=== PATIENT | female | born 1960 | race Two or more races ===

== ENCOUNTER 2025-01-03 17:07 | Emergency (ER) | payer MEDICAID, SELFPAY ==
[2025-01-03 17:07] VITALS: BMI 34.7
[2025-01-03 17:14] VITALS: BP 86/52; BP 89/56; PULSE 82; RESP 20; TEMP 37; O2SAT 99
--- NOTE | 2025-01-03 17:22 | EKG_ITS ---
[facility] Test Date: 2025-01-03 Pat Name: CIARAN VILLEGAS Department: Room: - Gender: Female Health Assistant: : 1960 Requested By: Francis Rae (LUCILA) Order Number: [id number] Reading MD: Francis Rae (SPORTS WRITER) Measurements Intervals [place] Rate: 65 P: 51 AK: 197 QRS: 249 QRSD: 166 T: 18 QT: 402 QTc: 420 Interpretive Statements SINUS RHYTHM RIGHT AXIS DEVIATION [QRS AXIS > 100] RIGHT BUNDLE BRANCH BLOCK [120+ ms QRS DURATION, UPRIGHT V1, 40+ ms S IN I/aVL/V4/V5/V6] Compared to ECG 01/09/2024 12:42:57 No significant changes /store/S0/[id number].pdf
--- NOTE | 2025-01-03 17:24 | XR_ITS ---
Examination: CT abdomen with intravenous contrast CT pelvis with intravenous contrast 2-D coronal reconstructions 2-D sagittal reconstructions Date and time of exam:1957 hours INDICATIONS: Generalized abdominal pain, history cholecystectomy 2 weeks ago. CTDI: vol (mGy) 12 DLP: (mGycm) 805 Technique: Multiple axial sections of the abdomen and pelvis have been obtained. 64 slice high-resolution scanner used. 3 mm axial sections have been obtained, post intravenous injection 60 cc Isovue 370 2-D sagittal, coronal reconstructions obtained. Low dose protocols were performed. One or more of the following dose reduction techniques were used; automated exposure control, adjustment of the mA and/or KV according to patient size, use of iterative reconstruction technique. Findings: No focal liver lesions Absent gallbladder Spleen not enlarged No pancreatic or adrenal mass No extrahepatic biliary tract dilatation No renal or ureteral calculi, no hydronephrosis Aortic calcification or aneurysmal dilatation Normal appendix Colonic diverticulosis No diverticulitis Urinary bladder and Moderate osteopenia IMPRESSION: No renal or ureteral calculi, no hydronephrosis Normal appendix Colonic diverticulosis, no diverticulitis
--- NOTE | 2025-01-03 17:24 | XR_ITS ---
Examination: AP chest single view TECHNIQUE: AP portable semiupright chest single view Date and time: 5:30, 2024, 1734 hours INDICATIONS: Chest pain and shortness of breath today. FINDINGS: Normal heart size. No pneumonia or pulmonary edema. Moderate osteopenia IMPRESSION: No pneumonia or pulmonary edema
[2025-01-03] MEDS: SODIUM CHLORIDE 0.9% 1000 ML 1,000 ML 999 ML IV (17:43)
[2025-01-03 17:45] VITALS: PULSE 65
[2025-01-03 17:53] LABS: Basophils % (Auto) 0 % (0-2.5); Eosinophils # (Auto) 0.1 Thou/mm3 (0.0-0.5); Eosinophils % (Auto) 1 % (0-10); Hemoglobin 11.2 g/dL (12.0-16.0); Immature Granulocytes % (Auto) 0 % (0-0); Immature Granulocytes Auto 0.03 Thou/mm3 (0.00-0.00); Lymphocytes # (Auto) 3.3 Thou/mm3 (1.0-4.8); Lymphocytes % (Auto) 32 % (10-50); Mean Corpuscular HGB Conc 33.9 g/dl (31.0-37.0); Mean Corpuscular Hemoglobin 28.2 pg (25.0-35.0); Mean Corpuscular Volume 83 fL (80-100); Monocytes # (Auto) 0.9 Thou/mm3 (0.0-0.8); Monocytes % (Auto) 9 % (0-12); Neutrophils # (Auto) 6.1 Thou/mm3 (1.8-7.7); Neutrophils % (Auto) 58 % (37-80); Nucleated Red Blood Cell % 0 /100 WBC (0); Platelet Count 337 Thou/mm3 (140-440); Red Blood Count 3.97 Miln/mm3 (4.00-5.20); White Blood Count 10.5 Thou/mm3 (3.6-11.0)
--- NOTE | 2025-01-03 17:54 | XR_ITS ---
Examination: CT chest with intravenous contrast 2-D sagittal and coronal reconstructions Exam date and time: January 03, 2025 1958 hours INDICATION: Shortness of breath chest pain today CTDI:vol (mGy) 14 DLP: (mGycm) 410 Technique: Multiple axial sections of the thorax have been obtained. Sections have been obtained, 3 mm slice thickness. Mediastinal and lung density settings have been obtained. Intravenous contrast administered, 60 cc Isovue-370. 2-D sagittal, coronal images obtained. Low dose protocols were performed. One or more of the following dose reduction techniques were used; automated exposure control, adjustment of the mA and/or KV according to patient size, use of iterative reconstruction technique. Findings: Mild enlargement cardiac contour No thoracic aortic aneurysm dilatation No pulmonary artery emboli on this non-CTA study No pneumonia or pulmonary edema Atelectasis in the lingular segment IMPRESSION: No mediastinal lymphadenopathy. No pneumonia or pulmonary edema Minor atelectasis in the lingular segment
--- NOTE | 2025-01-03 17:55 | XR_ITS ---
Examination: Abdomen sonogram, Limited Date and time of exam: January 03, 2025 1814 hours TECHNIQUE: Siddiqui scale sonographic images abdomen January 03, 2025 1814 hours INDICATION: Epigastric pain beginning 2 months ago FINDINGS: Absent gallbladder Common bile duct 0.3 cm Pancreatic head 1.8 cm Liver 17.8 cm fatty infiltration lobular contour Normal hepatopedal portal venous flow Patent IVC IMPRESSION: Normal common bile duct Mild hepatomegaly primary hepatocellular disease fatty infiltration
--- NOTE | 2025-01-03 18:15 | EDNOTE_ITS ---
ED Abdominal Pain RME/HPI General Chief Complaint: Abdominal Pain Stated complaint: DIZZINESS ABD/BACK PAIN X15D Time seen by provider: 01/03/25 17:53 Arrival date/time: 01/03/25 17:07 RME / HPI RME / HPI narrative: This section includes all my notes and documentations, including HPI, PE, and ED course. Chalo Weaver MD HPI: 64 y/o female presents to ED c/o severe upper abdominal pain and vomiting x several days. Patient had gall bladder removed several months ago. No other complaints. ROS: All negative except as documented in HPI. Physical Exam: General: Alert and oriented. In obvious pain. Eyes: Conjunctivae and lids clear. ENT: No nasal congestion. Neck: Supple. Heart: RRR. Lungs: No respiratory distress. Good air movement. No rhonchi, wheezing, rales. Abdomen: Soft, epigastric abdominal tenderness. Normal bowel sounds. No distension. No rebound or guarding. Back: No CVA tenderness. Skin: Warm and dry. Neuro: Alert and oriented X 3. I reviewed all diagnostic test results. My interpretation of the EKG is sinus rhythm with no acute ST?T changes. My interpretation of the chest x-ray is NAD. My review of the Abdomen/Pelvis CT report is NAD. My review of the Chest CT report is NAD. My review of the Gall Bladder US report is NAD. Blood tests unremarkable. At this point, diagnoses include Stomach Ulcer. Treatment here included Morphine, Zofran, IV fluid, famotidine, and Protonix. Significant improvement noted. Recommended more outpatient care. Based on my best medical judgment, made decision no further evaluation or treatment indicated at this time. Patient understands and agrees to the discharge instructions customized and printed, see below. Discharge instructions from Dr. Weaver: ?After evaluation, your symptoms are due to stomach ulcer (see attached handout).? ?To help heal the ulcer, take Omeprazole 40 mg every morning and Famotidine 40 mg at bedtime for a week then as needed. Tylenol with codeine for severe pain. ?Zofran for nausea/vomiting.? Clear liquid diet for 24 hours.? Then slowly advance diet as tolerated. ?Avoid food and beverages that can trigger and worsen ulcers.? See attached handout. ?See a private doctor on 01/06/25 for recheck. To make sure there is no serious intra-abdominal condition, ask for help with more investigation not available here in the ER.? Such as EGD or scoping the stomach, colonoscopy or scoping the colon, and referral to see motion picture actor. Ask to review all test results and official radiology reports, to make sure you receive all necessary follow-ups and monitoring. ?Seek immediate medical care with worsening or with any concerns. Chalo Weaver MD Related Data Previous Rx's ?Medication ?Instructions ?Recorded ciprofloxacin HCl 500 mg tablet 500 mg PO BID #14 tabs 01/09/24 (Cipro) acetaminophen 300 mg-codeine 30 mg 2 tab PO Q8H PRN pa in #20 tabs 01/03/25 tablet famotidine 40 mg tablet 40 mg PO .bedtime #30 tabs 0 01/03/25 omeprazole 40 mg capsule,delayed 40 mg PO QDAY #30 cap s 01/03/25 release ondansetron 4 mg disintegrating 4 mg PO TID PRN nausea and 01/03/25 tablet vomiting 30 days #10 tabs Allergies Allergy/AdvReac Type Severity Reaction Status Date / Time No Known Allergies Allergy Verified 01/03/25 17:09 Review of Systems Review of Systems Systems Reviewed: All systems reviewed, normal except as documented Past Medical History Surgical History SURGICAL: Positive Abdominal Surgery ED Exam Narrative Physical exam: Refer to HPI above Course Course Course Narrative: CXR is ordered for determining the etiology of shortness of breath. Quality Measures none Orders Category Date Time Status CT Screening NOW Care 01/03/25 17:[address] Screening NOW Care 01/03/25 17:54 Completed Deburring And Tooling Machine Operator NOW Care 01/03/25 17:24 Completed EKG (ED ONLY) *Do not use* NOW Care 01/03/25 17:23 Completed Insert IV NOW Care 01/03/25 17:23 Completed Saline [Insert IV] NOW Care 01/03/25 17:54 Completed Straight [In and Out Catheter] X1 Care 01/03/25 17:[address] abdomen pelvis w con Stat Exams 01/03/25 17:[address] chest w con Stat Exams 01/03/25 17:54 Completed EKG (ED Only) Stat Exams 01/03/25 17:22 Draft US gall bladder Stat Exams 01/03/25 17:55 Completed XR chest 1V portable Stat Exams 01/03/25 17:24 Completed Amylase Stat Lab 01/03/25 17:39 Completed CBC Stat Lab 01/03/25 17:39 Completed Comprehensive Metabolic Panel Stat Lab 01/03/25 17:39 Completed Iron Panel Stat Lab 01/03/25 17:39 Completed Lipase Stat Lab 01/03/25 17:39 Completed Magnesium Stat Lab 01/03/25 17:39 Completed Partial Thromboplastin Time Stat Lab 01/03/25 17:39 Completed Prothrombin Time with INR Stat Lab 01/03/25 17:39 Completed Troponin I Stat Lab 01/03/25 17:39 Completed Type and Screen Stat Lab 01/03/25 18:30 Completed Famotidine Inj [Pepcid Inj] Med 01/03/25 21:08 Discontinued 20 mg IVP X1 ONE Morphine Inj Med 01/03/25 17:54 Discontinued 6 mg IVP X1 ONE Ondansetron Inj [Zofran Inj] Med 01/03/25 17:54 Discontinued 4 mg IVP X1 ONE Pantoprazole Inj [Protonix Inj] Med 01/03/25 21:08 Discontinued 40 mg IVP X1 ONE Sodium Chloride 0.9% 1000 ml [Ns] 1,000 ml Med 01/03/25 17:23 Discontinued IV 999 mls/hr cloNIDine HCL [Catapres] Med 01/03/25 22:13 Discontinued 0.2 mg PO X1 ONE Vital Signs Vital signs: Vital Signs Temperature 98.6 F 01/03/25 17:14 Pulse Rate 82 01/03/25 17:14 Respiratory Rate 20 01/03/25 17:14 Blood Pressure 86/52 L 01/03/25 17:14 Pulse Oximetry (%) 99 01/03/25 17:14 Oxygen Delivery Method Room Air 01/03/25 17:14 Abdominal Pain MDM MDM Narrative MDM Narrative:: Scribe Attestation: I, Yola Yen am scribing for and in the presence of Dr. Weaver. Provider Notation: Although this document has been carefully reviewed, there may still be some phonetic and other typographical errors.? These errors are purely grammatical due to imperfections in the software program and should not be construed in any way to? compromise the substance of the patient's medical care during this visit. 64 y/o female presents to ED c/o severe upper abdominal pain and vomiting x several days. Patient had gall bladder removed several months ago. No other complaints. Patient data External records reviewed:: [facility] previous records (Reviewed prior ED records from 01/09/24. Patient was seen for UTI (urinary tract infection).) Clinical information provided by:: patient Social determinants that could affect healthcare access:: none Patient has the following chronic illnesses:: None reported How is presenting disease/condition affected by chronic disease/condition?: no chronic disease Evaluation data The following diagnostics were reviewed and interpreted by me:: lab results, radiology exam(s) and EKG tracing(s) Lab and/or radiology exams considered but not ordered:: None Interpretation Summary: I reviewed all diagnostic test results. My interpretation of the EKG is sinus rhythm with no acute ST?T changes. My interpretation of the chest x-ray is NAD. My review of the Abdomen/Pelvis CT report is NAD. My review of the Chest CT report is NAD. My review of the Gall Bladder US report is NAD. Blood tests unremarkable. Medications / Prescriptions Medications or Prescriptions considered but not ordered:: None Medication administrations:: Medication Administration History Discontinued Medications Clonidine (Clonidine Hcl 0.1 Mg Tablet) 0.2 mg PO X1 ONE Stop: 01/03/25 22:14 Last Admin: 01/03/25 23:18 Dose: Not Given Documented By: SE Non-Admin Reason: Cancelled by Provider Famotidine (Famotidine Inj 10 Mg/Ml Vial 2 Ml) 20 mg IVP X1 ONE Stop: 01/03/25 21:09 Last Admin: 01/03/25 23:19 Dose: 20 mg Documented By: AVERY Sodium Chloride (Ns) 1,000 mls @ 999 mls/hr IV .Q1H1M ONE Stop: 01/03/25 18:23 Last Infusion: 01/03/25 19:00 Dose: Infused Documented By: Admin: 01/03/25 17:43 Dose: 999 mls/hr Documented By: NAHOMI Morphine Sulfate (Morphine Sulf Inj 10 Mg/Ml Vial) 6 mg IVP X1 ONE Stop: 01/03/25 17:55 Last Admin: 01/03/25 18:40 Dose: 6 mg Documented By: DAQUAN Comments: HR 71 BP 195/73 SPO2 100RA Ondansetron HCl (Ondansetron Inj 2 Mg/Ml Inj 2 Ml) 4 mg IVP X1 ONE; Protocol Stop: 01/03/25 17:55 Last Admin: 01/03/25 18:40 Dose: 4 mg Documented By: TM Pantoprazole Sodium (Pantoprazole Inj 40 Mg Vial) 40 mg IVP X1 ONE Stop: 01/03/25 21:09 Last Admin: 01/03/25 23:19 Dose: 40 mg Documented By: CG Zofran, Morphine, IV fluid, Lasix, Protonix, famotidine. Consultations Consultation(s) initiated? (list below): No Diagnosis Differential diagnosis abdominal pain: abdominal pain, acute appendicitis, calculus of kidney, constipation, diverticulitis, gastroenteritis, pancreatitis, small bowel obstruction and other (GERD) Most likely diagnosis given after review of the tests above:: Stomach Ulcer Admission Indicated Admission indicated?: not indicated Explain why admission is indicated or not indicated:: With significant improvement, there was no indication for admission.? Admission Request Was there a request for admission?: No Disposition Plan Disposition Plan: Discharge Discharge Attestation Discharge Attestation: The patient and all family members were given an opportunity to ask questions and understood the discharge instructions. Discharge instructions specifically effects, indications for sooner follow up or return to the emergency department, and the expected course of current diagnosis. Patient condition: Stable Discharge Plan Plan Patient Disposition: HOME (Self Care) Prescriptions/Referrals Prescriptions/Med Rec: New famotidine 40 mg tablet 40 mg PO .bedtime Qty: 30 0RF acetaminophen-codeine 300-30 mg tablet 2 tab PO Q8H MDD 6 PRN (Reason: pain) Qty: 20 0RF omeprazole 40 mg capsule,delayed release(DR/EC) 40 mg PO QDAY Qty: 30 0RF ondansetron 4 mg tablet,disintegrating 4 mg PO TID PRN (Reason: nausea and vomiting) 30 Days Qty: 10 0RF No Action ciprofloxacin HCl [Cipro] 500 mg tablet 500 mg PO BID Qty: 14 0RF Referrals: No Primary/Family,Physician [Primary Care Provider] - In 1 week Problem List Clinical Impression: Stomach ulcer Patient/Caregiver Discharge Instructions Discharge Activity: activity as tolerated Education Materials: ED PEPTIC ULCER vs GASTRITIS Additional Instructions: Discharge instructions from Dr. Weaver: ?After evaluation, your symptoms are due to stomach ulcer (see attached handout).? ?To help heal the ulcer, take Omeprazole 40 mg every morning and Famotidine 40 mg at bedtime for a week then as needed. Tylenol with codeine for severe pain. ?Zofran for nausea/vomiting.? Clear liquid diet for 24 hours.? Then slowly advance diet as tolerated. ?Avoid food and beverages that can trigger and worsen ulcers.? See attached handout. ?See a private doctor on 01/06/25 for recheck. To make sure there is no serious intra-abdominal condition, ask for help with more investigation not available here in the ER.? Such as EGD or scoping the stomach, colonoscopy or scoping the colon, and referral to see motion picture actor. Ask to review all test results and official radiology reports, to make sure you receive all necessary follow-ups and monitoring. ?Seek immediate medical care with worsening or with any concerns. Instrucciones de elmo del Dr. Weaver: ?Despu?s de la evaluaci?n, florin s?ntomas se deben a luci ?lcera estomacal (kaitlin folleto adjunto). ?Para ayudar a cicatrizar la ?lcera, tome omeprazol 40 mg todas las ma?anas y famotidina 40 mg antes de acostarse afshin luci semana y, posteriormente, seg?n sea necesario. Tylenol con code?na para el dolor intenso. ?Zofran para las n?useas y los v?mitos. Dieta l?quida afshin 24 horas. Despu?s, aumente gradualmente la dieta seg?n la tolerancia. ?Evite alimentos y bebidas que puedan desencadenar y empeorar las ?lceras. Kaitlin folleto adjunto. ?Consulte con un m?dico particular el 01/06/25 para luci nueva revisi?n. Para asegurarse de que no haya luci afecci?n intraabdominal grave, solicite ayuda con otras pruebas que no est?n disponibles en urgencias, magali luci endoscopia estomacal (EGD) o luci endoscopia g?strica, luci colonoscopia o luci endoscopia de colon, y la derivaci?n a un gastroenter?logo. Solicite la revisi?n de todos los resultados de las pruebas y los informes radiol?gicos oficiales para asegurarse de recibir todo el seguimiento y la monitorizaci?n necesarios. ?Busque atenci?n m?dica inmediata si presenta empeoramiento o cualquier inquietud. Print Language: Angolan Stand Alone Forms: Kerry Award Info., Patient Portal Info Letter
[2025-01-03 18:20] LABS: Alanine Aminotransferase 11 U/L (10-49); Albumin, Serum 4.5 gm/dL (3.4-4.8); Albumin/Globulin Ratio 1.7 (1.2-2.2); Alkaline Phosphatase 123 U/L (46-116); Anion Gap 11 (7-16); Aspartate Amino Transferase 14 U/L (0-34); BUN/Creatinine Ratio 13 Ratio (12-20); Bilirubin,Total 0.2 mg/dL (0.3-1.2); Blood Urea Nitrogen 15 mg/dL (9-23); Calcium 9.7 mg/dL (8.3-10.6); Calcium (Corrected) 9.7 mg/dL (8.5-10.1); Carbon Dioxide 23.7 mMol/L (20.0-31.0); Chloride 100 mMol/L (98-107); Creatinine (Component) 1.2 mg/dL (0.6-1.3); Estimated Creatinine Clearance 45.8 mL/min (>60); Globulin 2.7 gm/dL (2.3-3.5); Glucose 178 mg/dL (74-106); Lipase 37 U/L (12-53); Osmolality,Calculated 274 (275-295); Potassium 4.1 mMol/L (3.4-5.1); Sodium 135 mMol/L (136-145); Total Protein 7.2 gm/dL (5.7-8.2); Troponin I < 0.020 ng/mL (0.0-0.045); eGFR 50 See Note
[2025-01-03 18:21] LABS: INR 0.9 (0.9-1.3); Partial Thromboplastin Time 27.1 Seconds (22.0-36.0); Prothrombin Time 10.1 Seconds (9.0-12.2)
[2025-01-03 18:38] VITALS: BP 165/77; PULSE 73; RESP 18; TEMP 36.8; O2SAT 99
[2025-01-03] MEDS: MORPHINE SULF INJ 10 MG/ML VIAL 6 MG IVP (18:40)
[2025-01-03] MEDS: ONDANSETRON INJ 2 MG/ML INJ 2 ML 4 MG IVP (18:40)
[2025-01-03 18:54] LABS: Amylase 41 U/L (30-118); Magnesium 1.8 mg/dL (1.6-2.6)
[2025-01-03 19:17] VITALS: BP 165/77; PULSE 74; RESP 17; TEMP 36.7; O2SAT 98
--- NOTE | 2025-01-03 19:27 | PC.NURSE ---
Jewelry Technician assumes care of patient at this time, pt is A/O x 3 with no c/o pain at this time. Bed in low position and locked with side rails up x 2 with call light in reach of patient
[2025-01-03 20:24] LABS: Iron 35 mcg/dL (50-170); Percent Iron Saturation 9 % (20-55); Total Iron Binding Capacity 360 mcg/dL (250-425); Unsaturated Iron Binding 325 (225-295)
--- NOTE | 2025-01-03 21:30 | PC.NURSE ---
Pt remains A/O x 3 with no reports of pain or acute distress. Pt bed remains in low position and locked with side rails up x 2, call light in reach
--- NOTE | 2025-01-03 23:05 | PC.NURSE ---
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
[2025-01-03 23:12] VITALS: BP 113/73; PULSE 94; RESP 19; TEMP 36.8; O2SAT 98
[2025-01-03] MEDS: PANTOPRAZOLE INJ 40 MG VIAL IVP (23:19)
[2025-01-03] MEDS: FAMOTIDINE INJ 10 MG/ML VIAL 2 ML 20 MG IVP (23:19)
== END 2025-01-03 23:48 | disposition home or self-care (01) ==
PROVIDERS: Nurse Practitioner Primary Care; Emergency Provider Emergency Medicine
DX: K25.9 Gastric ulcer, unspecified as acute or chronic, without hemorrhage or perforation (principal); R06.02 Shortness of breath; R07.9 Chest pain, unspecified; R10.13 Epigastric pain; I45.10 Unspecified right bundle-branch block
CPT/HCPCS: 36415; 71045; 71260; 74177; 76705; 80053; 81001; 82150; 83540; 83550; 83690; 83735; 84484; 85025; 85610; 85730; 86850; 86900; 86901; 93005; 96361; 96374; 96375; 99285; A4649; J2270; J2405; J2470; J3490; J7030; Q9967

== ENCOUNTER 2025-01-13 12:28 | Emergency (ER) | payer MEDICAID, SELFPAY ==
[2025-01-13 12:29] VITALS: BMI 30.9
[2025-01-13 12:43] VITALS: BP 78/50; BP 78/52; PULSE 89; RESP 18; TEMP 36.7; O2SAT 98
--- NOTE | 2025-01-13 12:48 | EDRME_ITS ---
Rapid Medical Screening Exam [facility] Arrival date/time: 01/13/25 12:28 64-year-old female with no known medical history presents to the emergency room with a chief complaint of dizziness, lightheadedness and black tarry stools. Patient states she was told she has a gastric ulcer, but has not had her appointment with her fire prevention forester yet Patient was discharged and educated to follow-up with primary care provider in the next 24 to 48 hours and return to the emergency room for any evidence of worsening signs or symptoms Chief Complaint: Abdominal Pain Time Seen by Provider: 01/13/25 12:32 Vital signs: Vital Signs Temperature 98.0 F 01/13/25 12:43 Pulse Rate 89 01/13/25 12:43 Respiratory Rate 18 01/13/25 12:43 Blood Pressure 78/52 L 01/13/25 12:43 Pulse Oximetry (%) 98 01/13/25 12:43 Oxygen Delivery Method Room Air 01/13/25 12:43 Vital signs reviewed by provider: Yes
[2025-01-13] MEDS: SODIUM CHLORIDE 0.9% 1000 ML 1,000 ML 999 ML IV (13:09)
[2025-01-13 13:28] LABS: Basophils % (Auto) 0 % (0-2.5); Eosinophils # (Auto) 0.1 Thou/mm3 (0.0-0.5); Eosinophils % (Auto) 1 % (0-10); Hematocrit 32.2 % (36.0-46.0); Hemoglobin 11.3 g/dL (12.0-16.0); Immature Granulocytes % (Auto) 1 % (0-0); Immature Granulocytes Auto 0.05 Thou/mm3 (0.00-0.00); Lymphocytes # (Auto) 1.7 Thou/mm3 (1.0-4.8); Lymphocytes % (Auto) 23 % (10-50); Mean Corpuscular HGB Conc 35.1 g/dl (31.0-37.0); Mean Corpuscular Hemoglobin 27.6 pg (25.0-35.0); Mean Corpuscular Volume 79 fL (80-100); Monocytes # (Auto) 0.8 Thou/mm3 (0.0-0.8); Monocytes % (Auto) 11 % (0-12); Neutrophils # (Auto) 4.7 Thou/mm3 (1.8-7.7); Neutrophils % (Auto) 64 % (37-80); Nucleated Red Blood Cell % 0 /100 WBC (0); Platelet Count 258 Thou/mm3 (140-440); RDW Standard Deviation 38.2 fL (36.4-46.3); Red Blood Count 4.09 Miln/mm3 (4.00-5.20); White Blood Count 7.4 Thou/mm3 (3.6-11.0)
--- NOTE | 2025-01-13 13:37 | EDNOTE_ITS ---
ED Abdominal Pain RME/HPI General Chief Complaint: Abdominal Pain Stated complaint: DIZZY, ABD PAIN Time seen by provider: 01/13/25 12:32 Arrival date/time: 01/13/25 12:28 Limitations: no limitations RME / HPI RME / HPI narrative: 01/13/25 12:28 64-year-old female with no known medical history presents to the emergency room with a chief complaint of dizziness, lightheadedness and black tarry stools. 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 was sent home on famotidine and Carafate which does not help. on the way here received a call from GI doctor in [place] has her endoscopy scheduled for tomorrow. Patient has a history complicated by surgery for lap shelly over a month ago at [facility], but was lost to follow up. ended up back at [place] when they found choledocholithiasis. Reports she is diabetic and did not know if this was from dehydration, her diabetes, or her ulcer. Related Data Previous Rx's ?Medication ?Instructions ?Recorded ciprofloxacin HCl 500 mg tablet 500 mg PO BID #14 tabs 01/09/24 (Cipro) acetaminophen 300 mg-codeine 30 mg 2 tab PO Q8H PRN pa in #20 tabs 01/03/25 tablet famotidine 40 mg tablet 40 mg PO .bedtime #30 tabs 0 01/03/25 omeprazole 40 mg capsule,delayed 40 mg PO QDAY #30 cap s 01/03/25 release ondansetron 4 mg disintegrating 4 mg PO TID PRN nausea and 01/03/25 tablet vomiting 30 days #10 tabs dicyclomine 10 mg capsule 10 mg PO TID #30 caps pantoprazole 40 mg tablet,delayed 40 mg PO QDAY #30 ta bs 01/13/25 release (Protonix) Allergies Allergy/AdvReac Type Severity Reaction Status Date / Time No Known Allergies Allergy Verified 01/03/25 17:09 Review of Systems Review of Systems Systems Reviewed: All systems reviewed, normal except as documented Constitutional Constitutional: Denies fever(s) Gastrointestinal Gastrointestinal: Reports as per HPI Genitourinary Genitourinary: Denies hematuria ED Exam General Limitations: Present no limitations General appearance: Present alert and in no apparent distress Head Head exam: Present atraumatic Eye Eye exam: Present normal appearance, PERRL and EOMI ENT ENT exam: Present normal exam, normal oropharynx and mucous membranes moist Neck Neck exam: Present normal inspection, full ROM and trachea midline Chest Chest inspection: Present normal inspection and symmetric chest wall rise Respiratory Respiratory exam: Present normal lung sounds bilaterally Cardiovascular Cardiovascular exam: Present regular rate, normal rhythm and normal heart sounds Abdominal Exam Abdominal exam: Present soft, tenderness (Epigastric, surgical scars noted, no rebound, refused rectal exam) and normal bowel sounds Extremities Exam Extremities exam: Present normal inspection and full ROM Back Exam Back exam: Present normal inspection and full ROM Psychiatric Psychiatric exam: Present normal affect and normal mood Skin Skin exam: Present warm, dry, intact and normal color Course Quality Measures none Orders Category Date Time Status Insert IV STAT Care 01/13/25 12:47 Completed CBC Stat Lab 01/13/25 13:00 Completed CMP [Comprehensive Metabolic Panel] Stat Lab 01/13/25 13:00 Completed Lipase Stat Lab 01/13/25 13:00 Completed PT [Prothrombin Time with INR] Stat Lab 01/13/25 13:00 Completed PTT [Partial Thromboplastin Time] Stat Lab 01/13/25 13:00 Completed Type and Screen Stat Lab 01/13/25 13:00 Completed UA [Urinalysis] Stat Lab 01/13/25 15:32 Completed Urine Culture Stat Lab 01/13/25 15:32 Received Morphine Inj Med 01/13/25 15:10 Discontinued 4 mg IVP X1 ONE Pantoprazole Inj [Protonix Inj] Med 01/13/25 15:10 Discontinued 40 mg IVP X1 ONE Sodium Chloride 0.9% 1000 ml [Ns] 1,000 ml Med 01/13/25 12:47 Discontinued IV 999 mls/hr Reevaluation(s) Reevaluation #1: 1636 pt is ready to go home, bp is normal, no longer in pain, and dizziness has resolved Vital Signs Vital signs: Vital Signs Temperature 98.0 F 01/13/25 12:43 Pulse Rate 89 01/13/25 12:43 Respiratory Rate 18 01/13/25 12:43 Blood Pressure 78/52 L 01/13/25 12:43 Pulse Oximetry (%) 98 01/13/25 12:43 Oxygen Delivery Method Room Air 01/13/25 12:43 Abdominal Pain MDM MDM Narrative MDM Narrative:: 64-year-old female with epigastric pain which is chronic. Was lightheaded and with low blood pressure which resolved with fluids and medications,also history of GI bleed. Today's H&H was stable and does not require further intervention. Has endoscopy appointment tomorrow and was advised to start new medications which are pantoprazole and dicyclomine and keep appointment for endoscopy. Return to ER symptoms worsen Patient data External records reviewed:: [facility] previous records Clinical information provided by:: patient Social determinants that could affect healthcare access:: other (specify) (Difficulty making appointment with PCP) Patient has the following chronic illnesses:: Recent gallbladder surgery, known GI ulcer How is presenting disease/condition affected by chronic disease/condition?: caused by Evaluation data The following diagnostics were reviewed and interpreted by me:: lab results Lab and/or radiology exams considered but not ordered:: CT scan of abdomen was considered again however unlikely to have no evolution of symptoms. Interpretation Summary: Normal CBC with stable H&H CMP showed hyponatremia however once corrected for glucose is normal. No signs of DKA. Medications / Prescriptions Medications or Prescriptions considered but not ordered:: Narcotics considered for home however given symptoms of dizziness did not want to exacerbate Medication administrations:: Medication Administration History Discontinued Medications Sodium Chloride (Ns) 1,000 mls @ 999 mls/hr IV .Q1H1M ONE Stop: 01/13/25 13:47 Last Infusion: 01/13/25 15:34 Dose: Infused Documented By: Admin: 01/13/25 13:09 Dose: 999 mls/hr Documented By: SERGIO Morphine Sulfate (Morphine Sulf Inj 10 Mg/Ml Vial) 4 mg IVP X1 ONE Stop: 01/13/25 15:11 Last Admin: 01/13/25 15:29 Dose: 4 mg Documented By: SERGIO Pantoprazole Sodium (Pantoprazole Inj 40 Mg Vial) 40 mg IVP X1 ONE Stop: 01/13/25 15:11 Last Admin: 01/13/25 15:29 Dose: 40 mg Documented By: SERGIO Change medications for home gave dose here Consultations Consultation(s) initiated? (list below): No Diagnosis Differential diagnosis abdominal pain: abdominal pain, gastroenteritis, pancreatitis and other (Hemorrhage from GI bleed) Most likely diagnosis given after review of the tests above:: Upper GI bleed stable Gastritis Admission Indicated Admission indicated?: not indicated Admission Request Was there a request for admission?: No Disposition Plan Disposition Plan: Discharge Discharge Attestation Discharge Attestation: The patient and all family members were given an opportunity to ask questions and understood the discharge instructions. Discharge instructions specifically effects, indications for sooner follow up or return to the emergency department, and the expected course of current diagnosis. Patient condition: Stable Discharge Plan Plan Patient Disposition: HOME (Self Care) Discharge Disposition comment: Follow-up with PCP in 2 to 3 days Prescriptions/Referrals Prescriptions/Med Rec: New pantoprazole [Protonix] 40 mg tablet,delayed release (DR/EC) 40 mg PO QDAY Qty: 30 0RF dicyclomine 10 mg capsule 10 mg PO TID Qty: 30 0RF No Action ciprofloxacin HCl [Cipro] 500 mg tablet 500 mg PO BID Qty: 14 0RF famotidine 40 mg tablet 40 mg PO .bedtime Qty: 30 0RF acetaminophen-codeine 300-30 mg tablet 2 tab PO Q8H MDD 6 PRN (Reason: pain) Qty: 20 0RF omeprazole 40 mg capsule,delayed release(DR/EC) 40 mg PO QDAY Qty: 30 0RF ondansetron 4 mg tablet,disintegrating 4 mg PO TID PRN (Reason: nausea and vomiting) 30 Days Qty: 10 0RF Referrals: Carol Wheeler MD [Primary Care Provider] - In 1 week Problem List Clinical Impression: Abdominal pain, Acute dehydration, Acute hypotension Patient/Caregiver Discharge Instructions Education Materials: Abdominal Pain, ED Low Blood Pressure, All Causes Print Language: Hungarian Stand Alone Forms: Kerry Award Info., Patient Portal Info Letter PA/MAINTENANCE OF WAY SUPERINTENDENT Supervising Physician PA/MAINTENANCE OF WAY SUPERINTENDENT Supervising Physician: Dr. gonzalez
[2025-01-13 13:39] LABS: INR 0.9 (0.9-1.3); Partial Thromboplastin Time 21.7 Seconds (22.0-36.0); Prothrombin Time 10.4 Seconds (9.0-12.2)
[2025-01-13 13:42] LABS: Alanine Aminotransferase 22 U/L (10-49); Albumin, Serum 4.3 gm/dL (3.4-4.8); Albumin/Globulin Ratio 1.8 (1.2-2.2); Alkaline Phosphatase 146 U/L (46-116); Anion Gap 13 (7-16); BUN/Creatinine Ratio 23 Ratio (12-20); Bilirubin,Total 0.3 mg/dL (0.3-1.2); Blood Urea Nitrogen 30 mg/dL (9-23); Calcium 9.4 mg/dL (8.3-10.6); Calcium (Corrected) 9.4 mg/dL (8.5-10.1); Carbon Dioxide 25.7 mMol/L (20.0-31.0); Chloride 96 mMol/L (98-107); Creatinine (Component) 1.3 mg/dL (0.6-1.3); Estimated Creatinine Clearance 44.6 mL/min (>60); Globulin 2.4 gm/dL (2.3-3.5); Glucose 244 mg/dL (74-106); Lipase 35 U/L (12-53); Osmolality,Calculated 284 (275-295); Potassium 4.8 mMol/L (3.4-5.1); Sodium 135 mMol/L (136-145); Total Protein 6.7 gm/dL (5.7-8.2); eGFR 46 See Note
[2025-01-13 15:23] VITALS: BP 134/78; PULSE 83; TEMP 36.7; O2SAT 99
[2025-01-13] MEDS: MORPHINE SULF INJ 10 MG/ML VIAL 4 MG IVP (15:29)
[2025-01-13] MEDS: PANTOPRAZOLE INJ 40 MG VIAL IVP (15:29)
[2025-01-13 15:36] LABS: Collection Type, Urine Clean Catch
[2025-01-13 15:49] LABS: Bilirubin,Urine Negative (Negative); Blood,Urine Negative (Negative); Clarity,Urine Clear (Clear/Hazy); Color,Urine Lt-Yellow (Lt Yel-Yel); Glucose, Urine Negative (Negative); Hyaline Casts,Urine < 1 /hpf (0-1); Ketones,Urine Negative (Negative); Leukocyte Esterase,Urine Positive (Negative); Nitrite,Urine Negative (Negative); Protein,Urine Negative (Neg - Trace); RBC,Urine 2 /hpf (0-3); Specific Gravity,Urine 1.009 (1.001-1.035); Squamous Epithelial Cell,Urine 1 /hpf (0-5); Urobilinogen,Urine Negative mg/dL (0.0-1.0); WBC,Urine 3 /hpf (0-5)
[2025-01-13 16:23] VITALS: BP 133/85; PULSE 75; RESP 14; TEMP 36.7; O2SAT 95
== END 2025-01-13 17:29 | disposition home or self-care (01) ==
PROVIDERS: Nurse Practitioner Family; Emergency Provider Family Medicine; PCP Family Medicine
DX: E86.0 Dehydration (principal); I95.9 Hypotension, unspecified; R10.9 Unspecified abdominal pain
CPT/HCPCS: 36415; 80053; 81001; 83690; 85025; 85610; 85730; 86850; 86900; 86901; 87086; 96361; 96374; 96375; 99284; J2270; J2470; J7030

== ENCOUNTER 2025-01-24 20:14 | Emergency (ER) | payer MEDICAID, SELFPAY ==
[2025-01-24 20:17] VITALS: BP 92/57; PULSE 90; RESP 17; TEMP 36.6; O2SAT 99; BMI 25.7
[2025-01-24 21:04] LABS: Collection Type, Urine Clean Catch
--- NOTE | 2025-01-24 21:05 | EDNOTE_ITS ---
ED Abdominal Pain RME/HPI General Chief Complaint: Abdominal Pain Stated complaint: abd pain dizziness and nausea Time seen by provider: 01/24/25 20:48 Arrival date/time: 01/24/25 20:14 64F with history of DM presents to ED with several months of intermittent ab pain, dizziness, and non-bloody N/V. Patient had an EGD 10 days ago in [place], but she doesn't know the results. Patient currently only has ab pain for the past week after the EGD. Limitations: no limitations Related Data Previous Rx's ?Medication ?Instructions ?Recorded ciprofloxacin HCl 500 mg tablet 500 mg PO BID #14 tabs 01/09/24 (Cipro) acetaminophen 300 mg-codeine 30 mg 2 tab PO Q8H PRN pa in #20 tabs 01/03/25 tablet famotidine 40 mg tablet 40 mg PO .bedtime #30 tabs 0 01/03/25 omeprazole 40 mg capsule,delayed 40 mg PO QDAY #30 cap s 01/03/25 release ondansetron 4 mg disintegrating 4 mg PO TID PRN nausea and 01/03/25 tablet vomiting 30 days #10 tabs dicyclomine 10 mg capsule 10 mg PO TID #30 caps pantoprazole 40 mg tablet,delayed 40 mg PO QDAY #30 ta bs 01/13/25 release (Protonix) Allergies Allergy/AdvReac Type Severity Reaction Status Date / Time No Known Allergies Allergy Verified 01/24/25 20:26 Review of Systems Review of Systems Systems Reviewed: All systems reviewed, normal except as documented Constitutional Constitutional: Reports system reviewed and no additional complaints, except as documented, Denies fever(s) and Denies headache(s) ENT Ears, Nose, Mouth, and Throat: Reports as per HPI, Denies disequilibrium, Denies headache(s) and Reports vertigo Cardiovascular Cardiovascular: Reports system reviewed and no additional complaints, except as documented, Denies chest pain and Denies dyspnea Respiratory Respiratory: Reports system reviewed and no additional complaints, except as documented, Denies cough and Denies dyspnea Gastrointestinal Gastrointestinal: Reports system reviewed and no additional complaints, except as documented, Reports as per HPI, Reports abdominal pain, Reports nausea and Reports vomiting Neurologic Neurologic: Reports system reviewed and no additional complaints, except as documented, Denies confusion, Denies disequilibrium, Denies headache(s) and Reports vertigo Psychiatric Psychiatric: Denies confusion Past Medical History Past Medical History CARDIAC: Positive Cardiac Disorders; Negative Congestive Heart Failure RESPIRATORY: Negative Chronic Obstructive Pulmonary Disease (COPD) or Asthma GENITOURINARY: Positive Renal Disease ENDOCRINE: Positive Diabetes Mellitus Type 2; Negative Diabetes Mellitus Type 1 HEMATOLOGIC: Negative Sickle Cell Disease Surgical History SURGICAL: Positive Abdominal Surgery Social History SMOKING STATUS: Never smoker ED Exam General Limitations: Present no limitations General appearance: Present alert and in no apparent distress Head Head exam: Present atraumatic Eye Eye exam: Present normal appearance, PERRL and EOMI ENT ENT exam: Present normal exam, normal oropharynx and mucous membranes moist Neck Neck exam: Present normal inspection, full ROM and trachea midline Chest Chest inspection: Present normal inspection and symmetric chest wall rise Respiratory Respiratory exam: Present normal lung sounds bilaterally Cardiovascular Cardiovascular exam: Present regular rate, normal rhythm and normal heart sounds Abdominal Exam Abdominal exam: Present soft and normal bowel sounds Abdominal tenderness: Present epigastrium and mild Extremities Exam Extremities exam: Present normal inspection and full ROM Back Exam Back exam: Present normal inspection and full ROM Neurological Exam Neurological exam: Present alert, oriented X3 and CN II-XII intact Psychiatric Psychiatric exam: Present normal affect and normal mood Skin Skin exam: Present warm, dry, intact and normal color Course Quality Measures none Orders Category Date Time Status CT Screening NOW Care 01/24/25 22:[address] Screening NOW Care 01/25/25 00:31 Completed Insert IV NOW Care 01/24/25 22:[address] angio chest abd w/wo Stat Exams 01/25/25 00:31 Taken CBC Stat Lab 01/24/25 21:20 Completed CMP [Comprehensive Metabolic Panel] Stat Lab 01/24/25 21:20 Completed INR [Prothrombin Time with INR] Stat Lab 01/24/25 21:12 Completed Lactate (Lactic Acid) Stat Lab 01/24/25 21:20 Completed Lactic Acid, 3 HR Stat Lab 01/25/25 01:18 Completed Lipase Stat Lab 01/24/25 21:20 Completed PTT [Partial Thromboplastin Time] Stat Lab 01/24/25 21:12 Completed Procalcitonin Stat Lab 01/24/25 21:20 Completed Urinalysis, C/S if Indicated Stat Lab 01/24/25 20:57 Completed Famotidine [Pepcid] Med 01/24/25 20:49 Discontinued 40 mg PO X1 ONE Pantoprazole Inj [Protonix Inj] Med 01/24/25 22:22 Discontinued 40 mg IVP X1 ONE Ringers Lactated 1000 ml [Lactated Ringers] 1,000 ml Med 01/24/25 22:22 Discontinued IV 999 mls/hr Sodium Chloride 0.9% 1000 ml [Ns] 1,000 ml Med 01/24/25 22:34 Discontinued IV 999 mls/hr Sodium Chloride 0.9% 1000 ml [Ns] 1,000 ml Med 01/24/25 22:35 Discontinued IV 999 mls/hr mg Hyd/Al Hyd/Cesar Susp [Maalox Susp] Med 01/24/25 20:49 Discontinued 30 ml PO X1 ONE Vital Signs Vital signs: Vital Signs Temperature 97.8 F 01/24/25 20: Pulse Rate 90 01/24/25 20:17 Respiratory Rate 17 01/24/25 20:17 Blood Pressure 92/57 L 01/24/25 20:17 Pulse Oximetry (%) 99 01/24/25 20:17 Oxygen Delivery Method Room Air 01/24/25 20:17 O2 at 99% on RA and WNLs Abdominal Pain MDM MDM Narrative MDM Narrative:: 64F with history of DM presents to ED with several months of intermittent ab pain, dizziness, and non-bloody N/V. Patient had an EGD 10 days ago in [place], but she doesn't know the results. Patient currently only has ab pain. Patient currently only has ab pain for the past week after the EGD. Physical exam reveals mild epigastric tenderness. Patient is afebrile, calm, and alert. Initial lactate 3.0 that decreased to WNLs w/o meds. CTA no active bleeding or other abnormalities. Mild anemia. CMP high glucose but normal anion gap. Pain improved with meds. Patient data External records reviewed:: [facility] previous records Clinical information provided by:: patient Social determinants that could affect healthcare access:: none Patient has the following chronic illnesses:: DM How is presenting disease/condition affected by chronic disease/condition?: exacerbated by Evaluation data The following diagnostics were reviewed and interpreted by me:: lab results Lab and/or radiology exams considered but not ordered:: ordered Interpretation Summary: above Medications / Prescriptions Medications or Prescriptions considered but not ordered:: ordered Medication administrations:: Medication Administration History Discontinued Medications Al Hydrox/Mg Hydrox/Simethicone (Mg Hyd/Al Hyd/Cesar (Maalox Reg) Susp 30 Ml Udc) 30 ml PO X1 ONE Stop: 01/24/25 20:50 Last Admin: 01/24/25 21:50 Dose: 30 ml Documented By: Famotidine (Famotidine 20 Mg Tablet) 40 mg PO X1 ONE Stop: 01/24/25 20:50 Last Admin: 01/24/25 21:51 Dose: 40 mg Documented By: Lactated Ringer's (Lactated Ringers) 1,000 mls @ 999 mls/hr IV .Q1H1M ONE Stop: 01/24/25 23:22 Last Admin: 01/25/25 01:35 Dose: Not Given Documented By: BD Non-Admin Reason: Cancelled by Provider Sodium Chloride (Ns) 1,000 mls @ 999 mls/hr IV .Q1H1M ONE Stop: 01/24/25 23:34 Last Infusion: 01/25/25 04:04 Dose: Infused Documented By: Admin: 01/25/25 02:18 Dose: 999 mls/hr Documented By: BD Sodium Chloride (Ns) 1,000 mls @ 999 mls/hr IV .Q1H1M ONE Stop: 01/24/25 23:35 Last Infusion: 01/25/25 04:03 Dose: Infused Documented By: Admin: 01/25/25 02:18 Dose: 999 mls/hr Documented By: BD Pantoprazole Sodium (Pantoprazole Inj 40 Mg Vial) 40 mg IVP X1 ONE Stop: 01/24/25 22:23 Last Admin: 01/25/25 02:17 Dose: 40 mg Documented By: BD above Consultations Consultation(s) initiated? (list below): No Diagnosis Differential diagnosis abdominal pain: abdominal pain, acute appendicitis, calculus of kidney, constipation, diverticulitis, endometriosis, gastroenteritis, pancreatitis, small bowel obstruction and other (gastritis) Most likely diagnosis given after review of the tests above:: gastritis Admission Indicated Admission indicated?: not indicated Admission Request Was there a request for admission?: No Disposition Plan Disposition Plan: Discharge Discharge Attestation Discharge Attestation: The patient and all family members were given an opportunity to ask questions and understood the discharge instructions. Discharge instructions specifically effects, indications for sooner follow up or return to the emergency department, and the expected course of current diagnosis. Patient condition: Stable Discharge Plan Plan Patient Disposition: HOME (Self Care) Discharge Disposition comment: Stable Prescriptions/Referrals Prescriptions/Med Rec: No Action ciprofloxacin HCl [Cipro] 500 mg tablet 500 mg PO BID Qty: 14 0RF famotidine 40 mg tablet 40 mg PO .bedtime Qty: 30 0RF acetaminophen-codeine 300-30 mg tablet 2 tab PO Q8H MDD 6 PRN (Reason: pain) Qty: 20 0RF omeprazole 40 mg capsule,delayed release(DR/EC) 40 mg PO QDAY Qty: 30 0RF ondansetron 4 mg tablet,disintegrating 4 mg PO TID PRN (Reason: nausea and vomiting) 30 Days Qty: 10 0RF pantoprazole [Protonix] 40 mg tablet,delayed release (DR/EC) 40 mg PO QDAY Qty: 30 0RF dicyclomine 10 mg capsule 10 mg PO TID Qty: 30 0RF Referrals: Yovany Garcia MD [Primary Care Provider] - In 1 week Problem List Clinical Impression: Gastritis Patient/Caregiver Discharge Instructions Education Materials: ED Gastritis (Adult) Additional Instructions: Please follow-up with PCP within 24-48 hours and return immediately if symptoms worsen. Print Language: Greek Stand Alone Forms: Patient Portal Info Letter NAZARIO/DORIS Supervising Physician NAZARIO/DORIS Supervising Physician: Dr. Weaver
[2025-01-24 21:15] LABS: Bilirubin,Urine Negative (Negative); Blood,Urine Negative (Negative); Clarity,Urine Turbid (Clear/Hazy); Color,Urine Yellow (Lt Yel-Yel); Culture Indicated,Urine Contaminated; Glucose, Urine 3+ (Negative); Hyaline Casts,Urine 1 /hpf (0-1); Ketones,Urine Trace (Negative); Leukocyte Esterase,Urine Positive (Negative); Nitrite,Urine Negative (Negative); Protein,Urine 1+ (Neg - Trace); RBC,Urine 3 /hpf (0-3); Specific Gravity,Urine 1.024 (1.001-1.035); Squamous Epithelial Cell,Urine 18 /hpf (0-5); WBC,Urine 18 /hpf (0-5)
[2025-01-24] MEDS: MG HYD/AL HYD/SIME (Maalox Reg) SUSP 30 ML UDC PO (21:50)
[2025-01-24] MEDS: FAMOTIDINE 20 MG TABLET 40 MG PO (21:51)
[2025-01-24 22:17] LABS: Basophils % (Auto) 0 % (0-2.5); Eosinophils # (Auto) 0.1 Thou/mm3 (0.0-0.5); Eosinophils % (Auto) 1 % (0-10); Hematocrit 32.4 % (36.0-46.0); Hemoglobin 11.1 g/dL (12.0-16.0); Immature Granulocytes % (Auto) 1 % (0-0); Immature Granulocytes Auto 0.09 Thou/mm3 (0.00-0.00); Lymphocytes # (Auto) 2.4 Thou/mm3 (1.0-4.8); Lymphocytes % (Auto) 18 % (10-50); Mean Corpuscular HGB Conc 34.3 g/dl (31.0-37.0); Mean Corpuscular Hemoglobin 27.6 pg (25.0-35.0); Mean Corpuscular Volume 81 fL (80-100); Monocytes # (Auto) 1.1 Thou/mm3 (0.0-0.8); Monocytes % (Auto) 8 % (0-12); Neutrophils # (Auto) 10.1 Thou/mm3 (1.8-7.7); Neutrophils % (Auto) 73 % (37-80); Nucleated Red Blood Cell % 0 /100 WBC (0); Platelet Count 404 Thou/mm3 (140-440); RDW Standard Deviation 38.8 fL (36.4-46.3); Red Blood Count 4.02 Miln/mm3 (4.00-5.20); White Blood Count 13.8 Thou/mm3 (3.6-11.0)
[2025-01-24 22:32] LABS: Alanine Aminotransferase 14 U/L (10-49); Albumin, Serum 4.5 gm/dL (3.4-4.8); Albumin/Globulin Ratio 1.8 (1.2-2.2); Alkaline Phosphatase 154 U/L (46-116); Anion Gap 9 (7-16); Aspartate Amino Transferase 16 U/L (0-34); BUN/Creatinine Ratio 11 Ratio (12-20); Bilirubin,Total 0.4 mg/dL (0.3-1.2); Blood Urea Nitrogen 15 mg/dL (9-23); Carbon Dioxide 27.3 mMol/L (20.0-31.0); Chloride 96 mMol/L (98-107); Creatinine (Component) 1.4 mg/dL (0.6-1.3); Estimated Creatinine Clearance 43.8 mL/min (>60); Globulin 2.5 gm/dL (2.3-3.5); Glucose 387 mg/dL (74-106); Lipase 28 U/L (12-53); Osmolality,Calculated 281 (275-295); Potassium 4.4 mMol/L (3.4-5.1); Procalcitonin 0.16 ng/ml (0.0-0.49); Sodium 132 mMol/L (136-145); eGFR 42 See Note
[2025-01-24 23:11] LABS: INR 0.9 (0.9-1.3); Partial Thromboplastin Time 27.5 Seconds (22.0-36.0); Prothrombin Time 10.1 Seconds (9.0-12.2)
--- NOTE | 2025-01-25 00:31 | XR_ITS ---
Examination: CTA chest, with intravenous contrast. CTA abdomen, with intravenous contrast. CT chest without intravenous contrast CT abdomen without intravenous contrast 2-D sagittal and coronal reconstructions. 3-D reconstructions. Date and time of exam: January 25, 2025 0052 hours INDICATIONS: Dizziness chest pain shortness of breath history gastric ulcers CTDI vol (mgy) 10.6 DLP (MGycm) 1146 Technique: Multiple CTA images, 2.0 mm slice thickness, obtained chest, abdomen, pelvis, with the high-resolution 64 slice scanner. 100 cc Isovue 370 is administered intravenously. Sagittal and coronal 2-D reconstructions are obtained. 3-D reconstructions, angiographic images are obtained. 3-D postprocessing, including vascular maximum intensity projections. Low dose protocols were performed. One or more of the following dose reduction techniques were used; automated exposure control, adjustment of the mA and/or KV according to patient size, use of iterative reconstruction technique. Findings: Bilateral thyromegaly including 17 mm nodule right lobe of the thyroid near the isthmus No thoracic aortic aneurysm dilatation or dissection No pulmonary artery filling defects Mild enlargement cardiac contour No pneumonia or pulmonary edema 10 mm focal area of enhancement in the posterior lateral margin of the right lobe of the liver Spleen is not enlarged Mild thickening of the lower wall of the esophagus Absent gallbladder No extrahepatic biliary tract dilatation No pancreatic or adrenal mass Moderate renal parenchymal scar formation Abdominal aortic calcification Moderate osteopenia IMPRESSION: Bilateral thyromegaly including 17 mm nodule right lobe of the thyroid near the isthmus, consider dedicated thyroid sonography follow-up No thoracic or abdominal aortic aneurysm dilatation or dissection Negative for pulmonary artery emboli No pneumonia or pulmonary edema 10 mm focal area of enhancement in the posterior lateral margin right lobe of the liver, recommend hepatic sonography follow-up Moderate bilateral renal parenchymal scar formation, no hydronephrosis or ureteral calculi
[2025-01-25 00:58] LABS: Reflex Lactate? Y
[2025-01-25 01:24] LABS: Lactic Acid, 3 HR 1.9 mMol/L (0.4-2.0)
[2025-01-25 02:08] VITALS: BP 159/83; PULSE 83; RESP 16; TEMP 36.7; O2SAT 98
[2025-01-25] MEDS: PANTOPRAZOLE INJ 40 MG VIAL IVP (02:17)
[2025-01-25] MEDS: SODIUM CHLORIDE 0.9% 1000 ML 1,000 ML 999 ML IV ×2 (02:18)
--- NOTE | 2025-01-25 03:30 | PRELIM_ITS ---
CT angiogram of the chest and Abdomen without and with intravenous contrast (axial sections with sagittal and coronal reformats) January 25, 2025 0052 hours Clinical History: Ulcers, elevated lactate, dizziness Comparison: None Findings: Chest: Heart is normal in size. There is no pericardial or pleural effusion. There is no thoracic aortic aneurysm or dissection. There is no filling defect within the pulmonary arterial circulation. Thyroid is enlarged and heterogeneous suggesting multinodular goiter. There is no thoracic lymphadenopathy. There is dependent subsegmental atelectasis in the lungs. There is no pneumothorax. There is no acute osseous abnormality. There is degenerative change in the spine. Abdomen: There is pneumobilia which is most likely postsurgical. The gallbladder is surgically absent. There is fatty liver. The spleen is not enlarged. The pancreas and adrenals are unremarkable. There is cortical scarring of the kidneys which may indicate sequelae of prior infection or prior ischemia. There is underdistention of the stomach which limits evaluation. Bowel within the abdomen is unremarkable. There are vascular calcifications along the abdominal aorta without aneurysmal dilatation. The celiac artery, superior mesenteric artery, bilateral renal arteries and inferior mesenteric artery are patent. There is no free intraperitoneal air or fluid in the abdomen. There is no abdominal lymphadenopathy. There is degenerative change in the spine. Impression: 1. No thoracic aortic aneurysm or dissection. No pulmonary arterial embolism. No pericardial or pleural effusion. No pneumothorax. Multinodular thyroid goiter. Recommend correlation with nonemergent thyroid ultrasound. 2. No abdominal aortic aneurysm or dissection. Report Electronically Signed By: Brayden Cazares 01/25/2025 3:30:13 AM [EST]
[2025-01-25 04:04] VITALS: BP 185/93; PULSE 88; RESP 16; TEMP 36.9; O2SAT 99
== END 2025-01-25 04:15 | disposition home or self-care (01) ==
PROVIDERS: Physician Assistant; Emergency Provider Emergency Medicine; PCP Family Medicine
DX: K29.70 Gastritis, unspecified, without bleeding (principal)
CPT/HCPCS: 36415; 71275; 75635; 80053; 81001; 83605; 83690; 84145; 85025; 85610; 85730; 96361; 96374; 99285; A4649; J2470; J7030; Q9967; A9270

== ENCOUNTER 2025-04-06 12:33 | Emergency (ER) | payer MEDICAID, SELFPAY ==
[2025-04-06 13:10] VITALS: BP 117/71; PULSE 80; RESP 20; TEMP 36.8; O2SAT 98
--- NOTE | 2025-04-06 13:29 | PD.EDADULT ---
ED General RME/HPI General Chief complaint: Abdominal Pain Stated complaint: ABD PAIN, NAUSEA, DIZZY, HIP PAIN X 1 DAY Time Seen by Provider: 04/06/25 13:28 Arrival date/time: 04/06/25 12:33 CC: Abdominal pain HPI ongoing since last night 1 episode of nausea vomiting last night some nausea today denies any diarrhea. Has had abdominal pain for the past 6 months but worse today. Patient has been seen by her PCP and in the emergency room for same complaint. Patient after initial interview also states that she has been having some left anterior chest pain as well as low back pain. Related Data Previous Rx's ?Medication ?Instructions ?Recorded ciprofloxacin HCl 500 mg tablet 500 mg PO BID #14 tabs 01/09/24 (Cipro) acetaminophen 300 mg-codeine 30 mg 2 tab PO Q8H PRN pain #20 tabs 01/03/25 tablet famotidine 40 mg tablet 40 mg PO .bedtime #30 tabs 01/03/25 omeprazole 40 mg capsule,delayed 40 mg PO QDAY #30 caps 01/03/25 release dicyclomine 10 mg capsule 10 mg PO TID #30 caps 01/13/25 pantoprazole 40 mg tablet,delayed 40 mg PO QDAY #30 tabs 01/13/25 release (Protonix) cephalexin 500 mg capsule 500 mg PO TID #21 caps 04/06/25 meloxicam 7.5 mg tablet 7.5 mg PO QDAY #10 tabs 04/06/25 Allergies Allergy/AdvReac Type Severity Reaction Status Date / Time No Known Allergies Allergy Verified 04/06/25 12:37 Review of Systems Review of Systems Narrative Review of Systems: GEN: No fever, no chills, no weight loss EYES: No discharge, no visual changes, no pain HEENT: No ear pain, no congestion, no sore throat PULM: No shortness of breath, no cough, no congestion CV: No chest pain, no dyspnea on exertion, no palpitations GI: No nausea, no vomiting, no diarrhea, + pain, no constipation : No frequency, no urgency, no dysuria MUSC/SKEL: No joint pain, no back pain SKIN: No rash PSYCH: No hallucinations, no depression HEME/LYMPH: No easy bleeding or bruising tendencies NEURO: No weakness, no headache ED Exam Narrative Physical exam: [General: Appears not in any acute distress Head normocephalic HEENT: Within acceptable limits Neck is supple nontender Chest equal chest rise nontender to palpation Respiratory: Clear to auscultation no wheezes crackles or rubs CV: Rate rhythm is regular no murmurs rubs or clicks Abdomen is soft diffuse tenderness throughout, no reflexive guarding or rebound tenderness, no masses positive bowel sounds all 4 quadrants Back: No CVA tenderness no spinous process tenderness from cervical spine thoracic and lumbar spine Skin: Intact no petechiae rash induration ulceration or crepitus Extremities: Moving all extremity against resistance cap refill less than 2 seconds neurosensory intact Neuro: Awake alert oriented x3 Glascow coma 15 no focal deficits] Course Quality Measures none Orders Category Date Time Status EKG (ED ONLY) *Do not use* NOW Care 04/06/25 13:31 Completed EKG (ED Only) Stat Exams 04/06/25 13:30 Draft B-Type Natriuretic Peptide Stat Lab 04/06/25 13:35 Completed CBC Stat Lab 04/06/25 13:35 Completed Comprehensive Metabolic Panel Stat Lab 04/06/25 13:35 Completed Drug Screen,Urine Stat Lab 04/06/25 13:45 Completed Lipase Stat Lab 04/06/25 13:35 Completed Magnesium Stat Lab 04/06/25 13:35 Completed Partial Thromboplastin Time Stat Lab 04/06/25 13:35 Completed Prothrombin Time with INR Stat Lab 04/06/25 13:35 Completed Troponin I Stat Lab 04/06/25 13:35 Completed Urinalysis, C/S if Indicated Stat Lab 04/06/25 13:45 Completed mg Hyd/Al Hyd/Cesar Susp [Maalox Susp] Med 04/06/25 13:28 Discontinued 30 ml PO X1 ONE Vital Signs Vital signs: Vital Signs Temperature 98.3 F 04/06/25 13:10 Pulse Rate 80 04/06/25 13:10 Respiratory Rate 20 04/06/25 13:10 Blood Pressure 117/71 04/06/25 13:10 Pulse Oximetry (%) 98 04/06/25 13:10 Oxygen Delivery Method Room Air 04/06/25 13:10 Discharge Plan Plan Patient Disposition: HOME (Self Care) Patient condition on transfer: Stable Prescriptions/Referrals Prescriptions/Med Rec: New cephalexin 500 mg capsule 500 mg PO TID Qty: 21 0RF meloxicam 7.5 mg tablet 7.5 mg PO QDAY Qty: 10 0RF No Action ciprofloxacin HCl [Cipro] 500 mg tablet 500 mg PO BID Qty: 14 0RF famotidine 40 mg tablet 40 mg PO .bedtime Qty: 30 0RF acetaminophen-codeine 300-30 mg tablet 2 tab PO Q8H MDD 6 PRN (Reason: pain) Qty: 20 0RF omeprazole 40 mg capsule,delayed release(DR/EC) 40 mg PO QDAY Qty: 30 0RF pantoprazole [Protonix] 40 mg tablet,delayed release (DR/EC) 40 mg PO QDAY Qty: 30 0RF dicyclomine 10 mg capsule 10 mg PO TID Qty: 30 0RF Problem List Clinical Impression: Abdominal pain, UTI (urinary tract infection) Patient/Caregiver Discharge Instructions Other Activity Instructions:: Take your medications as prescribed follow-up with your primary care doctor. Education Materials: Abdominal Pain, ED CYSTITIS Female Adult Print Language: Bots[place] Stand Alone Forms: Norse Award Info., Work/School Release, Patient Portal Info Letter NAZARIO/DORIS Supervising Physician NAZARIO/DORIS Supervising Physician: Alexandro MALLORYP [facility] Clinical Information Provided by patient Medical Records Reviewed [facility] Labs/Rad/Tests considered, not Ordered None Chronic Illness/Social Conditions which may negatively complicate care or outcome(s)-explain: None or not applicable EKG EKG Interpretation narrative: EKG performed at 1334 shows ventricular rate of 83 FL interval 171 QRS of 149 QTc of 427 sinus rhythm right axis deviation no change from an EKG performed in January 2025. Lab Interpretation Lab(s) interpretation(s): CBC shows no acute leukocytosis and mild anemia 11.4 and 34.4 respectively. Platelet count at 383 Coags within acceptable limits CMP shows no acute acute electrolyte imbalances and then blood glucose of 281. No transaminitis or T. bili elevation. Troponin is negative BNP is negative Lipase is negative Medication Administration(s) Medication Administration History Discontinued Medications Al Hydrox/Mg Hydrox/Simethicone (Mg Hyd/Al Hyd/Cesar (Maalox Reg) Susp 30 Ml Udc) 30 ml PO X1 ONE Stop: 04/06/25 13:29 Last Admin: 04/06/25 13:41 Dose: 30 ml Documented By: MARY
--- NOTE | 2025-04-06 13:30 | EKG_ITS ---
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
[2025-04-06] MEDS: MG HYD/AL HYD/SIME (Maalox Reg) SUSP 30 ML UDC PO (13:41)
[2025-04-06 13:59] LABS: Collection Type, Urine Clean Catch
[2025-04-06 14:01] LABS: Basophils # (Auto) 0.0 Thou/mm3 (0.0-0.2); Basophils % (Auto) 0 % (0-2.5); Eosinophils # (Auto) 0.1 Thou/mm3 (0.0-0.5); Eosinophils % (Auto) 1 % (0-10); Hematocrit 34.4 % (36.0-46.0); Hemoglobin 11.4 g/dL (12.0-16.0); Immature Granulocytes Auto 0.03 Thou/mm3 (0.00-0.00); Lymphocytes # (Auto) 3.1 Thou/mm3 (1.0-4.8); Lymphocytes % (Auto) 30 % (10-50); Mean Corpuscular HGB Conc 33.1 g/dl (31.0-37.0); Mean Corpuscular Hemoglobin 27.5 pg (25.0-35.0); Mean Corpuscular Volume 83 fL (80-100); Monocytes # (Auto) 0.8 Thou/mm3 (0.0-0.8); Monocytes % (Auto) 8 % (0-12); Neutrophils # (Auto) 6.1 Thou/mm3 (1.8-7.7); Neutrophils % (Auto) 61 % (37-80); Nucleated Red Blood Cell # 0.00 Thou/mm3 (0.00-0.00); Nucleated Red Blood Cell % 0 /100 WBC (0); Platelet Count 383 Thou/mm3 (140-440); RDW Standard Deviation 41.1 fL (36.4-46.3); Red Blood Count 4.15 Miln/mm3 (4.00-5.20); White Blood Count 10.1 Thou/mm3 (3.6-11.0)
[2025-04-06 14:22] LABS: B-Type Natriuretic Peptide 30 pg/mL (0-100)
[2025-04-06 14:36] LABS: Alanine Aminotransferase 8 U/L (10-49); Albumin, Serum 4.6 gm/dL (3.4-4.8); Albumin/Globulin Ratio 1.7 (1.2-2.2); Alkaline Phosphatase 180 U/L (46-116); Anion Gap 10 (7-16); Aspartate Amino Transferase 12 U/L (0-34); BUN/Creatinine Ratio 18 Ratio (12-20); Bilirubin,Total 0.5 mg/dL (0.3-1.2); Blood Urea Nitrogen 18 mg/dL (9-23); Calcium 10.3 mg/dL (8.3-10.6); Calcium (Corrected) 10.3 mg/dL (8.5-10.1); Carbon Dioxide 27.1 mMol/L (20.0-31.0); Chloride 100 mMol/L (98-107); Creatinine (Component) 1.0 mg/dL (0.6-1.3); Globulin 2.7 gm/dL (2.3-3.5); Glucose 281 mg/dL (74-106); Lipase 24 U/L (12-53); Magnesium 2.1 mg/dL (1.6-2.6); Osmolality,Calculated 285 (275-295); Potassium 4.6 mMol/L (3.4-5.1); Sodium 137 mMol/L (136-145); Total Protein 7.3 gm/dL (5.7-8.2); Troponin I < 0.002 ng/mL (0.0-0.045); eGFR > 60 See Note
[2025-04-06 14:41] LABS: INR 0.9 (0.9-1.3); Partial Thromboplastin Time 25.1 Seconds (22.0-36.0); Prothrombin Time 10.4 Seconds (9.0-12.2)
[2025-04-06 14:43] VITALS: BP 163/82; PULSE 76; RESP 16; TEMP 36.8; O2SAT 100
[2025-04-06 14:48] LABS: Amphetamine/Methamp Scrn,U Negative (Negative); Barbiturate Screen,Urine Negative (Negative); Benzodiazepines Screen,Urine Negative (Negative); Benzoylecgonine Screen, Ur Negative (Negative); Fentanyl Screen,Urine Negative (Negative); Opiate Screen,Urine Negative (Negative); THC Screen,Urine Negative (Negative)
[2025-04-06 14:51] LABS: Bacteria,Urine Rare; Bilirubin,Urine Negative (Negative); Blood,Urine Negative (Negative); Clarity,Urine Turbid (Clear/Hazy); Color,Urine Yellow (Lt Yel-Yel); Culture Indicated,Urine Contaminated; Glucose, Urine 3+ (Negative); Hyaline Casts,Urine 1 /hpf (0-1); Ketones,Urine Negative (Negative); Leukocyte Esterase,Urine Positive (Negative); Nitrite,Urine Negative (Negative); PH,Urine 6.0 (5.0-7.0); Protein,Urine 1+ (Neg - Trace); RBC,Urine 5 /hpf (0-3); Specific Gravity,Urine 1.022 (1.001-1.035); Squamous Epithelial Cell,Urine 12 /hpf (0-5); Transitional Epi Cells,Urine 3 /hpf (0-5); Urobilinogen,Urine Negative mg/dL (0.0-1.0); WBC,Urine 89 /hpf (0-5)
[2025-04-06 15:08] VITALS: BP 174/85; PULSE 79; RESP 16; TEMP 36.6; O2SAT 99
== END 2025-04-06 15:08 | disposition home or self-care (01) ==
LOC: SERX 15:44
PROVIDERS: Registered Nurse General Practice; Emergency Provider Family Medicine; PCP Family Medicine
DX: N39.0 Urinary tract infection, site not specified (principal); I45.10 Unspecified right bundle-branch block; R10.9 Unspecified abdominal pain
CPT/HCPCS: 36415; 80053; 80307; 81001; 83690; 83735; 83880; 84484; 85025; 85610; 85730; 93005; 99284; A9270

== ENCOUNTER 2025-04-28 15:29 | Inpatient (IN) | payer MEDICAID, SELFPAY ==
[2025-04-28] VITALS (7 sets, daily range): BP systolic 111–186; BP diastolic 64–93; PULSE 77–101; RESP 14–98; TEMP 36.6–37; O2SAT 96–100; BMI 29.0
--- NOTE | 2025-04-28 15:41 | XR_ITS ---
Examination: PA lateral chest 2 views TECHNIQUE: Upright PA lateral chest 2 views Date and time: April 28, 2025 1611 hours FINDINGS: Normal heart size No pneumonia or pulmonary edema Moderate thoracic spondylosis Moderate osteopenia IMPRESSION: No pneumonia or pulmonary edema
--- NOTE | 2025-04-28 15:41 | EKG_ITS ---
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
--- NOTE | 2025-04-28 15:56 | EDNOTE_ITS ---
ED Chest Pain RME/HPI General Chief Complaint: General Adult/Misc Complain Stated Complaint: DIZZINESS WITH VOMITIG,HEADACHE, PAIN WITH URINATI Time Seen by Provider: 04/28/25 15:33 Source: patient Arrival date/time: 04/28/25 15:29 64-year-old female with no known medical history presents to the emergency room with a chief complaint of dizziness, vomiting, headache, and dysuria x 2 days Mode of arrival: ambulatory Limitations: no limitations Related Data Home Medications ?Medication ?Instructions ?Recorded ?Confirmed atorvastatin 20 mg tablet 20 mg PO QDAY 04/29/2504/29 ferrous sulfate 325 mg (65 mg 325 mg PO Q OTHER DAY 04/29/25 iron) tablet (FeroSul) glipizide 10 mg tablet 10 mg PO BID 04/29/25 lisinopril 5 mg tablet 5 mg PO QDAY 04/29/25 metformin 1,000 mg tablet 1,000 mg PO BID 04/29/25 nitrofurantoin 100 mg PO Q12H 04/29/2504/08 monohydrate/macrocrystals 100 mg capsule (Macrobid) ondansetron 4 mg disintegrating 4 mg PO Q12H 04/29/25 04/29/25 tablet promethazine 25 mg tablet 25 mg PO Q8HR 04/29/2504/29 sitagliptin phosphate 100 mg 100 mg PO QDAY 04/29/25 0 04/29/25 tablet (Januvia) sucralfate 1 gram tablet 1 g PO BID 04/29/25 04/29/25 Previous Rx's ?Medication ?Instructions ?Recorded famotidine 40 mg tablet 40 mg PO .bedtime #30 tabs 0 01/03/25 pantoprazole 40 mg tablet,delayed 40 mg PO QDAY #30 ta bs 01/13/25 release (Protonix) Allergies Allergy/AdvReac Type Severity Reaction Status Date / Time No Known Allergies Allergy Verified 04/28/25 15:32 Review of Systems Review of Systems Systems Reviewed: All systems reviewed, normal except as documented Constitutional Constitutional: Reports system reviewed and no additional complaints, except as documented, Denies fatigue, Denies fever(s), Denies headache(s) and Denies weakness Eyes Eyes: Reports system reviewed and no additional complaints, except as documented, Denies blurry vision and Denies change in vision ENT Ears, Nose, Mouth, and Throat: Reports system reviewed and no additional complaints, except as documented, Denies otalgia, Denies headache(s), Denies nasal congestion, Denies throat swelling and Denies vertigo Cardiovascular Cardiovascular: Reports system reviewed and no additional complaints, except as documented, Reports chest pain, Reports dyspnea, Denies dyspnea on exertion, Reports lightheadedness and Reports palpitations Respiratory Respiratory: Reports system reviewed and no additional complaints, except as documented, Denies chest congestion, Denies cough, Reports dyspnea, Denies dyspnea on exertion and Denies wheezing Gastrointestinal Gastrointestinal: Reports system reviewed and no additional complaints, except as documented, Denies abdominal pain, Denies cramping, Denies nausea and Denies vomiting Genitourinary Genitourinary: Reports system reviewed and no additional complaints, except as documented Musculoskeletal Musculoskeletal: Reports system reviewed and no additional complaints, except as documented and Denies back pain Integumentary/Breasts Skin/Breast: Reports system reviewed and no additional complaints, except as documented and Denies wounds Neurologic Neurologic: Reports system reviewed and no additional complaints, except as documented, Denies confusion, Denies headache(s), Denies lack of coordination, Denies vertigo and Denies weakness Psychiatric Psychiatric: Reports system reviewed and no additional complaints, except as doc umented, Denies anxiety, Denies confusion, Denies depression, Denies paranoia, Denies suicidal ideation and Denies tactile hallucinations Endocrine Endocrine: Reports system reviewed and no additional complaints, except as documented, Denies fatigue and Reports palpitations Hematologic/Lymphatic Hematologic/Lymphatic: Reports system reviewed and no additional complaints, except as documented and Denies lymphadenopathy Allergic/Immunologic Allergic/Immunologic: Reports system reviewed and no additional complaints, except as documented, Denies throat swelling, Denies urticaria and Denies wheezing Past Medical History Past Medical History CARDIAC: Positive Cardiac Disorders, Myocardial Infarction, Angina, Hypertension and Hypotension; Negative Congestive Heart Failure RESPIRATORY: Negative Chronic Obstructive Pulmonary Disease (COPD) or Asthma GASTROINTESTINAL: Positive Gall Bladder Disease and Ulcer GENITOURINARY: Negative Renal Disease MUSCULOSKELETAL: Positive Arthritis ENDOCRINE: Positive Diabetes Mellitus Type 2; Negative Diabetes Mellitus Type 1 HEMATOLOGIC: Positive Anemia; Negative Sickle Cell Disease Family History OTHER FAMILY HX: No cardiac family history reported. Surgical History SURGICAL: Positive Abdominal Surgery OTHER SURGICAL HX: Appendectomy Social History SMOKING STATUS: Never smoker Travel History EBOLA RISK: No ED Exam General Limitations: Present no limitations General appearance: Present alert and in no apparent distress Head Head exam: Present atraumatic Eye Eye exam: Present normal appearance, PERRL and EOMI ENT ENT exam: Present normal exam, normal oropharynx and mucous membranes moist Neck Neck exam: Present normal inspection, full ROM and trachea midline Chest Chest inspection: Present normal inspection and symmetric chest wall rise Respiratory Respiratory exam: Present normal lung sounds bilaterally; Absent respiratory distress, wheezes, stridor, accessory muscle use or prolonged expiratory phase Cardiovascular Cardiovascular exam: Present regular rate, normal rhythm, normal heart sounds, +S1 and +S2; Absent tachycardia or irregular rhythm Abdominal Exam Abdominal exam: Present soft and normal bowel sounds; Absent tenderness Extremities Exam Extremities exam: Present normal inspection and full ROM Back Exam Back exam: Present normal inspection and full ROM Neurological Exam Neurological exam: Present alert, oriented X3 and CN II-XII intact Psychiatric Psychiatric exam: Present normal affect and normal mood Skin Skin exam: Present warm, dry, intact and normal color Course Quality Measures none Orders Category Date Time Status Admit to Inpatient Status Routine Admission 04/28/25 18:25 Active Patient Condition Routine Admission 04/28/25 18:25 Ordered Bedside Blood Glucose Q6HR Care 04/28/25 18:39 Active Bedside COVID-19 Antigen Test NOW Care 04/28/25 15:41 Active Bedside Influenza A&B Antigen Test NOW Care 04/28/25 15:41 Completed COVID-19 Screening Questionnaire NOW Care 04/28/25 17:07 Active Continuous Pulse Oximetry NOW Care 04/28/25 18:25 Completed Decision to Admit X1 Care 04/28/25 17:07 Completed EKG (ED ONLY) *Do not use* NOW Care 04/28/25 15:41 Completed EKG (ED ONLY) *Do not use* NOW Care 04/28/25 17:16 Completed Flu & Pneumonia Vaccine Screen ONCE Care 04/28/25 18:25 Active NPO after Midnight ONCE Care 04/28/25 18:28 Active Notify provider NEEDED Care 04/28/25 18:25 Active Sequential Compression Device QSHIFT Care 04/28/25 18:25 Active Consult to Cardiology Stat Cons 04/28/25 17:01 Ordered Diet Cardiac Diet 04/28/25 Dinner Completed Diet NPO after Midnight Diet 04/29/25 00:01 Active CA echo doppler complete Routine Exams 04/28/25 18:27 Ordered EKG (ED Only) Stat Exams 04/28/25 15:41 Draft EKG (ED Only) Stat Exams 04/28/25 17:14 Draft XR chest 2V Stat Exams 04/28/25 15:41 Completed B-Type Natriuretic Peptide Stat Lab 04/28/25 15:51 Completed Basic Metabolic Panel AM DRAW Lab 04/30/25 05:00 Ordered Basic Metabolic Panel AM DRAW Lab 05/01/25 05:00 Ordered CBC AM DRAW Lab 04/29/25 06:48 Completed CBC AM DRAW Lab 04/30/25 05:00 Ordered CBC AM DRAW Lab 05/01/25 05:00 Ordered CBC Stat Lab 04/28/25 15:51 Completed Comprehensive Metabolic Panel Stat Lab 04/28/25 15:51 Completed Drug Screen,Urine Stat Lab 04/28/25 15:59 Completed Glycohemoglobin w (eAG) AM DRAW Lab 04/29/25 06:48 Completed Magnesium Stat Lab 04/28/25 15:51 Completed PT [Prothrombin Time with INR] Stat Lab 04/28/25 15:51 Completed PTT [Partial Thromboplastin Time] Stat Lab 04/28/25 15:51 Completed Partial Thromboplastin Time AM DRAW Lab 04/30/25 05:00 Ordered Prothrombin Time with INR AM DRAW Lab 04/30/25 05:00 Ordered Troponin I Q6H Lab 04/28/25 19:06 Completed Troponin I Q6H Lab 04/29/25 01:05 Completed Troponin I Stat Lab 04/28/25 15:51 Completed Urinalysis, C/S if Indicated Stat Lab 04/28/25 15:59 Completed Urine Culture Stat Lab 04/28/25 15:59 Received Acetaminophen Tab [Tylenol Tab] Med 04/28/25 18:25 Active 650 mg PO Q6H PRN Aspirin Med 04/28/25 18:25 Discontinued 325 mg PO X1 ONE Aspirin [Ecotrin] Med 04/29/25 09:00 Hold 81 mg PO QDAY Atorvastatin Calcium [Lipitor] Med 04/28/25 21:00 Active 80 mg PO HS Dextrose 50% Syr [D50w Syringe Abboject] Med 04/28/25 18:39 Active 25 ml IV Q15MIN PRN Dextrose 50% Syr [D50w Syringe Abboject] Med 04/28/25 18:39 Active 50 ml IV Q15MIN PRN Glucagon Inj Med 04/28/25 18:39 Active 1 mg IM Q15MIN PRN HYDROcodone*/APAP 5/325 [[place] 5/325] Med 04/28/25 18:25 Active 1 tab PO Q6HR PRN Heparin Inj Med 04/28/25 18:25 Discontinued 4,000 unit IV X1 ONE Heparin/D5w 25K 250 ML Ivpb [Heparin in D5w Ivpb] Med 04/28/25 18:30 Hold 25,000 unit in 250 ml IV 11.917 units/kg/hr INSULIN LISPRO (AdmeLOG) [HumaLOG] Med 04/29/25 07:30 Discontinued See Protocol SC AC Ondansetron Inj [Zofran Inj] Med 04/28/25 18:25 Active 4 mg IVP Q6H PRN Code Status Routine Oth 04/28/25 18:25 Ordered Oxygen Delivery PRN RT 04/28/25 18:25 Active Vital Signs Vital signs: Vital Signs Temperature 98.6 F 04/28/25 15:41 Pulse Rate 101 H 04/28/25 15:41 Respiratory Rate 18 04/28/25 15:41 Blood Pressure 111/64 04/28/25 15:41 Pulse Oximetry (%) 97 04/28/25 15:41 Oxygen Delivery Method Room Air 04/28/25 15:41 Chest Pain MDM Narrative MDM Narrative:: 64-year-old female with no known medical history presents to the emergency room with a chief complaint of dizziness, vomiting, headache, and dysuria x 2 days Patient is hemodynamically stable and in no apparent distress Patient is afebrile not tachycardic not tachypneic and her O2 saturation is 97% on room air Physical examination shows clear bilateral lung sounds there is no wheezing or any abnormal breath sounds. The patient has a strong and regular rhythm S1 and S2 noted. Patient is complaining of 7 out of 10 left-sided sternal chest pain that radiates up her left arm. CBC CMP were completed and were within normal limits. Patient's troponin was elevated at 0.124. Patient's EKG showed normal sinus rhythm at [address] elevation or depression. There was a 3rd degree block. The business office associate Dr. Vasquez was consulted and his recommendations were to admit the patient and he will come and see the patient and do an echocardiogram tomorrow morning. The ospitalist team was called and the patient was admitted Patient data External records reviewed:: [facility] previous records Clinical information provided by:: patient Social determinants that could affect healthcare access:: none Patient has the following chronic illnesses:: No medical history How is presenting disease/condition affected by chronic disease/condition?: no chronic disease Evaluation data The following diagnostics were reviewed and interpreted by me:: lab results and radiology exam(s) Lab and/or radiology exams considered but not ordered:: Labs and radiology exams considered and ordered Interpretation Summary: Chest o-yis-QHGHIDEK: Normal heart size No pneumonia or pulmonary edema Moderate thoracic spondylosis Moderate osteopenia IMPRESSION: No pneumonia or pulmonary edema Medications / Prescriptions Medications or Prescriptions considered but not ordered:: Medication given Medication administrations:: Medication Administration History Acetaminophen (Acetaminophen 325 Mg Tablet) 650 mg PO Q6H PRN PRN Reason: PAIN OR FEVER > 100.4 Stop: 05/28/25 18:24 Last Admin: 04/29/25 00:31 Dose: 650 mg Documented By: AM Hydrocodone Bitart/Acetaminophen (Hydrocodone/Apap 5/325 Tablet) 1 tab PO Q6HR PRN PRN Reason: PAIN SCALE 4-10(Mod-Sev Stop: 05/03/25 18:24 Last Admin: 04/29/25 09:24 Dose: 1 tab Documented By: Admin: 04/28/25 22:44 Dose: 1 tab Documented By: AM Al Hydrox/Mg Hydrox/Simethicone (Mg Hyd/Al Hyd/Cesar (Maalox Reg) Susp 30 Ml Udc) 15 ml PO QID [facility] Stop: 05/29/25 11:59 Last Admin: 04/29/25 11:13 Dose: 15 ml Documented By: BR Aspirin (Aspirin Ec 81 Mg Tabec) 81 mg PO QDAY CARLITOS On Hold: 04/29/25 10:53 Stop: 05/29/25 08:59 Last Admin: 04/29/25 09:18 Dose: 81 mg Documented By: BR Atorvastatin Calcium (Atorvastatin Calcium 20 Mg Tablet) 80 mg PO HS [facility] Stop: 05/28/25 20:59 Last Admin: 04/28/25 21:33 Dose: 80 mg Documented By: SM Dextrose (Dextrose 50%-Water Inj 50 Ml Syringe) 25 ml IV Q15MIN PRN PRN Reason: BG 50-70 responsive npo pt Stop: 05/28/25 18:38 Dextrose (Dextrose 50%-Water Inj 50 Ml Syringe) 50 ml IV Q15MIN PRN PRN Reason: BG <50 OR BG <70 & pt unresponsive Stop: 05/28/25 18:38 Glucagon (Glucagon Inj 1 Mg Vial) 1 mg IM Q15MIN PRN PRN Reason: BG <70, and no IV access Heparin Sodium/Dextrose (Heparin In D5w Ivpb) 25,000 unit in 250 mls @ 10 mls/hr IV .Q24H [facility]; Protocol On Hold: 04/28/25 22:40 Stop: 05/12/25 18:29 Last Titration: 04/28/25 21:00 Dose: 0 units/kg/hr, 0 mls/hr Documented By: QUINCY Co-signed By: AB Admin: 04/28/25 18:56 Dose: 11.917 units/kg/hr, 10 mls/hr Documented By: NOEL Co-signed By: TANNER Ceftriaxone Sodium/Dextrose (Rocephin/D5w 1gm Iv Premix) 1 gm in 50 mls @ 100 mls/hr IV QDAY@1400 CARLITOS Stop: 05/05/25 19:06 Last Admin: 04/29/25 13:19 Dose: 100 mls/hr Documented By: Infusion: 04/28/25 20:30 Dose: Infused Documented By: Admin: 04/28/25 19:43 Dose: 100 mls/hr Documented By: QUINCY Insulin Human Lispro (Insulin Lispro (Admelog) 1 Unit/0.01 Ml Unit) 0 unit SC Q6HR [facility]; Protocol Stop: 05/29/25 11:59 Last Admin: 04/29/25 12:00 Dose: Not Given Documented By: VAMSI Non-Admin Reason: NPO Labetalol HCl (Labetalol Inj 5 Mg/Ml Vial 20 Ml) 10 mg IVP Q15M PRN PRN Reason: Hypertension Stop: 05/28/25 20:28 Ondansetron HCl (Ondansetron Inj 2 Mg/Ml Inj 2 Ml) 4 mg IVP Q6H PRN; Protocol PRN Reason: NAUSEA OR VOMITING Stop: 05/28/25 18:24 Pantoprazole Sodium (Pantoprazole Inj 40 Mg Vial) 40 mg IVP BID CARLITOS Stop: 05/29/25 10:59 Last Admin: 04/29/25 11:13 Dose: 40 mg Documented By: BR Discontinued Medications Aspirin (Aspirin 325 Mg Tablet) 325 mg PO X1 ONE Stop: 04/28/25 18:26 Last Admin: 04/28/25 18:55 Dose: 325 mg Documented By: EF Heparin Sodium (Porcine) (Heparin Sod Inj 5000 Unit/Ml Vial) 4,000 unit IV X1 ONE; Protocol Stop: 04/28/25 18:26 Last Admin: 04/28/25 18:55 Dose: 4,000 unit Documented By: EF Co-signed By: TANNER Insulin Human Lispro (Insulin Lispro (Admelog) 1 Unit/0.01 Ml Unit) 0 unit SC AC CARLITOS; Protocol Stop: 05/29/25 07:29 Insulin Human Lispro (Insulin Lispro (Admelog) 1 Unit/0.01 Ml Unit) 0 unit SC Q6HR CARLITOS; Protocol Stop: 05/29/25 11:59 Labetalol HCl (Labetalol Inj 5 Mg/Ml Vial 20 Ml) 10 mg IVP X1 ONE Stop: 04/28/25 19:05 Last Admin: 04/28/25 19:41 Dose: Not Given Documented By: QUINCY Non-Admin Reason: Change of Condition Medication given Consultations Consultation(s) initiated? (list below): Yes Consultation #1 (Physician, Specialty, Details): dr. vasquez Time: 17:00 Diagnosis Chest Pain Differential Diagnosis: stable angina, unstable angina pectoris, atypical chest pain, st elevation myocardial infarction, costochondritis, chest pain and biliary colic Most likely diagnosis given after review of the tests above:: Chest pain Admission Indicated Admission indicated?: indicated Admission Request Was there a request for admission?: Yes Admission Attestation Admission request attestation: Discussed case with [Dr. Melchor] from Hospitalist service regarding admission. Discussed patients ED course, exam findings, labs, and radiology results. The Hospitalist [agrees,declines] to accept the patient for admission. Disposition Plan Disposition Plan: Admit Discharge Plan Plan Patient Disposition: Admit Acute Care w/in Hospital Discharge Disposition comment: Stable Problem List Clinical Impression: Demand ischemia, Chest pain
[2025-04-28 16:04] LABS: Collection Type, Urine Clean Catch
[2025-04-28 16:08] LABS: Basophils # (Auto) 0.0 Thou/mm3 (0.0-0.2); Basophils % (Auto) 0 % (0-2.5); Eosinophils # (Auto) 0.0 Thou/mm3 (0.0-0.5); Eosinophils % (Auto) 0 % (0-10); Hematocrit 33.4 % (36.0-46.0); Hemoglobin 10.8 g/dL (12.0-16.0); Immature Granulocytes Auto 0.04 Thou/mm3 (0.00-0.00); Lymphocytes # (Auto) 1.1 Thou/mm3 (1.0-4.8); Lymphocytes % (Auto) 9 % (10-50); Mean Corpuscular HGB Conc 32.3 g/dl (31.0-37.0); Mean Corpuscular Hemoglobin 26.9 pg (25.0-35.0); Mean Corpuscular Volume 83 fL (80-100); Monocytes # (Auto) 1.1 Thou/mm3 (0.0-0.8); Monocytes % (Auto) 10 % (0-12); Neutrophils # (Auto) 9.4 Thou/mm3 (1.8-7.7); Neutrophils % (Auto) 81 % (37-80); Nucleated Red Blood Cell # 0.00 Thou/mm3 (0.00-0.00); Nucleated Red Blood Cell % 0 /100 WBC (0); Platelet Count 317 Thou/mm3 (140-440); RDW Standard Deviation 39.6 fL (36.4-46.3); Red Blood Count 4.01 Miln/mm3 (4.00-5.20); White Blood Count 11.6 Thou/mm3 (3.6-11.0)
[2025-04-28 16:15] LABS: Bacteria,Urine Rare; Bilirubin,Urine Negative (Negative); Blood,Urine Negative (Negative); Clarity,Urine Turbid (Clear/Hazy); Color,Urine Lt-Yellow (Lt Yel-Yel); Glucose, Urine Negative (Negative); Ketones,Urine Negative (Negative); Leukocyte Esterase,Urine Positive (Negative); Nitrite,Urine Negative (Negative); PH,Urine 7.5 (5.0-7.0); Protein,Urine 1+ (Neg - Trace); RBC,Urine 4 /hpf (0-3); Specific Gravity,Urine 1.015 (1.001-1.035); Squamous Epithelial Cell,Urine 9 /hpf (0-5); Urobilinogen,Urine Negative mg/dL (0.0-1.0); WBC,Urine 21 /hpf (0-5)
[2025-04-28 16:23] LABS: Amphetamine/Methamp Scrn,U Negative (Negative); Barbiturate Screen,Urine Negative (Negative); Benzodiazepines Screen,Urine Negative (Negative); Benzoylecgonine Screen, Ur Negative (Negative); Fentanyl Screen,Urine Negative (Negative); Opiate Screen,Urine Negative (Negative); THC Screen,Urine Negative (Negative)
[2025-04-28 16:26] LABS: B-Type Natriuretic Peptide 83 pg/mL (0-100)
[2025-04-28 16:27] LABS: Culture Indicated,Urine Yes
[2025-04-28 16:30] LABS: Alanine Aminotransferase 11 U/L (10-49); Albumin, Serum 4.2 gm/dL (3.4-4.8); Albumin/Globulin Ratio 1.6 (1.2-2.2); Alkaline Phosphatase 184 U/L (46-116); Anion Gap 8 (7-16); Aspartate Amino Transferase 20 U/L (0-34); BUN/Creatinine Ratio 13 Ratio (12-20); Bilirubin,Total 0.6 mg/dL (0.3-1.2); Blood Urea Nitrogen 14 mg/dL (9-23); Calcium 9.3 mg/dL (8.3-10.6); Calcium (Corrected) 9.3 mg/dL (8.5-10.1); Carbon Dioxide 26.9 mMol/L (20.0-31.0); Chloride 100 mMol/L (98-107); Creatinine (Component) 1.1 mg/dL (0.6-1.3); Estimated Creatinine Clearance 56.8 mL/min (>60); Globulin 2.7 gm/dL (2.3-3.5); Glucose 224 mg/dL (74-106); Magnesium 1.6 mg/dL (1.6-2.6); Osmolality,Calculated 277 (275-295); Potassium 4.4 mMol/L (3.4-5.1); Sodium 135 mMol/L (136-145); Total Protein 6.9 gm/dL (5.7-8.2); eGFR 56 See Note
[2025-04-28 16:31] LABS: Troponin I 0.126 ng/mL (0.0-0.045)
--- NOTE | 2025-04-28 17:14 | EKG_ITS ---
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
[2025-04-28 17:21] LABS: INR 1.0 (0.9-1.3); Partial Thromboplastin Time 26.6 Seconds (22.0-36.0); Prothrombin Time 10.9 Seconds (9.0-12.2)
--- NOTE | 2025-04-28 18:09 | PD.ADDPROG ---
Addendum Progress Note Addendum Date of report being addended: 04/28/25 Narrative: I Rachel Solis MD reviewed the note and agree with the resident's assessment & plan with modifications/additions/exceptions as below. I have personally reviewed labs, imaging, home meds/prior records, examined the patient, formulated and discussed management plan with the IM team. A 64-year-old female has a history of COPD, reported prior heart disease and possible [place] presented to ED with 3-day history of sharp substernal severe chest pain aggravated with exertional activity and relatively improved with rest. Further workup did reveal elevated troponin however EKG remains nonischemic with right bundle branch block and nonspecific conduction abnormality. Will admit for NSTEMI, administer aspirin 325 mg x 1 and continue with aspirin 81 mg daily, start on high intensity statin therapy, start on therapeutic anticoagulation with heparin, repeat troponin and EKG in 4 hours, obtain echocardiogram, continue telemetry, will consult cardiology for further evaluation and management of NSTEMI.
--- NOTE | 2025-04-28 18:20 | ESHP_ITS ---
Documentation for date of: 04/28/25 HPI History of Present Illness Chief complaint: Chest pain History of present illness: Jennifer Mims is a 64-year-old female with a past medical history of type 2 diabetes mellitus, hypertension, and hypercholesteremia who presents with 1 week of chest pain that has progressively worsened. She describes it as sharp, left- sided, occurs at rest and is worsened with a deep breath and improves when leaning forward. Of note, she has had recent chills, sore throat, body ache and some shortness of breath but denies any sick contacts or recent traveling. Also endorses dysuria and urinary frequency. 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 In ED, initial vitals showed HR 101, afebrile and on room air. CBC showed mild leukocytosis of 11.6, hemoglobin 10.8. CHEM panel significant for GFR 56, glucose 226, alk phos 184, and troponin of 0.126. UA showed turbid urine, LE positive, 4 RBC, 21 WBC, rare bacteria. U tox negative. CXR unremarkable. EKG showed sinus rhythm with right bundle branch block and likely undetermined and additional conduction abnormality, inverted T waves in lead I, but no ST changes. Of note, right bundle branch block dates back to 01/09/2024. Cardiology consulted and heparin drip started. Admitted for demand ischemia vs ACS and UTI. PMHx: T2DM, HTN, HLD Medications: patient cannnot recall FHx: denies family history of cardiac disease SHx: denies smoking, drinking, illicit drug use PSHx: appendectomy Review of Systems Review of Systems Systems Reviewed: All systems reviewed, normal except as documented Narrative Review of Systems: Past Medical History Past Medical History CARDIAC: Positive Myocardial Infarction (Reports it as 1 year prior, no surgical intervention or stress test per pt.) ENDOCRINE: Positive Diabetes Mellitus Type 2 Family History OTHER FAMILY HX: No cardiac family history reported. Surgical History OTHER SURGICAL HX: Appendectomy Social History SMOKING STATUS: Never smoker Travel History EBOLA RISK: No Exam Vital Signs Temp Pulse Resp BP Pulse Ox O2 Del Method 98.6 F 85 18 155/75 H 96 Room Air 04/28/25 15:41 04/28/25 17:22 04/28/25 17:22 04/28/25 17:22 04/28/25 17:22 04/28/25 17:22 Narrative Exam General: AOx3, no acute distress, able to speak full sentences HEENT: NC/AT, mucous membranes moist, bilateral sclera anicteric Cardiovascular: regular rate and rhythm, S1/S2 present, no murmurs appreciated Pulmonary: clear to auscultation bilaterally, no rales/rhonchi/wheezes Abdominal: soft, non-tender, non-distended, no rebound/guarding, normal bowel sounds present Musculoskeletal: normal ROM, trace edema in B/L lower extremities Skin: warm and dry, intact, no rashes Neuro: CN II-XII intact, no focal deficits Results: Labs 04/28/25 15:51 04/28/25 15:51 Labs: Short CBC 04/28/25 Range/Units 15:51 WBC 11.6 H (3.6-11.0) Thou/mm3 Hgb 10.8 L (12.0-16.0) g/dL Hct 33.4 L (36.0-46.0) % Plt Count 317 D (140-440) Thou/mm3 BMP 04/28/25 15:51 Sodium 135 L Potassium 4.4 Chloride 100 Carbon Dioxide 26.9 BUN 14 Creatinine 1.1 Glucose 224 H Calcium 9.3 Cardiac Enzymes 04/28/25 Range/Units 15:51 Troponin I 0.126 H* (0.0-0.045) ng/mL Liver Function 04/28/25 Range/Units 15:51 Total Bilirubin 0.6 (0.3-1.2) mg/dL AST 20 (0-34) U/L ALT 11 (10-49) U/L Alkaline Phosphatase 184 H (46-116) U/L Albumin 4.2 (3.4-4.8) gm/dL Urine 04/28/25 Range/Units 15:59 Urine Color Lt-Yellow (Lt Yel-Yel) Urine Clarity Turbid A (Clear/Hazy) Urine pH 7.5 H (5.0-7.0) Ur Specific [place] 1.015 (1.001-1.035) Urine Protein 1+ A (Neg - Trace) Urine Glucose (UA) Negative (Negative) Quality Measures Quality Measures VTE prophylaxis Advance care planning discussed with:: patient Medications Home Medications and Allergies Allergies Allergy/AdvReac Type Severity Reaction Status Date / Time No Known Allergies Allergy Verified 04/28/25 15:32 Assessment & Plan Plan Jennifer Mims is a 64-year-old female with a past medical history of type 2 diabetes mellitus, hypertension, and hypercholesteremia who is being admitted for demand ischemia vs ACS and UTI. #? NSTEMI type II vs ACS #? Pericarditis #? History of [place] Presents with progressive chest discomfort for the last 1 week with associated chills, sore throat, body aches. States that pain worsens with a deep breath and improves when leaning forward. Suspect pericarditis causing elevated troponins/NSTEMI type II versus ACS. Per history, shortness of breath appears to be more associated with likely viral illness though COVID and influenza testing negative. Initial troponin 0.126 and will trend, EKG without ST changes. ? Cardiology consulted, appreciate recommendations ? Trend troponins until negative delta ? Heparin drip started ? Given aspirin 325 mg and will begin 81 mg daily afterwards ? Atorvastatin 80 mg daily ? Pending echo ? Follow-up lipid panel, A1c #Urinary tract infection UA showed turbid urine, LE positive, 4 RBC, 21 WBC, rare bacteria. Endorses dysuria and urinary frequency. ? Rocephin 1 g IV daily ? Follow-up urine cultures #Insulin-dependent type 2 diabetes mellitus ? SSI ? Follow-up A1c ? Hypoglycemia protocol in place #Essential hypertension ? Pending med rec ? Labetalol 10 mg IV push as needed Hospital management: Disposition: tele for NSTEMI type II vs ACS, cardiology consulted and pending recs Diet: cardiac diet today and NPO after MN Lines: PIV DVT prophylaxis: SCDs, on heparin drip GI prophylaxis: not indicated CODE STATUS: full code ----- Note reviewed and agree with care plan as documented. Please refer to the note below for further details. Plan discussed with attending physician Dr. Will Barrios MD PGY-2 Internal Medicine
--- NOTE | 2025-04-28 18:27 | ECHO_ITS ---
Transthoracic Echo Report Ht (in): 67 Wt (lb): 185 Exam Location: [facility] Status: Emergency Dianeticist: Barb Mendez Indications: Procedure Performed: BP: 156 / 82 HR: 87 MEASUREMENTS (Male / Female) Normal Values 2D ECHO LV Diastolic Diameter PLAX 4.2 cm 4.2 - 5.9 / 3.9 - 5.3 cm LV Systolic Diameter PLAX 2.6 cm IVS Diastolic Thickness 1.2 cm 0.6 - 1.0 / 0.6 - 0.9 cm LVPW Diastolic Thickness 1.1 cm 0.6 - 1.0 / 0.6 - 0.9 cm LV Relative Wall Thickness 0.5 LVOT Diameter 1.9 cm LA Volume Index 36.8 cm?/m? 16 - 28 cm?/m? Ascending Aorta Diameter 2.7 cm M-MODE AV Cusp Separation MM 1.0 cm DOPPLER AV Peak Velocity 185.0 cm/s AV Peak Gradient 13.7 mmHg AV Mean Gradient 7.0 mmHg AV Velocity Time Integral 32.0 cm LVOT Peak Velocity 126.0 cm/s LVOT Peak Gradient 6.4 mmHg LVOT Velocity Time Integral 28.8 cm LVOT Cardiac Index 3528.3 cm?/min?m? AV Area Cont Eq vti 2.6 cm? AV Area Cont Eq pk 1.9 cm? MV Area PHT 4.8 cm? Mitral E Point Velocity 52.0 cm/s Mitral A Point Velocity 77.1 cm/s Mitral E to A Ratio 0.7 LV E' Lateral Velocity 7.9 cm/s Mitral E to LV E' Lateral Ratio 6.5 LV E' Septal Velocity 4.1 cm/s Mitral E to LV E' Septal Ratio 12.6 TR Peak Velocity 171.0 cm/s TR Peak Gradient 11.7 mmHg PV Peak Velocity 94.1 cm/s PV Peak Gradient 3.5 mmHg FINDINGS Left Ventricle Normal left ventricular size, wall thickness, systolic function with no obvious regional wall motion abnormalities.There is grade I diastolic dysfunction of the left ventricle (impaired relaxation pattern). . The ejection fraction is visually estimated at 55-60 %. Right Ventricle The right ventricle is normal in size and systolic function. The estimated right ventricular systolic pressure, 18 mmHg. Left Atrium The left atrial cavity size is mildly increased. Right Atrium The right atrium is normal by two-dimensional imaging, color flow and Doppler imaging with no structural abnormalities, no thrombus formation present. Atrial Septum The interatrial septum appears normal with no evidence of a shunt. Aorta The aorta is normal by two-dimensional, color flow and Doppler interrogation. Mitral Valve The mitral valve is normal by two-dimensional, color flow and Doppler interrogation.trace mitral regurgitation. Aortic Valve The aortic valve is trileaflet and normal by two-dimensional, color flow and Doppler interrogation. There is no significant aortic valve regurgitation. Tricuspid Valve The tricuspid valve is normal by two-dimensional, color flow and Doppler interrogation. There is mild tricuspid valve regurgitation. Pulmonic Valve The pulmonic valve is not well visualized. There is no significant pulmonic valve regurgitation. Vessels The pulmonary artery appears normal. The inferior vena cava pulmonary and hepatic veins appear normal. Pericardium The pericardium is normal by two-dimensional imaging. There is no significant pericardial effusion. CONCLUSIONS Indication: chest pain with elevated troponin Normal left ventricular size and function. Estimated ejection fraction is 60- 65%. Grade I diastolic dysfunction Normal right ventricular size and function. Normal RVSP Mildly dilated LA. Trace mitral and mild tricuspid regurgitation noted. No pericardial effusion. Yury Vasquez (Electronically Signed) Final Date: 29 April 2025 20:01
[2025-04-28] MEDS: HEPARIN SOD INJ 5000 UNIT/ML VIAL 4000 UNIT IV (18:55)
[2025-04-28] MEDS: Heparin/D5w 25K 250 ML Ivpb 25,000 UNIT/250 ML BAG 10 UNIT IV (18:56)
[2025-04-28 19:42] LABS: Troponin I 0.116 ng/mL (0.0-0.045)
[2025-04-28] MEDS: cefTRIAXone/D5w 1gm IV premix 1 GM/50 ML BAG IV (19:43)
[2025-04-28] MEDS: ATORVASTATIN CALCIUM 20 MG TABLET 80 MG PO (21:33)
--- NOTE | 2025-04-28 21:57 | PC.NURSE ---
heparin drip request to stop by dr. ying at 2100 due to possible gi bleed
--- NOTE | 2025-04-28 22:14 | PD.RESCONSUL ---
HPI Data of Consult Requesting Physician: Rachel Solis MD Admitting Provider: Rachel Solis MD Attending Provider: Rachel Solis MD Primary Care Provider: Yovany Garcia MD Consult Narrative Reason for consult: NSTEMI History of present illness: Jennifer Mims 64F pmhx of IDDM2, HTN, HLD, and GERD who presents to [facility] ED on 04/28 with chest pain, abdominal pain, dysuria and melena. Patient reports that she has had frequent episodes of abdominal pain and chest pain which she had come to [facility] ED for before. Describes chest pain as left-sided radiating to the back as well as having pain in the epigastric region. Reports that chest pain is alleviated by drinking water and taking a deep breath. Denies any history of gastric ulcers however per chart review, patient has presented with similar abdominal pain as well as melena in the past. Patient reports over the past week she has been having tarry black stools, has not seen a GI physician. Reports recent chills as well as urinary symptoms for the past week as well. PMHx: As above Surgical Hx: Cholecystectomy Social Hx: Never smoker, denies alcohol, recreational or illicit drug use Allergies: NKDA Medications: Per med rec In ED, BP 111/64 HR 101 afebrile saturating 97% RA, WBC 11.6, Hgb 10.8, Na 135, GFR 65, glucose 224, alk phos 184, trops 0.126->0.116 . Chest x-ray shows no pneumonia or pulmonary edema. EKG shows sinus rhythm with right bundle branch block with a rate of 82 and QTc 466. Cardiology consulted for management and workup of NSTEMI. cc:: cc: Rachel Solis MD Review of Systems Review of Systems Systems Reviewed: All systems reviewed, normal except as documented Exam Vital Signs Temp Pulse Resp BP Pulse Ox O2 Del Method 97.9 F 85 17 143/72 H 100 Room Air 04/28/25 21:50 04/28/25 21:50 04/28/25 21:50 04/28/25 21:50 04/28/25 21:50 04/28/25 21:50 Narrative Exam GENERAL: AOx3, no acute distress HEENT: NC/AT, mucous membranes dry, bilateral sclera anicteric CARDIOVASCULAR: regular rate and rhythm, S1/S2 present, no murmurs appreciated PULMONARY: clear to auscultation bilaterally, no rales/rhonchi/wheezes ABDOMINAL: soft, non-distended, no rebound/guarding, bowel sounds present, epigastric tenderness on palpation, right lower quadrant tenderness on palpation EXTREMITIES: no peripheral edema SKIN: warm and dry, intact, no rashes NEURO: CN II-XII grossly intact, no focal deficits, alert, following commands Results Labs 04/29/25 06:48 04/29/25 06:48 Labs: Short CBC 04/28/25 Range/Units 15:51 WBC 11.6 H (3.6-11.0) Thou/mm3 Hgb 10.8 L (12.0-16.0) g/dL Hct 33.4 L (36.0-46.0) % Plt Count 317 D (140-440) Thou/mm3 BMP 04/28/25 15:51 Sodium 135 L Potassium 4.4 Chloride 100 Carbon Dioxide 26.9 BUN 14 Creatinine 1.1 Glucose 224 H Calcium 9.3 Cardiac Enzymes 04/28/25 04/28/25 Range/Units 15:51 19:06 Troponin I 0.126 H* 0.116 H* (0.0-0.045) ng/mL Liver Function 04/28/25 Range/Units 15:51 Total Bilirubin 0.6 (0.3-1.2) mg/dL AST 20 (0-34) U/L ALT 11 (10-49) U/L Alkaline Phosphatase 184 H (46-116) U/L Albumin 4.2 (3.4-4.8) gm/dL Urine 04/28/25 Range/Units 15:59 Urine Color Lt-Yellow (Lt Yel-Yel) Urine Clarity Turbid A (Clear/Hazy) Urine pH 7.5 H (5.0-7.0) Ur Specific [place] 1.015 (1.001-1.035) Urine Protein 1+ A (Neg - Trace) Urine Glucose (UA) Negative (Negative) Quality Measures Quality Measures VTE prophylaxis Advance care planning discussed with:: patient Medications Home Medications and Allergies Allergies Allergy/AdvReac Type Severity Reaction Status Date / Time No Known Allergies Allergy Verified 04/28/25 15:32 Visit Medications Acetaminophen (Acetaminophen 325 Mg Tablet) 650 mg PO Q6H PRN PRN Reason: PAIN OR FEVER > 100.4 Stop: 05/28/25 18:24 Hydrocodone Bitart/Acetaminophen (Hydrocodone/Apap 5/325 Tablet) 1 tab PO Q6HR PRN PRN Reason: PAIN SCALE 4-10(Mod-Sev Stop: 05/03/25 18:24 Aspirin (Aspirin Ec 81 Mg Tabec) 81 mg PO QDAY CARLITOS Stop: 05/29/25 08:59 Atorvastatin Calcium (Atorvastatin Calcium 20 Mg Tablet) 80 mg PO HS CARLITOS Stop: 05/28/25 20:59 Last Admin: 04/28/25 21:33 Dose: 80 mg Dextrose (Dextrose 50%-Water Inj 50 Ml Syringe) 25 ml IV Q15MIN PRN PRN Reason: BG 50-70 responsive npo pt Stop: 05/28/25 18:38 Dextrose (Dextrose 50%-Water Inj 50 Ml Syringe) 50 ml IV Q15MIN PRN PRN Reason: BG <50 OR BG <70 & pt unresponsive Stop: 05/28/25 18:38 Glucagon (Glucagon Inj 1 Mg Vial) 1 mg IM Q15MIN PRN PRN Reason: BG <70, and no IV access Heparin Sodium/Dextrose (Heparin In D5w Ivpb) 25,000 unit in 250 mls @ 10 mls/hr IV .Q24H CARLITOS; Protocol Stop: 05/12/25 18:29 Last Titration: 04/28/25 21:00 Dose: 0 units/kg/hr, 0 mls/hr Ceftriaxone Sodium/Dextrose (Rocephin/D5w 1gm Iv Premix) 1 gm in 50 mls @ 100 mls/hr IV QDAY@1400 CARLTIOS Stop: 05/05/25 19:06 Last Infusion: 04/28/25 20:30 Dose: Infused Insulin Human Lispro (Insulin Lispro (Admelog) 1 Unit/0.01 Ml Unit) 0 unit SC AC [facility]; Protocol Stop: 05/29/25 07:29 Labetalol HCl (Labetalol Inj 5 Mg/Ml Vial 20 Ml) 10 mg IVP Q15M PRN PRN Reason: Hypertension Stop: 05/28/25 20:28 Ondansetron HCl (Ondansetron Inj 2 Mg/Ml Inj 2 Ml) 4 mg IVP Q6H PRN; Protocol PRN Reason: NAUSEA OR VOMITING Stop: 05/28/25 18:24 Discontinued Medications Aspirin (Aspirin 325 Mg Tablet) 325 mg PO X1 ONE Stop: 04/28/25 18:26 Last Admin: 04/28/25 18:55 Dose: 325 mg Heparin Sodium (Porcine) (Heparin Sod Inj 5000 Unit/Ml Vial) 4,000 unit IV X1 ONE; Protocol Stop: 04/28/25 18:26 Last Admin: 04/28/25 18:55 Dose: 4,000 unit Labetalol HCl (Labetalol Inj 5 Mg/Ml Vial 20 Ml) 10 mg IVP X1 ONE Stop: 04/28/25 19:05 Last Admin: 04/28/25 19:41 Dose: Not Given Assessment & Plan Plan Jennifer Prasanna 64F pmhx of IDDM2, HTN, HLD, and GERD who presents to [facility] ED on 04/28 with 1 week of chest pain, abdominal pain, dysuria and melena. Cardiology consulted for management workup for NSTEMI. #NSTEMI likely type II #Melena vs #UTI Patient presented with chest pain with associated abdominal pain, dysuria and melena. Admission troponins of 0.126 eventually down trended to 0.116 and Hgb 10.4 baseline ~11. EKG showing sinus rhythm with right bundle branch block with a rate of [address] segment elevation or depression. Patient reports that she has had this chest pain before and is relieved with water. Ddx includes demand ischemia secondary to acute blood loss from gastric ulcers leading to melena versus demand ischemia secondary to urinary tract infection. Type I NSTEMI not completely ruled out due to patient's numerous comorbidities such as HTN and IDDM2 as well as heavy aortic calcification seen on CT abdomen pelvis in 12/2024. Plan: - Recommend GI consultation to evaluate melena and discontinue heparin drip iso melena - Abx for UTI per primary team - CTM CBC and CMP - Telemetry for further cardiac monitoring - Keep K>4 and Mg>2 at all times #HTN Patient reports being on antihypertensive however does not know the name, per chart review lisinopril 10 mg daily. BP on admission 111/64 Plan: - Antihypertensives not indicated at this time - CTM BP #IDDM2 Per chart review, patient has diabetes and was recent prescribed insulin Plan: - SSI - Management per primary team - Recommend obtaining A1c and lipid panel for comprehensive management #Bilateral thyromegaly including 17 mm nodule right lobe of the thyroid near the isthmus #Right lobe liver 10 mm focal area of enhancement Chronic medical conditions nonpertinent to the following presentation Plan: - Management per primary team Thank you for the consultation and allowing participation in patient care Plan of care discussed with attending Dr. Vasquez. Rose Carey, DO PGY-1 Internal Medicine Attending Provider Attestation/Addendum I have personally seen and examined the patient separately on the above date of service and discussed the plan of care with the resident. I reviewed the resident Dr. Rose Carey consultation progress note and agree with the resident findings and plan in the note above and have also edited the documentation to reflect my findings and plan. A 64-year-old female with a past medical history of uncontrolled type 2 diabetes mellitus, essential hypertension, hyperlipidemia, GERD came into the emergency department for further evaluation of epigastric pain, left-sided chest pain as well as abdominal pain and generalized body pains. Patient also has been having black stools over the last 1 week. Patient was admitted to the emergency department in the last couple of months for the similar complaint of abdominal pain. There was history of questionable gastric ulcers that was noted in the chart but that could not be confirmed from the patient. Patient continued to have some left-sided chest pain which is she describes as radiating to the back and also to the epigastrium. The pain is reproducible in the epigastric area as well as the right lower quadrant as well as on the chest. She said he is around 4-5/10 in intensity. No previous history of any heart disease. Denies any smoking alcohol or drug abuse. Used to work in the [employer] previously and now is retired. Patient denies any kind of significant family history of any heart disease. EKG showed normal sinus rhythm with right bundle branch block and no other acute ST-T changes suggestive of ischemia. Cardiology was consulted and the initial troponin was 0.126. Patient troponin was 0.126. Patient chest pain appears to be more of atypical rather than typical. Also has some reproducibility at times. Her main complaints appear to be more abdominal at the present point of time and concerning is her melena as well as the UTI. The repeat troponin is at 0.11. Recommend no heparin drip for the present point of time. No aspirin for now until the GI bleed is ruled out as this patient is having melena. Recommend GI workup with EGD and colonoscopy for the same. High intensity statin for now and check cholesterol profile TSH free T4 A1c as well as lipid profile for further cardiac risk stratification. Echocardiogram to evaluate for any LV function RV function diastolic function and to rule out any regional wall motion abnormalities. Patient does have risk factors including hypertension uncontrolled diabetes mellitus and hyperlipidemia along with age and will need further ischemic workup which can all be done as outpatient once the patient is being investigated further melena as well as treatment for the UTI. Will follow-up with echocardiogram results. Management of rest of the medical conditions as per primary team and other consultants. Thank you for the consult and allowing me to participate in the care of the patient. Cardiology will continue to follow. Yury Vasquez M.D. Interventional Cardiology
[2025-04-28] MEDS: HYDROcodone/APAP 5/325 TABLET 1 TAB PO (22:44)
[2025-04-29] VITALS (22 sets, daily range): BP systolic 97–193; BP diastolic 57–98; PULSE 70–108; RESP 16–95; TEMP 36.1–37.8; O2SAT 94–99; BMI 29.0
[2025-04-29] MEDS: ACETAMINOPHEN 325 MG TABLET 650 MG PO (00:31)
[2025-04-29 01:43] LABS: Troponin I 0.084 ng/mL (0.0-0.045)
[2025-04-29 07:14] LABS: Basophils # (Auto) 0.0 Thou/mm3 (0.0-0.2); Basophils % (Auto) 0 % (0-2.5); Eosinophils # (Auto) 0.0 Thou/mm3 (0.0-0.5); Eosinophils % (Auto) 0 % (0-10); Hematocrit 32.5 % (36.0-46.0); Hemoglobin 10.7 g/dL (12.0-16.0); Immature Granulocytes Auto 0.04 Thou/mm3 (0.00-0.00); Lymphocytes # (Auto) 2.2 Thou/mm3 (1.0-4.8); Lymphocytes % (Auto) 23 % (10-50); Mean Corpuscular HGB Conc 32.9 g/dl (31.0-37.0); Mean Corpuscular Hemoglobin 27.2 pg (25.0-35.0); Mean Corpuscular Volume 83 fL (80-100); Monocytes # (Auto) 1.0 Thou/mm3 (0.0-0.8); Monocytes % (Auto) 11 % (0-12); Neutrophils # (Auto) 6.0 Thou/mm3 (1.8-7.7); Neutrophils % (Auto) 65 % (37-80); Nucleated Red Blood Cell # 0.00 Thou/mm3 (0.00-0.00); Nucleated Red Blood Cell % 0 /100 WBC (0); Platelet Count 310 Thou/mm3 (140-440); RDW Standard Deviation 39.0 fL (36.4-46.3); Red Blood Count 3.93 Miln/mm3 (4.00-5.20); White Blood Count 9.3 Thou/mm3 (3.6-11.0)
[2025-04-29 07:34] LABS: Glucose Estimated Average 263 mg/dL (80-131); Hemoglobin A1C 10.8 % Hgb (4.8-6.0)
[2025-04-29 09:12] LABS: Anion Gap 6 (7-16); BUN/Creatinine Ratio 15 Ratio (12-20); Blood Urea Nitrogen 18 mg/dL (9-23); Calcium 9.1 mg/dL (8.3-10.6); Carbon Dioxide 27.9 mMol/L (20.0-31.0); Cardiac Risk Estimate 4.2 RATIO (3.7-5.6); Chloride 101 mMol/L (98-107); Cholesterol 130 mg/dL (132-200); Creatinine (Component) 1.2 mg/dL (0.6-1.3); Estimated Creatinine Clearance 52.0 mL/min (>60); Glucose 204 mg/dL (74-106); HDL Cholesterol 31 mg/dL (40-60); LDL Cholesterol,Calculated 78 mg/dL (0-130); Magnesium 1.9 mg/dL (1.6-2.6); Osmolality,Calculated 278 (275-295); Phosphorous 4.9 mg/dL (2.4-5.1); Potassium 4.0 mMol/L (3.4-5.1); Sodium 135 mMol/L (136-145); Thyroid Stimulating Hormone 0.01 uIU/mL (0.55-4.78); Triglycerides 106 mg/dL (30-150); eGFR 50 See Note
[2025-04-29] MEDS: ASPIRIN EC 81 MG TABEC PO (09:18)
[2025-04-29] MEDS: HYDROcodone/APAP 5/325 TABLET 1 TAB PO (09:24)
[2025-04-29] MEDS: MG HYD/AL HYD/SIME (Maalox Reg) SUSP 30 ML UDC 15 ML PO ×3 (11:13→20:57)
[2025-04-29 11:46] LABS: Free T4 (Free Thyroxine) 1.49 ng/dL (0.89-1.76)
--- NOTE | 2025-04-29 12:03 | PC.SS ---
SS met with patient who is alert/oriented. Patient was admitted for chest pain. Patient is Albanian speaking only. policy analyst present. Patient confirmed she resides at home with another family member. Patient is independent with ADL's. No DME at home. Patient was admitted for chest pain. Patient states her PCP: @ [facility]. Last appt. was a week ago. Patient has not met with the [employer] Sales Representative for o/p services. Patient pharmacy: [facility]. Transportation is provided by friends and family. Patient has a history of diabetes. She uses a glucometer machine. Discharge plan is to return home. Alt medical decision maker: DaughterMarine,
--- NOTE | 2025-04-29 13:11 | ESPR_ITS ---
<Statement entered by Geo Barrios MD - 04/29/25 20:06> No acute overnight events. Seen and examined at bedside and patient resting comfortably in bed. Patient endorses having dark tarry stools for the last 4 months after second gallbladder related procedure. Per patient states that she had 2 procedures for her gallbladder for unknown reasons. GI consulted and pending EGD today and will follow-up results and recommendations. Otherwise, troponins peaked and cardiology following. ----- Note reviewed and agree with care plan as documented. Please refer to the note below for further details. Plan discussed with attending physician Dr. Hannah Barrios MD PGY-2 Internal Medicine Documentation for date of: 04/29/25 Subjective Subjective Interval history: 64 yo F w/ PMH T2DM, HTN, HLD presented to ED 04/29/25 with x1 week worsening chest pain, dysuria, frequency. Admitted for management of possible ACS vs demand ischemia + UTI. Pt became febrile at midnight last night which self-resolved within an hour. Additionally pt became hypertensive to 140s-180s SPB, administered x1 [place] for pain at 2200 last night with subsequent BP normalization. Telemetry overnight showed sinus to sinus tachycardia with the highest 110 HR. This morning pt continues to report chest pain and epigastric pain, both 6/10 and both improving from yesterday 7-8. Pt also endorses ongoing fatigue, melena, subjective fever, chills, lightheadedness, dysuria, nausea. Denies SOB, vomiting, diarrhea. Pt revealed this morning that they had undergone a cholecystectomy 8 months ago that was repeated d/t stone retention 4 months ago. At this time, she initially developed melena. Cardiology Dr. Vasquez is following, consulted yesterday. Exam Vital Signs Temp Pulse Resp BP Pulse Ox O2 Del Method 96.9 F 74 17 156/82 H 99 Room Air 04/29/25 08:00 04/29/25 08:00 04/29/25 08:00 04/29/25 08:00 04/29/25 08:00 04/29/25 08:00 Narrative Exam General: AOx3, no acute distress, able to speak full sentences HEENT: NC/AT, mucous membranes moist, bilateral sclera anicteric Cardiovascular: regular rate and rhythm, S1/S2 present, no murmurs appreciated Pulmonary: clear to auscultation bilaterally, no rales/rhonchi/wheezes Abdominal: 6/10 epigastric pain upon palpation, soft, non-distended, no rebound/guarding, normal bowel sounds present Musculoskeletal: normal ROM, trace edema in B/L lower extremities Skin: warm and dry, intact, no rashes Neuro: CN II-XII intact, no focal deficits Objective Labs 04/30/25 05:05 04/30/25 05:05 Labs: Laboratory Results - last 24 hr 04/28/25 04/28/25 04/28/25 15:51 15:59 19:06 WBC 11.6 H RBC 4.01 Hgb 10.8 L Hct 33.4 L MCV 83 MCH 26.9 MCHC 32.3 RDW Std Deviation 39.6 Plt Count 317 D Neut % (Auto) 81 H Lymph % (Auto) 9 L [place]ukes % (Auto) 10 Eos % (Auto) 0 Baso % (Auto) 0 Neut # (Auto) 9.4 H Lymph # (Auto) 1.1 [place]ukes # (Auto) 1.1 H Eos # (Auto) 0.0 Baso # (Auto) 0.0 Immature Gran # (Auto) 0.04 H Absolute Nucleated RBC 0.00 Immature Gran % 0 Nucleated RBC % 0 PT 10.9 INR 1.0 APTT 26.6 Sodium 135 L Potassium 4.4 Chloride 100 Carbon Dioxide 26.9 Anion Gap 8 BUN 14 Creatinine 1.1 Estim Creat Clear Calc 56.8 L eGFR 56 L BUN/Creatinine Ratio [address]ucose [address] Glu mg/dL Hemoglobin A1c Calculated Osmolality 277 Calcium 9.3 Corrected Calcium 9.3 Phosphorus Magnesium 1.6 Total Bilirubin 0.6 AST 20 ALT 11 Alkaline Phosphatase 184 H Troponin I 0.126 H* 0.116 H* B-Natriuretic Peptide 83 Total Protein 6.9 Albumin 4.2 Globulin 2.7 Albumin/Globulin Ratio 1.6 Triglycerides Cholesterol LDL Cholesterol, Calc HDL Cholesterol Cholesterol/HDL Ratio TSH Free T4 Ur Collection Type Clean Catch Urine Color Lt-Yellow Urine Clarity Turbid A Urine pH 7.5 H Ur Specific [place] 1.015 Urine Protein 1+ A Urine Glucose (UA) Negative Urine Ketones Negative Urine Blood Negative Urine Nitrite Negative Urine Bilirubin Negative Urine Urobilinogen (Auto) Negative Ur Leukocyte Esterase Positive Urine RBC 4 H Urine WBC 21 H Ur Squamous Epith Cells 9 H Urine Bacteria Rare Ur Culture Indicated? Yes Urine Opiates Screen Negative Urine Fentanyl Screen Negative Ur Barbiturates Screen Negative U Amphetamin/Meth Scrn Negative U Benzodiazepines Scrn Negative U Cocaine Metab Screen Negative U Marijuana (THC) Screen Negative 04/29/25 04/29/25 01:05 06:48 WBC 9.3 RBC 3.93 L Hgb 10.7 L Hct 32.5 L MCV 83 MCH 27.2 MCHC 32.9 RDW Std Deviation 39.0 Plt Count 310 Neut % (Auto) 65 Lymph % (Auto) 23 [place]ukes % (Auto) 11 Eos % (Auto) 0 Baso % (Auto) 0 Neut # (Auto) 6.0 Lymph # (Auto) 2.2 [place]ukes # (Auto) 1.0 H Eos # (Auto) 0.0 Baso # (Auto) 0.0 Immature Gran # (Auto) 0.04 H Absolute Nucleated RBC 0.00 Immature Gran % 0 Nucleated RBC % 0 PT INR APTT Cancelled Sodium 135 L Potassium 4.0 Chloride 101 Carbon Dioxide 27.9 Anion Gap 6 L BUN 18 Creatinine 1.2 Estim Creat Clear Calc 52.0 L eGFR 50 L BUN/Creatinine Ratio [address]ucose [address] Glu mg/dL 263 H Hemoglobin A1c 10.8 H Calculated Osmolality 278 Calcium 9.1 Corrected Calcium Phosphorus 4.9 Magnesium 1.9 Total Bilirubin AST ALT Alkaline Phosphatase Troponin I 0.084 H* Cancelled B-Natriuretic Peptide Total Protein Albumin Globulin Albumin/Globulin Ratio Triglycerides 106 Cholesterol 130 L LDL Cholesterol, Calc 78 HDL Cholesterol 31 L Cholesterol/HDL Ratio 4.2 TSH 0.01 L* Free T4 1.49 Ur Collection Type Urine Color Urine Clarity Urine pH Ur Specific [place] Urine Protein Urine Glucose (UA) Urine Ketones Urine Blood Urine Nitrite Urine Bilirubin Urine Urobilinogen (Auto) Ur Leukocyte Esterase Urine RBC Urine WBC Ur Squamous Epith Cells Urine Bacteria Ur Culture Indicated? Urine Opiates Screen Urine Fentanyl Screen Ur Barbiturates Screen U Amphetamin/Meth Scrn U Benzodiazepines Scrn U Cocaine Metab Screen U Marijuana (THC) Screen Quality Measures Quality Measures VTE prophylaxis Advance care planning discussed with:: patient Assessment & Plan Assessment Current Active Medications: Generic Name Dose Route Start Last Admin Trade Name Freq PRN Reason Stop Dose Admin Acetaminophen 650 mg 04/28/25 18:25 04/29/25 00:31 Acetaminophen 325 Mg Tablet PO 05/28/25 18:24 650 mg Q6H PRN Administration PAIN OR FEVER > 100.4 Hydrocodone Bitart/Acetaminophen 1 tab 04/28/25 18:25 04/29/25 09:24 Hydrocodone/Apap 5/325 Tablet PO 05/03/25 18:24 1 tab Q6HR PRN Administration PAIN SCALE 4-10(Mod-Sev Al Hydrox/Mg Hydrox/Simethicone 15 ml 04/29/25 12:00 04/29/25 11:13 Mg Hyd/Al Hyd/Cesar (Maalox Reg) Susp 30 Ml Udc PO 05/29/25 11:59 15 ml QID CARLITOS Administration Aspirin 81 mg 04/29/25 09:00 04/29/25 09:18 Aspirin Ec 81 Mg Tabec PO 05/29/25 08:59 81 mg On Hold: 04/29/25 10:53 QDAY CARLITOS Administration Atorvastatin Calcium 80 mg 04/28/25 21:00 04/28/25 21:33 Atorvastatin Calcium 20 Mg Tablet PO 05/28/25 20:59 80 mg HS CARLITOS Administration Dextrose 25 ml 04/28/25 18:39 Dextrose 50%-Water Inj 50 Ml Syringe IV 05/28/25 18:38 Q15MIN PRN BG 50-70 responsive npo pt Dextrose 50 ml 04/28/25 18:39 Dextrose 50%-Water Inj 50 Ml Syringe IV 05/28/25 18:38 Q15MIN PRN BG <50 OR BG <70 & pt unresponsive Glucagon 1 mg 04/28/25 18:39 Glucagon Inj 1 Mg Vial IM Q15MIN PRN BG <70, and no IV access Heparin Sodium/Dextrose 25,000 unit in 250 mls @ 10 mls/hr 04/28/25 18:30 04/28/25 21:00 Heparin In D5w Ivpb IV 05/12/25 18:29 0 units/kg/hr On Hold: 04/28/25 22:40 .Q24H CARLITOS 0 mls/hr Protocol Titration 11.917 UNITS/KG/HR Ceftriaxone Sodium/Dextrose 1 gm in 50 mls @ 100 mls/hr 04/28/25 19:07 04/28/25 20:30 Rocephin/D5w 1gm Iv Premix IV 05/05/25 19:06 Infused QDAY@1400 CARLITOS Infusion Insulin Human Lispro 0 unit 04/29/25 12:00 04/29/25 12:00 Insulin Lispro (Admelog) 1 Unit/0.01 Ml Unit SC 05/29/25 11:59 Not Given Q6HR [facility] Protocol Labetalol HCl 10 mg 04/28/25 20:29 Labetalol Inj 5 Mg/Ml Vial 20 Ml IVP 05/28/25 20:28 Q15M PRN Hypertension Ondansetron HCl 4 mg 04/28/25 18:25 Ondansetron Inj 2 Mg/Ml Inj 2 Ml IVP 05/28/25 18:24 Q6H PRN NAUSEA OR VOMITING Protocol Pantoprazole Sodium 40 mg 04/29/25 11:00 04/29/25 11:13 Pantoprazole Inj 40 Mg Vial IVP 05/29/25 10:59 40 mg BID [facility] Administration Plan 64-year-old female with history of hypertension and type 2 diabetes mellitus who presented with x1 week of chest pain associated w/ epigastric pain, melena, dysuria, frequency. Admitted for management of possible ACS vs demand ischemia + UTI. #Demand Ischemia #Melena Hemodynamically stable. ASCVD shows 10.1% 10 year risk of cardiovascular incident. HAS-BLED score 1, 3.4% risk of major bleed. Admission troponins of 0.126 continue downtrending. Hgb 10.7 today, baseline ~11. Admit EKG showed sinus rhythm with RBBB w/o ST segment elevation or depression. Patient reports that she has had this chest pain before and is relieved with water. Given unremarkable EKG, most likely etiology of chest pain in setting of melena is Demand Ischemia/NSTEMI Type II 2/2 possible occult GI bleed. ACS/NSTEMI Type I cannot be ruled out d/t HTN and T2DM comorbidities as per Cardio. Per pt has had melena intermittently x4 months following cholecystecomy procedure. Reports ongoing fatigue and lightheadedness which has worsened recently. - Cardiology consulted, appreciate recommendations - Pending GI consult to investigate melena, determine necessity of scope procedure. - Lipids significant for low cholesterol and low HDL, LDL WNL. - Cont Atorvastatin 80mg PO - DC ASA - IV Protonix 40 IV BID - CBC and CMP in the AM - Keep K>4 and Mg>2 at all times #UTI Pt continues to endorse dysuria/frequency over last week. - Cont IV Rocephin 1g (04/28-) #HTN Stable, controlled. - Pt became briefly hypertensive last night as per HPI, thought to be 2/2 to chest/epigastric pain as BP normalized w/ [place] administration. - Per cardio no antihypertensives are indicated at this time. - Monitor vitals #T2DM A1c 04/28/25 10.8% - SSI - Accuchecks #Hyperthyroidism 04/29/25 TSH low at 0.01. FT4 WNL. Most likely subclinical. - Monitor for now, FU w/ PCP as outpt. Hospital management: Disposition: Pending EGD, Cardio recs Fluids: D5LR Diet: NPO Lines: PIV DVT prophylaxis: SCDs GI prophylaxis: IV Protonix 40mg CODE STATUS: full code ----- Plan discussed with attending physician Dr. Young and senior resident Dr. Sophie Brown, Medical Student [employer] Attending Provider Attestation/Addendum I attest that I was physically present for the evaluation, physical examination, lab and imaging review of the patient with the residents. I discussed the case with the residents and agree with the findings and plans of care as documented above. Patient seen and examined at bedside this morning. Appears comfortable. States that her pain has been improving and is now mostly located around epigastrium. States that she has been having melena for 4 months. Lab results show hemoglobin WBC. Hemoglobin remains stable at 10.7. Hemoglobin A1c is 10.8. Troponin peaked at 0.126. TSH was 0.01 but free T4 level within normal limit at 1.49. Started patient on Protonix, holding heparin and aspirin. Started Maalox for epigastric pain. We will continue with gentle IV hydration and await GI recommendations. Randi Young MD
[2025-04-29] MEDS: cefTRIAXone/D5w 1gm IV premix 1 GM/50 ML BAG IV (13:19)
--- NOTE | 2025-04-29 13:51 | PD.RESPRO ---
Documentation for date of: 04/29/25 Subjective Subjective Interval history: Patient seen and examined at bedside. Telemetry reviewed no arrhythmias noted, sinus rhythm with heart rate average 70s HR max 108. Patient is feeling better today as abdominal pain and chest pain have improved, rates current chest and abdominal pain a 3 out of 10 still radiating to the back. States she had a fever last night with continued abdominal pain. No new complaints, denies chest pain, chest pressure, or shortness of breath. Has not had a bowel movement since admission. WBC decreased from 11-9.3, hemoglobin stable low at 10.7, sodium 135, potassium 4.0, creatinine 1.2 (at baseline of 1.0-1.3), A1c 10.8, troponins eventually down trended 0.126-> 0.116-> 0.084, TSH 0.01, free t4 1.49 Exam Vital Signs Temp Pulse Resp BP Pulse Ox O2 Del Method 97.2 F 79 19 123/66 99 Room Air 04/29/25 12:00 04/29/25 12:00 04/29/25 12:00 04/29/25 12:00 04/29/25 12:00 04/29/25 12:00 Narrative Exam GENERAL: AOx3, no acute distress HEENT: NC/AT, mucous membranes dry, bilateral sclera anicteric CARDIOVASCULAR: regular rate and rhythm, S1/S2 present, no murmurs appreciated PULMONARY: clear to auscultation bilaterally, no rales/rhonchi/wheezes ABDOMINAL: soft, non-distended, no rebound/guarding, bowel sounds present, mild epigastric tenderness on palpation, mild right lower quadrant tenderness on palpation EXTREMITIES: no peripheral edema SKIN: warm and dry, intact, no rashes NEURO: CN II-XII grossly intact, no focal deficits, alert, following commands Objective Labs 04/29/25 06:48 04/29/25 06:48 Labs: Laboratory Results - last 24 hr 04/28/25 04/28/25 04/28/25 15:51 15:59 19:06 WBC 11.6 H RBC 4.01 Hgb 10.8 L Hct 33.4 L MCV 83 MCH 26.9 MCHC 32.3 RDW Std Deviation 39.6 Plt Count 317 D Neut % (Auto) 81 H Lymph % (Auto) 9 L [place] % (Auto) 10 Eos % (Auto) 0 Baso % (Auto) 0 Neut # (Auto) 9.4 H Lymph # (Auto) 1.1 [place] # (Auto) 1.1 H Eos # (Auto) 0.0 Baso # (Auto) 0.0 Immature Gran # (Auto) 0.04 H Absolute Nucleated RBC 0.00 Immature Gran % 0 Nucleated RBC % 0 PT 10.9 INR 1.0 APTT 26.6 Sodium 135 L Potassium 4.4 Chloride 100 Carbon Dioxide 26.9 Anion Gap 8 BUN 14 Creatinine 1.1 Estim Creat Clear Calc 56.8 L eGFR 56 L BUN/Creatinine Ratio [address]ucose [address] Glu mg/dL Hemoglobin A1c Calculated Osmolality 277 Calcium 9.3 Corrected Calcium 9.3 Phosphorus Magnesium 1.6 Total Bilirubin 0.6 AST 20 ALT 11 Alkaline Phosphatase 184 H Troponin I 0.126 H* 0.116 H* B-Natriuretic Peptide 83 Total Protein 6.9 Albumin 4.2 Globulin 2.7 Albumin/Globulin Ratio 1.6 Triglycerides Cholesterol LDL Cholesterol, Calc HDL Cholesterol Cholesterol/HDL Ratio TSH Free T4 Ur Collection Type Clean Catch Urine Color Lt-Yellow Urine Clarity Turbid A Urine pH 7.5 H Ur Specific [place] 1.015 Urine Protein 1+ A Urine Glucose (UA) Negative Urine Ketones Negative Urine Blood Negative Urine Nitrite Negative Urine Bilirubin Negative Urine Urobilinogen (Auto) Negative Ur Leukocyte Esterase Positive Urine RBC 4 H Urine WBC 21 H Ur Squamous Epith Cells 9 H Urine Bacteria Rare Ur Culture Indicated? Yes Urine Opiates Screen Negative Urine Fentanyl Screen Negative Ur Barbiturates Screen Negative U Amphetamin/Meth Scrn Negative U Benzodiazepines Scrn Negative U Cocaine Metab Screen Negative U Marijuana (THC) Screen Negative 04/29/25 04/29/25 01:05 06:48 WBC 9.3 RBC 3.93 L Hgb 10.7 L Hct 32.5 L MCV 83 MCH 27.2 MCHC 32.9 RDW Std Deviation 39.0 Plt Count 310 Neut % (Auto) 65 Lymph % (Auto) 23 [place] % (Auto) 11 Eos % (Auto) 0 Baso % (Auto) 0 Neut # (Auto) 6.0 Lymph # (Auto) 2.2 [place] # (Auto) 1.0 H Eos # (Auto) 0.0 Baso # (Auto) 0.0 Immature Gran # (Auto) 0.04 H Absolute Nucleated RBC 0.00 Immature Gran % 0 Nucleated RBC % 0 PT INR APTT Cancelled Sodium 135 L Potassium 4.0 Chloride 101 Carbon Dioxide 27.9 Anion Gap 6 L BUN 18 Creatinine 1.2 Estim Creat Clear Calc 52.0 L eGFR 50 L BUN/Creatinine Ratio [address] Glu mg/dL 263 H Hemoglobin A1c 10.8 H Calculated Osmolality 278 Calcium 9.1 Corrected Calcium Phosphorus 4.9 Magnesium 1.9 Total Bilirubin AST ALT Alkaline Phosphatase Troponin I 0.084 H* Cancelled B-Natriuretic Peptide Total Protein Albumin Globulin Albumin/Globulin Ratio Triglycerides 106 Cholesterol 130 L LDL Cholesterol, Calc 78 HDL Cholesterol 31 L Cholesterol/HDL Ratio 4.2 TSH 0.01 L* Free T4 1.49 Ur Collection Type Urine Color Urine Clarity Urine pH Ur Specific [place] Urine Protein Urine Glucose (UA) Urine Ketones Urine Blood Urine Nitrite Urine Bilirubin Urine Urobilinogen (Auto) Ur Leukocyte Esterase Urine RBC Urine WBC Ur Squamous Epith Cells Urine Bacteria Ur Culture Indicated? Urine Opiates Screen Urine Fentanyl Screen Ur Barbiturates Screen U Amphetamin/Meth Scrn U Benzodiazepines Scrn U Cocaine Metab Screen U Marijuana (THC) Screen Quality Measures Quality Measures VTE prophylaxis Advance care planning discussed with:: patient Assessment & Plan Assessment Current Active Medications: Generic Name Dose Route Start Last Admin Trade Name Freq PRN Reason Stop Dose Admin Acetaminophen 650 mg 04/28/25 18:25 04/29/25 00:31 Acetaminophen 325 Mg Tablet PO 05/28/25 18:24 650 mg Q6H PRN Administration PAIN OR FEVER > 100.4 Hydrocodone Bitart/Acetaminophen 1 tab 04/28/25 18:25 04/29/25 09:24 Hydrocodone/Apap 5/325 Tablet PO 05/03/25 18:24 1 tab Q6HR PRN Administration PAIN SCALE 4-10(Mod-Sev Al Hydrox/Mg Hydrox/Simethicone 15 ml 04/29/25 12:00 04/29/25 11:13 Mg Hyd/Al Hyd/Cesar (Maalox Reg) Susp 30 Ml Udc PO 05/29/25 11:59 15 ml QID CARLITOS Administration Aspirin 81 mg 04/29/25 09:00 04/29/25 09:18 Aspirin Ec 81 Mg Tabec PO 05/29/25 08:59 81 mg On Hold: 04/29/25 10:53 QDAY CARLITOS Administration Atorvastatin Calcium 80 mg 04/28/25 21:00 04/28/25 21:33 Atorvastatin Calcium 20 Mg Tablet PO 05/28/25 20:59 80 mg HS CARLITOS Administration Dextrose 25 ml 04/28/25 18:39 Dextrose 50%-Water Inj 50 Ml Syringe IV 05/28/25 18:38 Q15MIN PRN BG 50-70 responsive npo pt Dextrose 50 ml 04/28/25 18:39 Dextrose 50%-Water Inj 50 Ml Syringe IV 05/28/25 18:38 Q15MIN PRN BG <50 OR BG <70 & pt unresponsive Glucagon 1 mg 04/28/25 18:39 Glucagon Inj 1 Mg Vial IM Q15MIN PRN BG <70, and no IV access Heparin Sodium/Dextrose 25,000 unit in 250 mls @ 10 mls/hr 04/28/25 18:30 04/28/25 21:00 Heparin In D5w Ivpb IV 05/12/25 18:29 0 units/kg/hr On Hold: 04/28/25 22:40 .Q24H CARLITOS 0 mls/hr Protocol Titration 11.917 UNITS/KG/HR Ceftriaxone Sodium/Dextrose 1 gm in 50 mls @ 100 mls/hr 04/28/25 19:07 04/29/25 13:19 Rocephin/D5w 1gm Iv Premix IV 05/05/25 19:06 100 mls/hr QDAY@1400 CARLITOS Administration Insulin Human Lispro 0 unit 04/29/25 12:00 04/29/25 12:00 Insulin Lispro (Admelog) 1 Unit/0.01 Ml Unit SC 05/29/25 11:59 Not Given Q6HR [facility] Protocol Labetalol HCl 10 mg 04/28/25 20:29 Labetalol Inj 5 Mg/Ml Vial 20 Ml IVP 05/28/25 20:28 Q15M PRN Hypertension Ondansetron HCl 4 mg 04/28/25 18:25 Ondansetron Inj 2 Mg/Ml Inj 2 Ml IVP 05/28/25 18:24 Q6H PRN NAUSEA OR VOMITING Protocol Pantoprazole Sodium 40 mg 04/29/25 11:00 04/29/25 11:13 Pantoprazole Inj 40 Mg Vial IVP 05/29/25 10:59 40 mg BID CARLITOS Administration Plan Jennifer Mims 64F pmhx of IDDM2, HTN, HLD, and GERD who presents to [facility] ED on 04/28 with 1 week of chest pain, abdominal pain, dysuria and melena. Cardiology consulted for management workup for NSTEMI. #NSTEMI likely type II #Melena vs #UTI Patient presented with chest pain with associated abdominal pain, dysuria and melena. Admission troponins of 0.126 eventually down trended to 0.116 and Hgb 10.4 baseline ~11. EKG showing sinus rhythm with right bundle branch block with a rate of [address] segment elevation or depression. Patient reports that she has had this chest pain before and is relieved with water. Ddx includes demand ischemia secondary to acute blood loss from gastric ulcers leading to melena versus demand ischemia secondary to urinary tract infection. Type I NSTEMI not completely ruled out due to patient's numerous comorbidities such as HTN and IDDM2 as well as heavy aortic calcification seen on CT abdomen pelvis in 12/2024. Plan: - F/u echocardiogram - Recommend GI consultation to evaluate melena and discontinue heparin drip and ASA iso melena - Abx for UTI per primary team - CTM CBC and CMP - Telemetry for further cardiac monitoring - Keep K>4 and Mg>2 at all times #HTN Patient reports being on antihypertensive however does not know the name, per chart review lisinopril 10 mg daily. BP on admission 111/64 Plan: - Antihypertensives not indicated at this time - CTM BP #IDDM2 #HLD Per chart review, patient has diabetes and was recently prescribed insulin. A1c 10.8 Trig 106, choelsterol 130, LDL 78, HDL 31. Plan: - SSI - Management per primary team #Bilateral thyromegaly including 17 mm nodule right lobe of the thyroid near the isthmus #Right lobe liver 10 mm focal area of enhancement Chronic medical conditions nonpertinent to the following presentation Plan: - Management per primary team Thank you for the consultation and allowing participation in patient care Plan of care discussed with attending Dr. Vasquez. Rose Carey, DO PGY-1 Internal Medicine Attending Provider Attestation/Addendum I have personally seen and examined the patient separately on the above date of service and discussed the plan of care with the resident. I reviewed the resident Dr. Rose Carey consultation progress note and agree with the resident findings and plan in the note above and have also edited the documentation to reflect my findings and plan. Yury Vasquez M.D. Interventional Cardiology
[2025-04-29] MEDS: DEXTROSE 5%-LACTATED RINGERS 1,000 ML 100 ML IV (16:00)
[2025-04-29] MEDS: LABETALOL INJ 5 MG/ML VIAL 20 ML 10 MG IVP (16:48)
--- NOTE | 2025-04-29 17:28 | PD.RESCONSUL ---
HPI Data of Consult Requesting Physician: Randi Young MD Admitting Provider: Rachel Solis MD Attending Provider: Randi Young MD Primary Care Provider: Yovany Garcia MD Consult Narrative Reason for consult: Melena History of present illness: 64-year-old female with a history of type 2 diabetes mellitus, hypertension, hyperlipidemia, and GERD who presented with 1 week of chest pain, dysuria, urinary frequency, and black tarry stools. Chest pain is left-sided, radiating to the back/epigastrium, worsened with deep inspiration, improved by drinking water and leaning forward. She also endorses epigastric abdominal pain, nausea, fatigue, subjective fevers/chills, and lightheadedness. Of note, patient reports melena intermittently for 4 months following a cholecystectomy (two-step procedure 8 and 4 months ago). She has not undergone prior EGD or colonoscopy. She is scheduled for colonoscopy in June. She has had prior ED visits for abdominal pain and dark stools but no GI follow-up. She denies hematemesis, hematochezia, vomiting, alcohol, tobacco, or NSAID use. Denies prior history of cirrhosis, varices, or GI malignancy. Family history negative for GI cancers. ROS: Negative unless stated above cc:: cc: Randi Young MD Exam Vital Signs Temp Pulse Resp BP Pulse Ox O2 Del Method 98.3 F 90 20 162/82 H 99 Room Air 04/29/25 16:00 04/29/25 16:48 04/29/25 16:00 04/29/25 16:48 04/29/25 16:00 04/29/25 16:00 Narrative Exam General: AOx3, no acute distress. CV: Regular rate/rhythm, S1/S2, no murmurs. Pulm: Clear to auscultation bilaterally. Abdomen: Soft, nondistended, normoactive bowel sounds, tenderness over epigastrium, no rebound/guarding. Extremities: Trace edema, no cyanosis. Neuro: No focal deficits. Results Labs 04/29/25 06:48 04/29/25 06:48 Labs: Short CBC 04/29/25 Range/Units 06:48 WBC 9.3 (3.6-11.0) Thou/mm3 Hgb 10.7 L (12.0-16.0) g/dL Hct 32.5 L (36.0-46.0) % Plt Count 310 (140-440) Thou/mm3 [facility] 04/29/25 06:48 Sodium 135 L Potassium 4.0 Chloride 101 Carbon Dioxide 27.9 BUN 18 Creatinine 1.2 Glucose 204 H Calcium 9.1 Cardiac Enzymes 04/28/25 04/29/25 04/29/25 Range/Units 19:06 01:05 06:48 Troponin I 0.116 H* 0.084 H* Cancelled (0.0-0.045) ng/mL Quality Measures Quality Measures VTE prophylaxis Advance care planning discussed with:: patient Medications Home Medications and Allergies Home Medications ?Medication ?Instructions ?Recorded ?Confirmed ?Type atorvastatin 20 mg tablet 20 mg PO QDAY 04/29/25 04/29/25 History ferrous sulfate 325 mg (65 mg 325 mg PO Q OTHER DAY 04/29/25 04/29/25 History iron) tablet (FeroSul) glipizide 10 mg tablet 10 mg PO BID 04/29/25 04/29/25 History lisinopril 5 mg tablet 5 mg PO QDAY 04/29/25 04/29/25 History metformin 1,000 mg tablet 1,000 mg PO BID 04/29/25 04/29/25 History nitrofurantoin 100 mg PO Q12H 04/29/25 04/29/25 History monohydrate/macrocrystals 100 mg capsule (Macrobid) ondansetron 4 mg disintegrating 4 mg PO Q12H 04/29/25 04/29/25 History tablet promethazine 25 mg tablet 25 mg PO Q8HR 04/29/25 04/29/25 History sitagliptin phosphate 100 mg 100 mg PO QDAY 04/29/25 04/29/25 History tablet (Januvia) sucralfate 1 gram tablet 1 g PO BID 04/29/25 04/29/25 History Allergies Allergy/AdvReac Type Severity Reaction Status Date / Time No Known Allergies Allergy Verified 04/28/25 15:32 Visit Medications Acetaminophen (Acetaminophen 325 Mg Tablet) 650 mg PO Q6H PRN PRN Reason: PAIN OR FEVER > 100.4 Stop: 05/28/25 18:24 Last Admin: 04/29/25 00:31 Dose: 650 mg Hydrocodone Bitart/Acetaminophen (Hydrocodone/Apap 5/325 Tablet) 1 tab PO Q6HR PRN PRN Reason: PAIN SCALE 4-10(Mod-Sev Stop: 05/03/25 18:24 Last Admin: 04/29/25 09:24 Dose: 1 tab Al Hydrox/Mg Hydrox/Simethicone (Mg Hyd/Al Hyd/Cesar (Maalox Reg) Susp 30 Ml Udc) 15 ml PO QID [facility] Stop: 05/29/25 11:59 Last Admin: 04/29/25 16:00 Dose: 15 ml Aspirin (Aspirin Ec 81 Mg Tabec) 81 mg PO QDAY [facility] On Hold: 04/29/25 10:53 Stop: 05/29/25 08:59 Last Admin: 04/29/25 09:18 Dose: 81 mg Atorvastatin Calcium (Atorvastatin Calcium 20 Mg Tablet) 80 mg PO HS [facility] Stop: 05/28/25 20:59 Last Admin: 04/28/25 21:33 Dose: 80 mg Dextrose (Dextrose 50%-Water Inj 50 Ml Syringe) 25 ml IV Q15MIN PRN PRN Reason: BG 50-70 responsive npo pt Stop: 05/28/25 18:38 Dextrose (Dextrose 50%-Water Inj 50 Ml Syringe) 50 ml IV Q15MIN PRN PRN Reason: BG <50 OR BG <70 & pt unresponsive Stop: 05/28/25 18:38 Glucagon (Glucagon Inj 1 Mg Vial) 1 mg IM Q15MIN PRN PRN Reason: BG <70, and no IV access Heparin Sodium/Dextrose (Heparin In D5w Ivpb) 25,000 unit in 250 mls @ 10 mls/hr IV .Q24H [facility]; Protocol On Hold: 04/28/25 22:40 Stop: 05/12/25 18:29 Last Titration: 04/28/25 21:00 Dose: 0 units/kg/hr, 0 mls/hr Ceftriaxone Sodium/Dextrose (Rocephin/D5w 1gm Iv Premix) 1 gm in 50 mls @ 100 mls/hr IV QDAY@1400 [facility] Stop: 05/05/25 19:06 Last Admin: 04/29/25 13:19 Dose: 100 mls/hr Dextrose/Lactated Ringer's (D5-Lr) 1,000 mls @ 100 mls/hr IV .Q10H [facility] Stop: 05/29/25 15:59 Last Admin: 04/29/25 16:00 Dose: 100 mls/hr Insulin Human Lispro (Insulin Lispro (Admelog) 1 Unit/0.01 Ml Unit) 0 unit SC Q6HR [facility]; Protocol Stop: 05/29/25 11:59 Last Admin: 04/29/25 12:00 Dose: Not Given Labetalol HCl (Labetalol Inj 5 Mg/Ml Vial 20 Ml) 10 mg IVP Q15M PRN PRN Reason: Hypertension Stop: 05/28/25 20:28 Last Admin: 04/29/25 16:48 Dose: 10 mg Ondansetron HCl (Ondansetron Inj 2 Mg/Ml Inj 2 Ml) 4 mg IVP Q6H PRN; Protocol PRN Reason: NAUSEA OR VOMITING Stop: 05/28/25 18:24 Pantoprazole Sodium (Pantoprazole Inj 40 Mg Vial) 40 mg IVP BID [facility] Stop: 05/29/25 10:59 Last Admin: 04/29/25 11:13 Dose: 40 mg Discontinued Medications Aspirin (Aspirin 325 Mg Tablet) 325 mg PO X1 ONE Stop: 04/28/25 18:26 Last Admin: 04/28/25 18:55 Dose: 325 mg Heparin Sodium (Porcine) (Heparin Sod Inj 5000 Unit/Ml Vial) 4,000 unit IV X1 ONE; Protocol Stop: 04/28/25 18:26 Last Admin: 04/28/25 18:55 Dose: 4,000 unit Insulin Human Lispro (Insulin Lispro (Admelog) 1 Unit/0.01 Ml Unit) 0 unit SC AC [facility]; Protocol Stop: 05/29/25 07:29 Insulin Human Lispro (Insulin Lispro (Admelog) 1 Unit/0.01 Ml Unit) 0 unit SC Q6HR [facility]; Protocol Stop: 05/29/25 11:59 Labetalol HCl (Labetalol Inj 5 Mg/Ml Vial 20 Ml) 10 mg IVP X1 ONE Stop: 04/28/25 19:05 Last Admin: 04/28/25 19:41 Dose: Not Given Assessment & Plan Plan 64F with T2DM, HTN, HLD, GERD admitted for chest pain, UTI, and melena with down-trending troponins and stable Hgb 10.7. Presentation most consistent with NSTEMI type II from occult GI bleed vs ACS. Scheduled for EGD today. # Melena Ongoing intermittent black tarry stools x4 months post-cholecystectomy, now with fatigue/lightheadedness and Hgb stable 10.7 (baseline ~11). Likely upper GI source (PUD, gastritis, AVM, less likely malignancy). No variceal history, low suspicion for portal HTN. Plan: Keep NPO for EGD today. Continue IV PPI EGD scheduled today for diagnostic and possible therapeutic intervention. Monitor hemodynamic status closely william-procedure. Trend CBC, transfuse PRN if Hgb <7 or symptomatic. Hold heparin/ASA until after scope results and discussion with Cardiology. Other problems (cardiac, UTI, DM2, HTN, thyroid) --> as per primary/cardiology, unchanged. ----- Plan discussed with attending physician Dr. Dariusz Maurer MD PGY-1 Internal Medicine Attending Provider Attestation/Addendum Patient personally examined by me Laboratory studies reviewed and imaging studies reviewed I completely agree with the assessment done by my internal medicine resident We will proceed with initially fiberoptic esophagogastroduodenoscopy with possible biopsy possible therapeutic intervention under intravenous moderate sedation If negative we will consider doing a fiberoptic colonoscopy after GoLytely prep Thank you very much for the opportunity to participate in care of this patient
[2025-04-29] MEDS: hydrALAZINE INJ 20 MG/ML VIAL 10 MG IVP (19:55)
--- NOTE | 2025-04-29 19:56 | SUR.PHASEI ---
Pt. arrived to recovery via gurney, eyes closed, responds to verbal commands, VSS, no c/o pain or nausea at this time, pt. allowed to sleep, report received from Beena BECK.
--- NOTE | 2025-04-29 20:22 | SUR.PHASEI ---
Pt. transferred to room 276 via [facility], VSS, no c/o pain or nausea at this time. Netta BECK assumed care of pt.
[2025-04-29] MEDS: NA SU/NAHCO3/KC/PEG (Golytely) 4,000 ML BTL 4000 ML PO (20:58)
[2025-04-29] MEDS: ATORVASTATIN CALCIUM 20 MG TABLET 80 MG PO (20:58)
[2025-04-30] VITALS (22 sets, daily range): BP systolic 110–178; BP diastolic 57–91; PULSE 69–85; RESP 10–97; TEMP 36.3–37.6; O2SAT 93–100; BMI 27.5; BMI 27.6
[2025-04-30] MEDS: ACETAMINOPHEN 325 MG TABLET 650 MG PO (00:29)
[2025-04-30] MEDS: DEXTROSE 5%-LACTATED RINGERS 1,000 ML 100 ML IV (05:18)
[2025-04-30] MEDS: MG HYD/AL HYD/SIME (Maalox Reg) SUSP 30 ML UDC 15 ML PO ×4 (05:18→20:24)
[2025-04-30 05:44] LABS: Basophils # (Auto) 0.0 Thou/mm3 (0.0-0.2); Basophils % (Auto) 0 % (0-2.5); Eosinophils # (Auto) 0.0 Thou/mm3 (0.0-0.5); Eosinophils % (Auto) 0 % (0-10); Hematocrit 32.7 % (36.0-46.0); Hemoglobin 10.6 g/dL (12.0-16.0); Immature Granulocytes Auto 0.03 Thou/mm3 (0.00-0.00); Lymphocytes # (Auto) 2.8 Thou/mm3 (1.0-4.8); Lymphocytes % (Auto) 28 % (10-50); Mean Corpuscular HGB Conc 32.4 g/dl (31.0-37.0); Mean Corpuscular Hemoglobin 27.2 pg (25.0-35.0); Mean Corpuscular Volume 84 fL (80-100); Monocytes # (Auto) 1.5 Thou/mm3 (0.0-0.8); Monocytes % (Auto) 16 % (0-12); Neutrophils # (Auto) 5.4 Thou/mm3 (1.8-7.7); Neutrophils % (Auto) 55 % (37-80); Nucleated Red Blood Cell # 0.00 Thou/mm3 (0.00-0.00); Nucleated Red Blood Cell % 0 /100 WBC (0); Platelet Count 312 Thou/mm3 (140-440); RDW Standard Deviation 39.2 fL (36.4-46.3); Red Blood Count 3.90 Miln/mm3 (4.00-5.20); White Blood Count 9.7 Thou/mm3 (3.6-11.0)
[2025-04-30 05:58] LABS: INR 1.0 (0.9-1.3); Partial Thromboplastin Time 29.1 Seconds (22.0-36.0); Prothrombin Time 10.9 Seconds (9.0-12.2)
[2025-04-30 06:05] LABS: Anion Gap 9 (7-16); BUN/Creatinine Ratio 15 Ratio (12-20); Blood Urea Nitrogen 16 mg/dL (9-23); Calcium 9.5 mg/dL (8.3-10.6); Carbon Dioxide 26.9 mMol/L (20.0-31.0); Chloride 100 mMol/L (98-107); Creatinine (Component) 1.1 mg/dL (0.6-1.3); Estimated Creatinine Clearance 56.8 mL/min (>60); Glucose 215 mg/dL (74-106); Osmolality,Calculated 279 (275-295); Potassium 3.8 mMol/L (3.4-5.1); Sodium 136 mMol/L (136-145); eGFR 56 See Note
[2025-04-30] MEDS: HYDROcodone/APAP 5/325 TABLET 1 TAB PO (08:25)
[2025-04-30 10:12] LABS: Magnesium 2.0 mg/dL (1.6-2.6)
--- NOTE | 2025-04-30 10:24 | PC.SS ---
Update: Patient receiving IV antibiotics. Colonoscopy is pending
--- NOTE | 2025-04-30 11:26 | ESPR_ITS ---
<Statement entered by Geo Barrios MD - 04/30/25 20:32> Note reviewed and agree with care plan as documented. Please refer to the note below for further details. Plan discussed with attending physician Dr. Hannah Barrios MD PGY-2 Internal Medicine Documentation for date of: 04/30/25 Subjective Subjective Interval history: Pt required x1 Labetolol and x1 Hydralazine for elevated SBP yesterday, otherwise no overnight events. No acute concerns today. Telemetry showed sinus to sinus tach with a spike to 132 @ 0530. She reports improving chest pain and epigastric pain, both 6/10 this morning, as well as chills. Otherwise denies fever, lightheadedness, fatigue. She is s/p x1 day EGD w/ Dr. Arzola. ROS: Negative unless stated above Exam Vital Signs Temp Pulse Resp BP Pulse Ox O2 Del Method O2 Flow Rate 97.3 F 78 10 L 159/79 H 99 Room Air 2 04/30/25 08:00 04/30/25 08:00 04/30/25 08:00 04/30/25 08:00 04/30/25 08:00 04/30/25 08:00 04/30/25 08:00 Narrative Exam General: AOx3, no acute distress, able to speak full sentences HEENT: NC/AT, mucous membranes moist, bilateral sclera anicteric Cardiovascular: regular rate and rhythm, S1/S2 present, no murmurs appreciated Pulmonary: clear to auscultation bilaterally, no rales/rhonchi/wheezes Abdominal: soft, 6/10 epigastric TTP, non-distended, no rebound/guarding, normal bowel sounds present Musculoskeletal: normal ROM, trace b/l LE pitting edema Skin: warm and dry, intact, no rashes Neuro: CN II-XII intact, no focal deficits Objective Labs 04/30/25 05:05 04/30/25 05:05 Labs: Laboratory Results - last 24 hr 04/29/25 04/30/25 06:48 05:05 WBC 9.7 RBC 3.90 L Hgb 10.6 L Hct 32.7 L MCV 84 MCH 27.2 MCHC 32.4 RDW Std Deviation 39.2 Plt Count 312 Neut % (Auto) 55 Lymph % (Auto) 28 Hendricks % (Auto) 16 H Eos % (Auto) 0 Baso % (Auto) 0 Neut # (Auto) 5.4 Lymph # (Auto) 2.8 Hendricks # (Auto) 1.5 H Eos # (Auto) 0.0 Baso # (Auto) 0.0 Immature Gran # (Auto) 0.03 H Absolute Nucleated RBC 0.00 Immature Gran % 0 Nucleated RBC % 0 PT 10.9 INR 1.0 APTT 29.1 Sodium 136 Potassium 3.8 Chloride 100 Carbon Dioxide 26.9 Anion Gap 9 BUN 16 Creatinine 1.1 Estim Creat Clear Calc 56.8 L eGFR 56 L BUN/Creatinine Ratio 15 Glucose 215 H Calculated Osmolality 279 Calcium 9.5 Magnesium 2.0 Free T4 1.49 Quality Measures Quality Measures VTE prophylaxis Advance care planning discussed with:: patient Assessment & Plan Assessment Current Active Medications: Generic Name Dose Route Start Last Admin Trade Name Freq PRN Reason Stop Dose Admin Acetaminophen 650 mg 04/28/25 18:25 04/30/25 00:29 Acetaminophen 325 Mg Tablet PO 05/28/25 18:24 650 mg Q6H PRN Administration PAIN OR FEVER > 100.4 Hydrocodone Bitart/Acetaminophen 1 tab 04/28/25 18:25 04/30/25 08:25 Hydrocodone/Apap 5/325 Tablet PO 05/03/25 18:24 1 tab Q6HR PRN Administration PAIN SCALE 4-10(Mod-Sev Al Hydrox/Mg Hydrox/Simethicone 15 ml 04/29/25 12:00 04/30/25 05:18 Mg Hyd/Al Hyd/Cesar (Maalox Reg) Susp 30 Ml Udc PO 05/29/25 11:59 15 ml QID [facility] Administration Aspirin 81 mg 04/29/25 09:00 04/29/25 09:18 Aspirin Ec 81 Mg Tabec PO 05/29/25 08:59 81 mg On Hold: 04/29/25 10:53 QDAY [facility] Administration Atorvastatin Calcium 80 mg 04/28/25 21:00 04/29/25 20:58 Atorvastatin Calcium 20 Mg Tablet PO 05/28/25 20:59 80 mg HS [facility] Administration Dextrose 50 ml 04/28/25 18:39 Dextrose 50%-Water Inj 50 Ml Syringe IV 05/28/25 18:38 Q15MIN PRN BG <50 OR BG <70 & pt unresponsive Glucagon 1 mg 04/28/25 18:39 Glucagon Inj 1 Mg Vial IM Q15MIN PRN BG <70, and no IV access Heparin Sodium/Dextrose 25,000 unit in 250 mls @ 10 mls/hr 04/28/25 18:30 04/28/25 21:00 Heparin In D5w Ivpb IV 05/12/25 18:29 0 units/kg/hr On Hold: 04/28/25 22:40 .Q24H [facility] 0 mls/hr Protocol Titration 11.917 UNITS/KG/HR Ceftriaxone Sodium/Dextrose 1 gm in 50 mls @ 100 mls/hr 04/28/25 19:07 04/29/25 13:19 Rocephin/D5w 1gm Iv Premix IV 05/05/25 19:06 100 mls/hr QDAY@1400 [facility] Administration Dextrose/Lactated Ringer's 1,000 mls @ 100 mls/hr 04/29/25 16:00 04/30/25 05:18 D5-Lr IV 05/29/25 15:59 100 mls/hr .Q10H [facility] Administration Insulin Human Lispro 0 unit 04/30/25 08:07 Insulin Lispro (Admelog) 1 Unit/0.01 Ml Unit SC 05/29/25 11:59 Q6HR [facility] Protocol Labetalol HCl 10 mg 04/30/25 11:22 Labetalol Inj 5 Mg/Ml Vial 20 Ml IVP 05/28/25 20:28 Q4HR PRN Hypertension SBP >160 Losartan Potassium 25 mg 04/30/25 11:30 Losartan Potassium 25 Mg Tablet PO 05/30/25 11:29 QDAY [facility] Ondansetron HCl 4 mg 04/28/25 18:25 Ondansetron Inj 2 Mg/Ml Inj 2 Ml IVP 05/28/25 18:24 Q6H PRN NAUSEA OR VOMITING Protocol Pantoprazole Sodium 40 mg 04/29/25 11:00 04/30/25 08:24 Pantoprazole Inj 40 Mg Vial IVP 05/29/25 10:59 40 mg BID [facility] Administration Additional Assessment: 64-year-old female with a history of type 2 diabetes mellitus, hypertension, hyperlipidemia, and GERD who presented with 1 week of chest pain, dysuria, urinary frequency, and black tarry stools. Of note, patient reports melena intermittently for 4 months following a cholecystectomy (two-step procedure 8 and 4 months ago). She has not undergone prior EGD or colonoscopy. She is scheduled for colonoscopy in June. She has had prior ED visits for abdominal pain and dark stools but no GI follow-up. Plan #Demand Ischemia #Melena Hemodynamically stable. ASCVD shows 10.1% 10 year risk of cardiovascular incident. HAS-BLED score 1, 3.4% risk of major bleed. Admission troponins of 0.126 peaked and downtrend. Hgb 10.6 today, baseline ~11. Given unremarkable EKG, most likely etiology of chest pain in setting of melena is Demand Ischemia/NSTEMI Type II 2/2 possible occult GI bleed. ACS/NSTEMI Type I cannot be ruled out d/t HTN and T2DM comorbidities as per Cardio. Pt received EGD 04/29 which showed gastritis, negative for bleeding/ulcers. - Cardiology consulted, appreciate recommendations - GI consulted, appreciate recommendations. Pt is scheduled for Colonoscopy today given melena w/ unrevealing EGD. - Cont Atorvastatin 80mg PO - IV Protonix 40 IV BID - CBC and CMP in the AM - Keep K>4 and Mg>2 at all times #UTI Pt continues to endorse dysuria/frequency over last week. - Cont IV Rocephin 1g (04/28-) #HTN Stable, relatively poorly controlled. Pt became hypertensive overnight w/o palliation by x1 Labetolol and x1 Hydralazine. Previously BP elevation as inpt thought to be secondary to pain, however pt notes consistently improving pain. Therefore possible there is component of essential HTN. - Begin Losartan 25mg PO - Monitor vitals #T2DM A1c 04/28/25 10.8%. Sugar today elevated likely d/t insulin being held. - SSI - Accuchecks - Given elevated A1c, suspect pt may be medication noncompliant. Will educate pt on diabetes management and complications. #Hyperthyroidism 04/29/25 TSH low at 0.01. FT4 WNL. Most likely subclinical. - Monitor for now, FU w/ PCP as outpt. Hospital management: Disposition: Pending colonoscopy today to guide further management. Diet: Clear Liquid DVT prophylaxis: SCDs GI prophylaxis: IV Protonix 40mg BID CODE STATUS: full code ----- Plan discussed with attending physician Dr. Hannah Brown, Medical Student EMMA Attending Provider Attestation/Addendum I attest that I was physically present for the evaluation, physical examination, lab and imaging review of the patient with the residents. I discussed the case with the residents and agree with the findings and plans of care as documented above. Randi Young MD
[2025-04-30] MEDS: LOSARTAN POTASSIUM 25 MG TABLET PO (11:55)
[2025-04-30] MEDS: VIT B12/Vit C/FA (Nephrovite) TABLET 1 TAB PO (11:55)
[2025-04-30] MEDS: IRON SUCROSE CPLX INJ 20 MG/ML VIAL 5 ML 200 MG IVP (11:56)
[2025-04-30] MEDS: cefTRIAXone/D5w 1gm IV premix 1 GM/50 ML BAG IV (13:02)
--- NOTE | 2025-04-30 13:06 | PD.RESPRO ---
Documentation for date of: 04/30/25 Subjective Subjective Interval history: Patient seen and examined at bedside. Telemetry reviewed showing sinus rhythm rates average 70 to 80s, heart rate max 100. Blood pressure ranges from high 90s to 145 over high 50s to low 70s. Hemoglobin stable low 10.6, potassium 3.8, creatinine 1.1. Patient reports overnight mild 2/10 epigastric pain and no chest pain. Denies chest pressure, palpitations or shortness of breath. Patient is due for colonoscopy today, endoscopy showed gastritis. Consider antihypertensives if blood pressure continues to increase. Exam Vital Signs Temp Pulse Resp BP Pulse Ox O2 Del Method O2 Flow Rate 97.6 F 75 15 158/74 H 99 Room Air 2 04/30/25 11:53 04/30/25 11:55 04/30/25 11:53 04/30/25 11:55 04/30/25 11:53 04/30/25 11:53 04/30/25 08:00 Narrative Exam GENERAL: AOx3, no acute distress HEENT: NC/AT, mucous membranes dry, bilateral sclera anicteric CARDIOVASCULAR: regular rate and rhythm, S1/S2 present, no murmurs appreciated PULMONARY: clear to auscultation bilaterally, no rales/rhonchi/wheezes ABDOMINAL: soft, non-distended, no rebound/guarding, bowel sounds present, mild epigastric tenderness on palpation, mild right lower quadrant tenderness on palpation EXTREMITIES: no peripheral edema SKIN: warm and dry, intact, no rashes NEURO: CN II-XII grossly intact, no focal deficits, alert, following commands Objective Labs 04/30/25 05:05 04/30/25 05:05 Labs: Laboratory Results - last 24 hr 04/30/25 05:05 WBC 9.7 RBC 3.90 L Hgb 10.6 L Hct 32.7 L MCV 84 MCH 27.2 MCHC 32.4 RDW Std Deviation 39.2 Plt Count 312 Neut % (Auto) 55 Lymph % (Auto) 28 [place] % (Auto) 16 H Eos % (Auto) 0 Baso % (Auto) 0 Neut # (Auto) 5.4 Lymph # (Auto) 2.8 [place] # (Auto) 1.5 H Eos # (Auto) 0.0 Baso # (Auto) 0.0 Immature Gran # (Auto) 0.03 H Absolute Nucleated RBC 0.00 Immature Gran % 0 Nucleated RBC % 0 PT 10.9 INR 1.0 APTT 29.1 Sodium 136 Potassium 3.8 Chloride 100 Carbon Dioxide 26.9 Anion Gap 9 BUN 16 Creatinine 1.1 Estim Creat Clear Calc 56.8 L eGFR 56 L BUN/Creatinine Ratio 15 Glucose 215 H Calculated Osmolality 279 Calcium 9.5 Magnesium 2.0 Quality Measures Quality Measures VTE prophylaxis Advance care planning discussed with:: patient Assessment & Plan Assessment Current Active Medications: Generic Name Dose Route Start Last Admin Trade Name Freq PRN Reason Stop Dose Admin Acetaminophen 650 mg 04/28/25 18:25 04/30/25 00:29 Acetaminophen 325 Mg Tablet PO 05/28/25 18:24 650 mg Q6H PRN Administration PAIN OR FEVER > 100.4 Hydrocodone Bitart/Acetaminophen 1 tab 04/28/25 18:25 04/30/25 08:25 Hydrocodone/Apap 5/325 Tablet PO 05/03/25 18:24 1 tab Q6HR PRN Administration PAIN SCALE 4-10(Mod-Sev Al Hydrox/Mg Hydrox/Simethicone 15 ml 04/29/25 12:00 04/30/25 11:55 Mg Hyd/Al Hyd/Cesar (Maalox Reg) Susp 30 Ml Udc PO 05/29/25 11:59 15 ml QID CARLITOS Administration Aspirin 81 mg 04/29/25 09:00 04/29/25 09:18 Aspirin Ec 81 Mg Tabec PO 05/29/25 08:59 81 mg On Hold: 04/29/25 10:53 QDAY CARLITOS Administration Atorvastatin Calcium 80 mg 04/28/25 21:00 04/29/25 20:58 Atorvastatin Calcium 20 Mg Tablet PO 05/28/25 20:59 80 mg HS CARLITOS Administration Dextrose 50 ml 04/28/25 18:39 Dextrose 50%-Water Inj 50 Ml Syringe IV 05/28/25 18:38 Q15MIN PRN BG <50 OR BG <70 & pt unresponsive Glucagon 1 mg 04/28/25 18:39 Glucagon Inj 1 Mg Vial IM Q15MIN PRN BG <70, and no IV access Heparin Sodium/Dextrose 25,000 unit in 250 mls @ 10 mls/hr 04/28/25 18:30 04/28/25 21:00 Heparin In D5w Ivpb IV 05/12/25 18:29 0 units/kg/hr On Hold: 04/28/25 22:40 .Q24H ACRLITOS 0 mls/hr Protocol Titration 11.917 UNITS/KG/HR Ceftriaxone Sodium/Dextrose 1 gm in 50 mls @ 100 mls/hr 04/28/25 19:07 04/30/25 13:02 Rocephin/D5w 1gm Iv Premix IV 05/05/25 19:06 100 mls/hr QDAY@1400 CARLITOS Administration Dextrose/Lactated Ringer's 1,000 mls @ 100 mls/hr 04/29/25 16:00 04/30/25 05:18 D5-Lr IV 05/29/25 15:59 100 mls/hr .Q10H CARLITOS Administration Insulin Human Lispro 0 unit 04/30/25 08:07 04/30/25 12:45 Insulin Lispro (Admelog) 1 Unit/0.01 Ml Unit SC 05/29/25 11:59 Not Given Q6HR CARLITOS Protocol Labetalol HCl 10 mg 04/30/25 11:22 Labetalol Inj 5 Mg/Ml Vial 20 Ml IVP 05/28/25 20:28 Q4HR PRN Hypertension SBP >160 Losartan Potassium 25 mg 04/30/25 11:30 04/30/25 11:55 Losartan Potassium 25 Mg Tablet PO 05/30/25 11:29 25 mg QDAY CARLITOS Administration Ondansetron HCl 4 mg 04/28/25 18:25 Ondansetron Inj 2 Mg/Ml Inj 2 Ml IVP 05/28/25 18:24 Q6H PRN NAUSEA OR VOMITING Protocol Pantoprazole Sodium 40 mg 04/29/25 11:00 04/30/25 08:24 Pantoprazole Inj 40 Mg Vial IVP 05/29/25 10:59 40 mg BID CARLITOS Administration Vitamin B Complex/Vit C/Folic Acid 1 tab 04/30/25 11:30 04/30/25 11:55 Vit B12/Vit C/Fa (Nephrovite) Tablet PO 05/30/25 11:29 1 tab QDAY CARLITOS Administration Plan Jennifer Mims 64F pmhx of IDDM2, HTN, HLD, and GERD who presents to [facility] ED on 04/28 with 1 week of chest pain, abdominal pain, dysuria and melena. Cardiology consulted for management workup for NSTEMI. #NSTEMI likely type II #Melena vs #UTI Patient presented with chest pain with associated abdominal pain, dysuria and melena. Admission troponins of 0.126 eventually down trended to 0.116 and Hgb 10.4 baseline ~11. EKG showing sinus rhythm with right bundle branch block with a rate of [address] segment elevation or depression. Patient reports that she has had this chest pain before and is relieved with water. Ddx includes demand ischemia secondary to acute blood loss from gastric ulcers leading to melena versus demand ischemia secondary to urinary tract infection. Underlying CAD cannot completely ruled out due to patient's numerous comorbidities such as HTN and IDDM2 as well as heavy aortic calcification seen on CT abdomen pelvis in 12/2024. 04/28/25 Echo shows Normal left ventricular size and function. Estimated ejection fraction is 60-65%. Grade I diastolic dysfunction Normal right ventricular size and function. Normal RVSP Mildly dilated LA. Trace mitral and mild tricuspid regurgitation noted. No pericardial effusion. Plan: - Recommend GI consultation to evaluate melena and discontinue heparin drip and ASA iso melena - Abx for UTI per primary team - CTM CBC and CMP - Telemetry for further cardiac monitoring - Keep K>4 and Mg>2 at all times #HTN Patient reports being on antihypertensive however does not know the name, per chart review lisinopril 10 mg daily. BP on admission 111/64 Plan: - Antihypertensives not indicated at this time - CTM BP #IDDM2 #HLD Per chart review, patient has diabetes and was recently prescribed insulin. A1c 10.8 Trig 106, choelsterol 130, LDL 78, HDL 31. Plan: - SSI - Management per primary team #Bilateral thyromegaly including 17 mm nodule right lobe of the thyroid near the isthmus #Right lobe liver 10 mm focal area of enhancement Chronic medical conditions nonpertinent to the following presentation Plan: - Management per primary team Thank you for the consultation and allowing participation in patient care Plan of care discussed with attending Dr. Vasquez. Rose aCrey, DO PGY-1 Internal Medicine Attending Provider Attestation/Addendum I have personally seen and examined the patient separately on the above date of service and discussed the plan of care with the resident. I reviewed the resident Dr. Rose Carey consultation progress note and agree with the resident findings and plan in the note above and have also edited the documentation to reflect my findings and plan. A 64-year-old female with a past medical history of uncontrolled type 2 diabetes mellitus, essential hypertension, hyperlipidemia, GERD came into the emergency department for further evaluation of epigastric pain, left-sided chest pain as well as abdominal pain and generalized body pains. Patient also has been having black stools over the last 1 week. Patient was admitted to the emergency department in the last couple of months for the similar complaint of abdominal pain. There was history of questionable gastric ulcers that was noted in the chart but that could not be confirmed from the patient. Patient continued to have some left-sided chest pain which is she describes as radiating to the back and also to the epigastrium. The pain is reproducible in the epigastric area as well as the right lower quadrant as well as on the chest. She said he is around 4-5/10 in intensity. No previous history of any heart disease. Denies any smoking alcohol or drug abuse. Used to work in the [employer] previously and now is retired. Patient denies any kind of significant family history of any heart disease. EKG showed normal sinus rhythm with right bundle branch block and no other acute ST-T changes suggestive of ischemia. Cardiology was consulted and the initial troponin was 0.126. Patient troponin was 0.126. Patient chest pain appears to be more of atypical rather than typical. Also has some reproducibility at times. Her main complaints appear to be more abdominal at the present point of time and concerning is her melena as well as the UTI. The repeat troponin is at 0.11. Recommend no heparin drip for the present point of time. No aspirin for now until the GI bleed is ruled out as this patient is having melena. Recommend GI workup with EGD and colonoscopy for the same. High intensity statin for now and check cholesterol profile TSH free T4 A1c as well as lipid profile for further cardiac risk stratification. Uncontrolled diabetes and was recently prescribed insulin. A1c 10.8 Trig 106, choelsterol 130, LDL 78, HDL 31. Normal left ventricular size and function. Estimated ejection fraction is 60-65%. No regional wall motion abnormalities. Grade I diastolic dysfunction. Normal right ventricular size and function. Normal RVSP. Mildly dilated LA. Trace mitral and mild tricuspid regurgitation noted. No pericardial effusion. Patient does have risk factors including hypertension, uncontrolled diabetes mellitus, hyperlipidemia along with age and will need further ischemic workup which can all be done as outpatient once the patient work up for melena is complete as well as treatment for the UTI. Management of rest of the medical conditions as per primary team and other consultants. Thank you for the consult and allowing me to participate in the care of the patient. Cardiology will continue to follow. Yury Vasquez M.D. Interventional Cardiology
--- NOTE | 2025-04-30 15:19 | PC.CC ---
Addendum entered and electronically signed by No Boucher RPh 04/30/25 15:20: Approved through 04/30/26. Original Note: Request from ARCELIA Guevara, to obtain PA for Webcrunchyle Rayray 3 Plus sensor and Tubett Rayray 3 Galvin. Submitted via covermymeds.
[2025-04-30] MEDS: LABETALOL INJ 5 MG/ML VIAL 20 ML 10 MG IVP (16:03)
--- NOTE | 2025-04-30 19:23 | SUR.PHASEI ---
pt received to [facility]. vss. breathing even and unlabored. denies pain and nausea. report from nurse pittman.
--- NOTE | 2025-04-30 19:50 | SUR.PHASEI ---
report called to nurse jeaneth. vss. breathing even and unlabored. denies pain and nausea. tolerated po ice chips. transported to room via [facility].
[2025-04-30] MEDS: ATORVASTATIN CALCIUM 20 MG TABLET 80 MG PO (20:24)
[2025-04-30] MEDS: INSULIN LISPRO (AdmeLOG) 1 UNIT/0.01 ML UNIT SC (20:25)
[2025-05-01] VITALS (7 sets, daily range): BP systolic 98–169; BP diastolic 52–79; PULSE 67–87; RESP 14–98; TEMP 36.1–36.8; O2SAT 90–99; BMI 27.2
[2025-05-01] MEDS: MG HYD/AL HYD/SIME (Maalox Reg) SUSP 30 ML UDC 15 ML PO ×2 (05:00→12:15)
[2025-05-01 05:56] LABS: Basophils # (Auto) 0.0 Thou/mm3 (0.0-0.2); Basophils % (Auto) 0 % (0-2.5); Eosinophils # (Auto) 0.2 Thou/mm3 (0.0-0.5); Eosinophils % (Auto) 2 % (0-10); Hematocrit 31.3 % (36.0-46.0); Hemoglobin 10.1 g/dL (12.0-16.0); Immature Granulocytes Auto 0.02 Thou/mm3 (0.00-0.00); Lymphocytes # (Auto) 2.7 Thou/mm3 (1.0-4.8); Lymphocytes % (Auto) 36 % (10-50); Mean Corpuscular HGB Conc 32.3 g/dl (31.0-37.0); Mean Corpuscular Hemoglobin 27.4 pg (25.0-35.0); Mean Corpuscular Volume 85 fL (80-100); Monocytes # (Auto) 1.2 Thou/mm3 (0.0-0.8); Monocytes % (Auto) 16 % (0-12); Neutrophils # (Auto) 3.4 Thou/mm3 (1.8-7.7); Neutrophils % (Auto) 46 % (37-80); Nucleated Red Blood Cell # 0.00 Thou/mm3 (0.00-0.00); Nucleated Red Blood Cell % 0 /100 WBC (0); Platelet Count 296 Thou/mm3 (140-440); RDW Standard Deviation 40.0 fL (36.4-46.3); Red Blood Count 3.69 Miln/mm3 (4.00-5.20); White Blood Count 7.5 Thou/mm3 (3.6-11.0)
[2025-05-01 06:20] LABS: Anion Gap 8 (7-16); BUN/Creatinine Ratio 8 Ratio (12-20); Blood Urea Nitrogen 8 mg/dL (9-23); Calcium 8.9 mg/dL (8.3-10.6); Carbon Dioxide 28.0 mMol/L (20.0-31.0); Chloride 103 mMol/L (98-107); Creatinine (Component) 1.0 mg/dL (0.6-1.3); Estimated Creatinine Clearance 59.4 mL/min (>60); Glucose 201 mg/dL (74-106); Osmolality,Calculated 281 (275-295); Potassium 4.0 mMol/L (3.4-5.1); Sodium 139 mMol/L (136-145); eGFR > 60 See Note
[2025-05-01] MEDS: INSULIN LISPRO (AdmeLOG) 1 UNIT/0.01 ML UNIT SC ×2 (08:04→12:15)
[2025-05-01] MEDS: VIT B12/Vit C/FA (Nephrovite) TABLET 1 TAB PO (08:21)
[2025-05-01] MEDS: LOSARTAN POTASSIUM 25 MG TABLET PO (08:22)
[2025-05-01 08:42] LABS: Magnesium 1.8 mg/dL (1.6-2.6)
[2025-05-01 08:57] LABS: C-Reactive Protein 4.2 mg/dL (0.0-0.9)
[2025-05-01 09:00] LABS: Sed Rate (ESR) 40 mm/hr (0-30)
--- NOTE | 2025-05-01 10:37 | ESDS_ITS ---
<Statement entered by Geo Barrios MD - 05/01/25 13:40> Note reviewed and agree with care plan as documented. Please refer to the note below for further details. Plan discussed with attending physician Geo Barrios MD PGY-2 Internal Medicine Planned Discharge Date 05/01/25 DS: Providers Provider Date of admission: 04/28/25 18:51 Primary care physician: Yovany Garcia MD Admitting Provider: Rachel Solis MD Attending Provider on Admission: Randi Young MD Consults: 04/28/25 17:01 Consult to Cardiology Stat Comment: Consulting Provider: Yury Vasquez 04/28/25 22:23 Health Equity Referral - Nutrition Routine Comment: Positive screening for nutrition needs. Health Equity Referral - Utilities Routine Comment: Positive screening for utility assistance needs. 04/28/25 22:40 Consult to Gastroenterology Routine Comment: R/o GI Bleed, needs heparin ggt for NSTEMI Consulting Provider: Luis Arzola 04/30/25 11:24 Referral Registered Dietitian Routine Comment: Attending Provider on DC: Malena Gorman Discharging Provider: Malena Gorman DS: Diagnosis Problem List Completed Was Problem List Reviewed/Reconciled?: Yes Hospital Course Hospital Course Hospital course: Jennifer Mims is a 64 yo F w/ PMH T2DM, HTN, HLD who presented w/ x1 week of progressively worsening chest pain. On admit reported associated nausea, epigastric pain, dysuria with frequency, as well as a recent episode of chills, sore throat, body aches. She was tachycardic and troponins were mildly elevated above baseline. EKG was unremarkable. Given history and elevated troponins, heparin drip was started and admitted for cardiac workup and followed up on cardiac recommendations. However, upon further history taking patient endorsed approximately 4 months of melena and so heparin drip was stopped and suspect that elevated troponins were secondary to demand ischemia from blood loss. GI was then consulted and patient underwent EGD that did not show evidence of bleeding and colonoscopy that showed diverticulosis without evidence of bleeding, internal hemorrhoids, and >1 cm polyp that was resected. Pt chest pain resolved spontaneously. Melena was thought to be related to hemorrhoids + diverticulitis w/ darker stools due to home iron supplementation. Pt was intemittently hypertensive during inpatient course, was started on Losartan 25mg PO qD in hospital with good effect. Of note, UA was positive for UTI and pt received x3 days IV Rocephin w/ steadily improving dysuria + frequency. At discharge, pt is hemodynamically stable and ambulatory, has not had episode of melena while in hospital, labs comparable to baseline. Discharged with Losartan 25mg POqD, Protonix 40mg POqD, as well as x3 days of Keflex 500 BID PO to complete abx course. She was instructed to FU w/ GI and cardiology as outpatient. Finally she was discharged with basal insulin and metformin with instructions to FU w/ PCP regarding diabetes management. She had home Lisinopril which was discontinued in favor of Losartan as above. Diagnoses during admission: #Demand Ischemia #Melena #UTI #HTN #T2DM #Hyperthyroidism Discharge instructions: ? Follow-up with PCP within 1-2 weeks of discharge and obtain referrals for GI and cardiology ? Please continue Cephalexin for UTI for three more days to complete antibiotic course. ? Follow-up with gastroenterology within 1-2 weeks of discharge. - Continue Protonix 40mg daily for 6 weeks ? Follow-up with Cardiology within 1-2 weeks of discharge. ? Your lisinopril was switched to losartan 25 mg for BP control ? You've been started on insulin Degludec 10 units nightly + Janumet twice a day, for your diabetes. Stop Metformin and Januvia. ? Do not take Victoza and glipizide as high risk of hypoglycemia. ? If you do not have a PCP, you can follow-up at the [facility] (you can call [phone] to make an appointment) ? Return to ED if symptoms worsen or recur ----- Note reviewed and agree with care plan as documented. Please refer to the note below for further details. Plan discussed with attending physician Dr. Hannah Brown Medical student Time Spent with Patient Time attestation: Total time spent providing and/or coordinating discharge services: 38 min Time spent: Greater than 30 minutes Exam Vital Signs Temp Pulse Resp BP Pulse Ox O2 Del Method O2 Flow Rate 97.9 F 67 16 139/68 H 98 Room Air 3 05/01/25 08:00 05/01/25 08:22 05/01/25 08:00 05/01/25 08:22 05/01/25 08:00 05/01/25 08:00 04/30/25 19:15 Narrative Exam General: AOx3, no acute distress, able to speak full sentences HEENT: NC/AT, mucous membranes moist, bilateral sclera anicteric Cardiovascular: regular rate and rhythm, S1/S2 present, no murmurs appreciated Pulmonary: clear to auscultation bilaterally, no rales/rhonchi/wheezes Abdominal: soft, 6/10 epigastric TTP, non-distended, no rebound/guarding, normal bowel sounds present Musculoskeletal: normal ROM, trace b/l LE pitting edema Skin: warm and dry, intact, no rashes Neuro: CN II-XII intact, no focal deficits Discharge Plan Plan Patient Disposition: HOME (Self Care) Patient condition on transfer: Stable Care Plan Goals: ? Follow-up with PCP within 1-2 weeks of discharge and obtain referrals for GI and cardiology ? Please continue Cephalexin for UTI for three more days to complete antibiotic course. ? Follow-up with gastroenterology within 1-2 weeks of discharge. - Continue Protonix 40mg daily for 6 weeks ? Follow-up with Cardiology within 1-2 weeks of discharge. ? Your lisinopril was switched to losartan 25 mg for BP control ? You've been started on insulin Degludec 10 units nightly + Janumet twice a day, for your diabetes. Stop Metformin and Januvia. - Do not take Victoza and glipizide as high risk of hypoglycemia. ? If you do not have a PCP, you can follow-up at the [facility] (you can call [phone] to make an appointment) ? Return to ED if symptoms worsen or recur ? Seguimiento con tyson m?dico de cabecera dentro de 1 a 2 semanas despu?s del elmo y obtenga derivaciones para gastroenterolog?a y cardiolog?a. ? Contin?e con cefalexina para la infecci?n urinaria afshin becky d?as m?s para completar el tratamiento con antibi?ticos. ? Seguimiento con gastroenterolog?a dentro de 1 a 2 semanas despu?s del elmo. ? Contin?e con Protonix 40 mg al d?a afshin 6 semanas. ? Seguimiento con cardiolog?a dentro de 1 a 2 semanas despu?s del elmo. ? Tyson lisinopril se cambi? a losart?n 25 mg para controlar la presi?n arterial. ? Perez comenzado a ivis insulina Degludec 10 unidades por la noche + Janumet dos veces al d?a para tyson diabetes. Suspenda la metformina y Januvia. ? No tome Victoza ni glipizida, ya que existe un alto riesgo de hipoglucemia. ? Si no tiene un m?dico de cabecera, puede realizar un seguimiento en el [facility]?pedro de Sushma (puede llamar al [phone] para programar luci avelina). ? Regrese a urgencias si los s?ntomas empeoran o reaparecen. Prescriptions/Referrals Prescriptions/Med Rec: New (DME) FreeStyle Rayray 3 Plus Sensor Device See Rx Instructions .Route Qty: 1 3RF Rx Instructions: As directed losartan 25 mg Tablet 25 mg PO QDAY 30 Days Qty: 30 0RF cephalexin 500 mg capsule 500 mg PO BID 3 Days Qty: 6 0RF insulin degludec 100 unit/mL (3 mL) insulin pen 10 unit subcut QDAY Qty: 15 0RF (DME) pen needle, diabetic 29 gauge needle See Rx Instructions .Route Qty: 100 0RF Rx Instructions: Utilized to administer insulin at night only (DME) blood-glucose meter Kit See Rx Instructions .ROUTE .MEDSUPPLY Qty: 1 0RF Rx Instructions: Test blood sugars three times daily before meals ICD 10: E11.65 (DME) Blood Glucose Test Strip See Rx Instructions .ROUTE .MEDSUPPLY Qty: 50 0RF Rx Instructions: Test blood sugars three times daily before meals ICD 10: E11.65 (DME) lancets Misc See Rx Instructions .ROUTE .MEDSUPPLY Qty: 100 0RF Rx Instructions: Test blood sugars three times daily before meals ICD 10: E11.65 Janumet 50-500 mg tablet 1 tab PO BID 30 Days Qty: 60 1RF Continued pantoprazole [Protonix] 40 mg tablet,delayed release (DR/EC) 40 mg PO QDAY Qty: 30 0RF atorvastatin 20 mg tablet 20 mg PO QDAY ferrous sulfate [FeroSul] 325 mg (65 mg iron) tablet 325 mg PO Q OTHER DAY ondansetron 4 mg tablet,disintegrating 4 mg PO Q12H Patient Comments: TOME LUCI TABLETA POR V A ORAL BECKY VECES AL D A FOR 5 DAYS Discontinued famotidine 40 mg tablet 40 mg PO .bedtime Qty: 30 0RF nitrofurantoin monohyd/m-cryst [Macrobid] 100 mg capsule 100 mg PO Q12H Rx Instructions: must administer with a meal/food lisinopril 5 mg tablet 5 mg PO QDAY metformin 1,000 mg tablet 1,000 mg PO BID sucralfate 1 gram tablet 1 g PO BID glipizide 10 mg tablet 10 mg PO BID promethazine 25 mg tablet 25 mg PO Q8HR Januvia 100 mg tablet 100 mg PO QDAY Referrals: Yovany Garcia MD [Primary Care Provider, Family Practice] Patient/Caregiver Discharge Instructions Education Materials: Controlling High Blood Pressure, Diabetes and Heart Disease, Managing Your Glucose Level for ..., Diabetes Carbs Fats Protein Print Language: German Stand Alone Forms: Kerry Award Info., Patient Portal Info Letter Discharge Order Discharge Orders: Discharge (Routine); Ordered 05/01/25 Ordered By: Geo Barrios Quality Discharge Quality Measures none Attestestation MD Attestation I attest that I was physically present for the evaluation, physical examination, lab and imaging review of the patient with the residents. I discussed the case with the residents and agree with the findings and plans of care as documented above. Randi Young MD
--- NOTE | 2025-05-01 15:38 | ESPR_ITS ---
Documentation for date of: 05/01/25 Subjective Subjective Interval history: Patient seen and examined at bedside. Telemetry reviewed showing sinus rhythm average HR 70s. BP overnight 150-170/60-80 and IV labetalol 10 mg x1 given overnight with morning BP 110-130/50-70. Patient is still having 8/10 abdominal pain, denies chest pain. Patient reports she had heart attack 1 year ago with squeezing chest pain and this nature of chest pain is different, starting only a few days prior to admission. There is concern for pericarditis as however pain is not alleviated by sitting up and when taking deep breaths, does endorse both stomach and chest pain. ESR and CRP elevated 40 and 4.2 respectively however EKG unremarkable for FL depression or ST changes. Recommend to follow up outpatient with cardiology within 1 week of discharge and to increase losartan from 25 to 50 mg for adequate BP control. Exam Vital Signs Temp Pulse Resp BP Pulse Ox O2 Del Method O2 Flow Rate 97.0 F 72 14 169/79 H 99 Room Air 3 05/01/25 12:00 05/01/25 12:08 05/01/25 12:08 05/01/25 12:00 05/01/25 12:05/01/25 12:04/30/25 19:15 Narrative Exam GENERAL: AOx3, no acute distress, sitting up comfortably eating breakfast HEENT: NC/AT, mucous membranes dry, bilateral sclera anicteric CARDIOVASCULAR: regular rate and rhythm, S1/S2 present, no murmurs appreciated PULMONARY: clear to auscultation bilaterally, no rales/rhonchi/wheezes ABDOMINAL: soft, non-distended, no rebound/guarding, bowel sounds present, mild epigastric tenderness on palpation, mild right lower quadrant tenderness on palpation EXTREMITIES: no peripheral edema SKIN: warm and dry, intact, no rashes NEURO: CN II-XII grossly intact, no focal deficits, alert, following commands Objective Labs 05/01/25 05:17 05/01/25 05:17 Labs: Laboratory Results - last 24 hr 05/01/25 05:17 WBC 7.5 RBC 3.69 L Hgb 10.1 L Hct 31.3 L MCV 85 MCH 27.4 MCHC 32.3 RDW Std Deviation 40.0 Plt Count 296 Neut % (Auto) 46 Lymph % (Auto) 36 Coleman % (Auto) 16 H Eos % (Auto) 2 Baso % (Auto) 0 Neut # (Auto) 3.4 Lymph # (Auto) 2.7 Coleman # (Auto) 1.2 H Eos # (Auto) 0.2 Baso # (Auto) 0.0 Immature Gran # (Auto) 0.02 H Absolute Nucleated RBC 0.00 Immature Gran % 0 Nucleated RBC % 0 ESR 40 H Sodium 139 Potassium 4.0 Chloride 103 Carbon Dioxide 28.0 Anion Gap 8 BUN 8 L Creatinine 1.0 Estim Creat Clear Calc 59.4 L eGFR > 60 BUN/Creatinine Ratio 8 L Glucose 201 H Calculated Osmolality 281 Calcium 8.9 Magnesium 1.8 C-Reactive Prot, Quant 4.2 H Quality Measures Quality Measures none Advance care planning discussed with:: patient Assessment & Plan Assessment Current Active Medications: Generic Name Dose Route Start Last Admin Trade Name Freq PRN Reason Stop Dose Admin Acetaminophen 650 mg 04/28/25 18:25 04/30/25 00:29 Acetaminophen 325 Mg Tablet PO 05/28/25 18:24 650 mg Q6H PRN Administration PAIN OR FEVER > 100.4 Hydrocodone Bitart/Acetaminophen 1 tab 04/28/25 18:25 04/30/25 08:25 Hydrocodone/Apap 5/325 Tablet PO 05/03/25 18:24 1 tab Q6HR PRN Administration PAIN SCALE 4-10(Mod-Sev Al Hydrox/Mg Hydrox/Simethicone 15 ml 04/29/25 12:00 05/01/25 12:15 Mg Hyd/Al Hyd/Cesar (Maalox Reg) Susp 30 Ml Udc PO 05/29/25 11:59 15 ml QID CARLITOS Administration Aspirin 81 mg 04/29/25 09:00 04/29/25 09:18 Aspirin Ec 81 Mg Tabec PO 05/29/25 08:59 81 mg On Hold: 04/29/25 10:53 QDAY CARLITOS Administration Atorvastatin Calcium 80 mg 04/28/25 21:00 04/30/25 20:24 Atorvastatin Calcium 20 Mg Tablet PO 05/28/25 20:59 80 mg HS CARLITOS Administration Dextrose 50 ml 04/28/25 18:39 Dextrose 50%-Water Inj 50 Ml Syringe IV 05/28/25 18:38 Q15MIN PRN BG <50 OR BG <70 & pt unresponsive Glucagon 1 mg 04/28/25 18:39 Glucagon Inj 1 Mg Vial IM Q15MIN PRN BG <70, and no IV access Heparin Sodium/Dextrose 25,000 unit in 250 mls @ 10 mls/hr 04/28/25 18:30 04/28/25 21:00 Heparin In D5w Ivpb IV 05/12/25 18:29 0 units/kg/hr On Hold: 04/28/25 22:40 .Q24H CARLITOS 0 mls/hr Protocol Titration 11.917 UNITS/KG/HR Ceftriaxone Sodium/Dextrose 1 gm in 50 mls @ 100 mls/hr 04/28/25 19:07 04/30/25 13:02 Rocephin/D5w 1gm Iv Premix IV 05/05/25 19:06 100 mls/hr QDAY@1400 CARLITOS Administration Insulin Human Lispro 0 unit 04/30/25 21:00 05/01/25 12:15 Insulin Lispro (Admelog) 1 Unit/0.01 Ml Unit SC 05/30/25 20:59 5 unit ACHS CARLITOS Administration Protocol Labetalol HCl 10 mg 04/30/25 11:22 04/30/25 16:03 Labetalol Inj 5 Mg/Ml Vial 20 Ml IVP 05/28/25 20:28 10 mg Q4HR PRN Administration Hypertension SBP >160 Losartan Potassium 25 mg 04/30/25 11:30 05/01/25 08:22 Losartan Potassium 25 Mg Tablet PO 05/30/25 11:29 25 mg QDAY CARLITOS Administration Ondansetron HCl 4 mg 04/28/25 18:25 Ondansetron Inj 2 Mg/Ml Inj 2 Ml IVP 05/28/25 18:24 Q6H PRN NAUSEA OR VOMITING Protocol Pantoprazole Sodium 40 mg 04/29/25 11:00 05/01/25 08:21 Pantoprazole Inj 40 Mg Vial IVP 05/29/25 10:59 40 mg BID CARLITOS Administration Vitamin B Complex/Vit C/Folic Acid 1 tab 04/30/25 11:30 05/01/25 08:21 Vit B12/Vit C/Fa (Nephrovite) Tablet PO 05/30/25 11:29 1 tab QDAY CARLITOS Administration Plan Jennifer Mims 64F pmhx of IDDM2, HTN, HLD, and GERD who presents to [facility] on 04/28 with 1 week of chest pain, abdominal pain, dysuria and melena. Cardiology consulted for management workup for NSTEMI. #NSTEMI likely type II #Melena vs #UTI #Chest pain Patient presented with chest pain with associated abdominal pain, dysuria and melena. Admission troponins of 0.126 eventually down trended to 0.116 and Hgb 10.4 baseline ~11. EKG showing sinus rhythm with right bundle branch block with a rate of [address] segment elevation or depression. Patient reports that she has had this chest pain before and is relieved with water. Ddx includes demand ischemia secondary to acute blood loss from gastric ulcers leading to melena versus demand ischemia secondary to urinary tract infection. Underlying CAD cannot completely ruled out due to patient's numerous comorbidities such as HTN and IDDM2 as well as heavy aortic calcification seen on CT abdomen pelvis in 12/2024. Chest pain appears atypical, patient reports sore throat and chlils day of admission but denies prior illness before that. Stated that chest pain resolved with water and not similar to previous squeezing chest pain one year ago where she states she had a heart attack . Pain is not alleviated by sitting up and is not reproducible on palpation. Reports when taking deep breaths, does have stomach and chest pain both. ESR and CRP elevated 40 and 4.2 respectively and pericarditis on differential however EKG unremarkable for FL depression or ST changes. 04/28/25 Echo shows Normal left ventricular size and function. Estimated ejection fraction is 60-65%. Grade I diastolic dysfunction Normal right ventricular size and function. Normal RVSP Mildly dilated LA. Trace mitral and mild tricuspid regurgitation noted. No pericardial effusion. Plan: - Recommend GI consultation to evaluate melena and discontinue heparin drip and ASA iso melena - Abx for UTI per primary team - Follow up outpatient cardiology for further workup and management - CTM CBC and CMP - Telemetry for further cardiac monitoring - Keep K>4 and Mg>2 at all times #HTN Patient reports being on antihypertensive however does not know the name, per chart review lisinopril 10 mg daily. BP on admission 111/64 Plan: - Recommend increasing Losartan 25 mg QD to 50 mg QD. - CTM BP #IDDM2 #HLD Per chart review, patient has diabetes and was recently prescribed insulin. A1c 10.8 Trig 106, choelsterol 130, LDL 78, HDL 31. Plan: - SSI - Management per primary team #Bilateral thyromegaly including 17 mm nodule right lobe of the thyroid near the isthmus #Right lobe liver 10 mm focal area of enhancement Chronic medical conditions nonpertinent to the following presentation Plan: - Management per primary team Thank you for the consultation and allowing participation in patient care Plan of care discussed with attending Dr. Vasquez. Rose Carey, DO PGY-1 Internal Medicine Attending Provider Attestation/Addendum I have personally seen and examined the patient separately on the above date of service and discussed the plan of care with the resident. I reviewed the resident Dr. Rose Carey consultation progress note and agree with the resident findings and plan in the note above and have also edited the documentation to reflect my findings and plan. Yury Vasquez M.D. Interventional Cardiology
--- NOTE | 2025-05-01 17:19 | PC.NURSE ---
Was notified by MD that discharge instructions and discharge medications were changed after pt was already discharged, MD asked if RN can call pt and update pt on changes. RN called pt to explain changes over the phone to [phone]. Pt states she does not read well and needs to go to a friends house to have her help explain. Pt called RN back and I gave her updates on medications through her friend. Pt states she understands what medication to continue and which ones to discontinue. Encouraged pt to call back if she still has questions. Changes made were to begin Tresiba 10 units at bedtime, and Janumet. Stop taking Victosa, metformin, Glipizide, and Junuvia for high risk of hypoglycemia.
== END 2025-05-01 15:50 | disposition home or self-care (01) | DRG 198 ==
LOC: SERX 17:47 → SERHOLD 18:52 → S2NX 22:00
PROVIDERS: Nurse Practitioner Family; Specialist; Student in an Organized Health Care Education/Training Program; Admitting Provider Student in an Organized Health Care Education/Training Program; Emergency Provider Emergency Medicine; PCP Family Medicine; Visit Provider Student in an Organized Health Care Education/Training Program
PROC: 0DBK8ZX Excision of Ascending Colon, Via Natural or Artificial Opening Endoscopic, Diagnostic (ICD-10-PCS; CPT 43239; principal; 2025-04-29 20:15)
PROC: 0DJD8ZZ Inspection of Lower Intestinal Tract, Via Natural or Artificial Opening Endoscopic (ICD-10-PCS; CPT 45378; principal; 2025-04-30 20:30)
DX: I24.89 Other forms of acute ischemic heart disease (principal); Z79.4 Long term (current) use of insulin; I10 Essential (primary) hypertension; E78.00 Pure hypercholesterolemia, unspecified; I25.2 Old myocardial infarction; N39.0 Urinary tract infection, site not specified; E11.65 Type 2 diabetes mellitus with hyperglycemia; K21.9 Gastro-esophageal reflux disease without esophagitis; I45.10 Unspecified right bundle-branch block; E01.0 Iodine-deficiency related diffuse (endemic) goiter; J44.9 Chronic obstructive pulmonary disease, unspecified; E05.90 Thyrotoxicosis, unspecified without thyrotoxic crisis or storm; K64.1 Second degree hemorrhoids; K29.71 Gastritis, unspecified, with bleeding; I25.10 Atherosclerotic heart disease of native coronary artery without angina pectoris; Z79.899 Other long term (current) drug therapy; Z79.01 Long term (current) use of anticoagulants; Z79.82 Long term (current) use of aspirin; D12.2 Benign neoplasm of ascending colon
CPT/HCPCS: 36415; 71046; 80048; 80053; 80061; 80307; 81001; 83036; 83735; 83880; 84100; 84439; 84443; 84484; 85025; 85610; 85652; 85730; 86140; 87040; 87077; 87086; 87186; 87400; 87502; 87811; 93005; 93306; 96365; 96366; 96375; 99285; A4649; J0360; J0696; J1200; J1644; J1756; J1815; J2250; J2470; J3010; J3490; J7121; J7999; A9270; J1920